=== PATIENT | male | born 1955 | race Caucasian/White ===

== ENCOUNTER 2019-09-17 15:40 | Emergency (ER) | payer BC ==
[~2019-09-17 15:40] MED LIST: CRESTOR20 MG PO; EXFORGE 10-1601 EACH PO; FENOFIBRATE134 MG PO; JANUVIA50 MG PO; METFORMIN HCL1000 MG PO; NORCO 7.5-3251 EACH PO
[2019-09-17] MEDS ORDERED: NITROGLYCERIN 0.4 MG SUBL ONE (17:42)
[2019-09-17] MEDS ORDERED: CLOPIDOGREL BISULFATE 75 MG TAB ONE (17:42)
== END 2019-09-17 15:58 | disposition short-term general hospital (02) ==
LOC: ER 15:40
DX: R07.9 Chest pain, unspecified (principal)

== ENCOUNTER 2019-09-17 15:54 | Inpatient (IN) | payer BC, OTHER ==
[2019-09-17] VITALS (13 sets, daily range): BP systolic 96–148; BP diastolic 70–97
[~2019-09-17] VITALS: Ht 185.4 cm; Wt 111.1 kg
--- NOTE | 2019-09-17 15:55 | NUR ---
12 LEAD NOTED INFERIOR TN, RECIPRICAL CHANGES NOTED. 1 MM ELVEATION CONSECTIVE LEADS. STAT CALL TO CRISTIAN Hensley TO ACTIVATE HAM BONER.
--- NOTE | 2019-09-17 15:55 | NUR ---
CALLED 911 FOR TRANSFER TO [facility] MAIN FOR STEMI PER MD
--- NOTE | 2019-09-17 16:14 | Emergency Department Note ---
History of Present Illnes History of Present Illness Chief Complaint: chest pain History of Present Illness This is a 63 year old male . Arrival Mode: Car Additional Treatment PSYCHOTHERAPIST SOCIAL WORKER: none Sugarcane Planter Required: No Onset (how long ago): hour(s) (1 hour) Onset quality: gradual Duration (how long): hour(s) (1 hour) Timing of current episode: constant Progression: unchanged Chronicity: new Relieving factors: none Associated symptoms: chest pain Treatments prior to arrival: none Risk factors: htn chol ex tobacco Past Medical/Family History Physician Review I have reviewed the patient's past medical and family history. Any updates have been documented here. Past Medical History Recent Fever: No Clinical Suspicion of Infectio: No New/Unexplained Change in Ment: No Past Medical History: Hypertension, Diabetes Other Medical History: hyperlipedemia Past Surgical History: None Social History Smoking Cessation: Former smoker Alcohol Use: None Any Illegal Drug Use: No TB Exposure/Symptoms: No Physically hurt or threatened: No Review of Systems Review of Systems Constitutional: no symptoms EENTM: no symptoms Cardiovascular: as per HPI Respiratory: no symptoms Gastrointestinal: no symptoms Genitourinary: no symptoms Musculoskeletal: no symptoms Neurological: no symptoms Psychological: no symptoms Endocrine: no symptoms Hematological/Lymphatic: no symptoms Review of other systems All other systems reviewed and negative. Physical Exam Related Data Allergies: Coded Allergies: No Known Allergies (Unverified , 11/10/10) Physical Exam CONSTITUTIONAL Constitutional: well-developed, well-nourished HENT HENT: normocephalic, atraumatic EYES Eyes: PERRL, conjunctivae normal NECK Neck: ROM normal, supple PULMONARY Pulmonary: effort normal, breath sounds normal CARDIOVASCULAR Cardiovascular: regular rhythm, heart sounds normal, intact distal pulses, capillary refill normal, normal rate, strong pulses GASTROINTESTINAL Abdominal: soft, nontender GENITOURINARY SKIN Skin: warm, dry MUSCULOSKELETAL Musculoskeletal: ROM normal NEUROLOGICAL Neurological: alert, oriented x 3, DTRs normal, no gross motor or sensory deficits PSYCHOLOGICAL Psychological: mood/affect normal, behavior normal, thought content normal, judgement normal Results Diagnostics Tests Diagnostic test(s) reviewed: Yes (ekg with st elevation inferior wall) Critical Care Time Subsequent provider I assumed direction of critical care for this patient from another provider of my specialty. Assessment & Plan Assessment & Plan Final Impression: (1) STEMI INVOLVING RIGHT CORONARY ARTERY Assessment & Plan acute inferior wall mi to skilled labor Depart Disposition: ADMITTED Home Meds Reported Medications Hydrocodone Bit/Acetaminophen (NORCO 7.5-325 TABLET) 1 Each Tablet, 1 EA PO PRN for PAIN, TAB every 6 hours if needed 04/08/14 Rosuvastatin Calcium (CRESTOR) 20 Mg Tablet, 20 MG PO DAILY 04/05/14 Amlodipine/Valsartan (EXFORGE 10-160 MG TABLET) 1 Each Tablet, PO DAILY 04/05/14 Fenofibrate,Micronized (FENOFIBRATE) 134 Mg Capsule, 134 MG PO DAILY 04/05/14 Sitagliptin Phosphate (JANUVIA) 50 Mg Tablet, 50 MG PO DAILY 04/05/14 Metformin Hcl (METFORMIN HCL) 1,000 Mg Tablet, 1000 MG PO BID 04/05/14 Medications in the ED aspirin and oxygen KAIA GUO MD September 17, 2019 16:14
[2019-09-17] MEDS ORDERED: ASPIRIN 81 MG CHEW TAB PO ONE (16:15)
[2019-09-17] MEDS ORDERED: ASPIRIN 81 MG CHEW TAB ONE (16:21)
--- NOTE | 2019-09-17 16:22 | NUR ---
pt left hopd and on phone with charge in er and pt arrived to [facility] main at 1631
--- NOTE | 2019-09-17 16:22 | NUR ---
EKG AND LABS SENT WITH EMS
[2019-09-17] MEDS ORDERED: NITROGLYCERIN 0.4 MG SUBL SL ONE ×2 (17:00→17:30)
[2019-09-17] MEDS ORDERED: CLOPIDOGREL BISULFATE 75 MG TAB PO ONE (17:00)
[2019-09-17] MEDS ORDERED: CLOPIDOGREL BISULFATE 300 MG TAB-DO NOT STOCK PO ONE (17:00)
[2019-09-17 17:16] LABS: BASOPHILS # (AUTO) 0.1 (0.0-0.1); BASOPHILS % 0.7 % (0.0-1.0); EOSINOPHILS # (AUTO) 0.1 (0.0-0.4); EOSINOPHILS % 0.8 % (0.0-6.0); HEMATOCRIT 51.9 % (38.2-49.6); HEMOGLOBIN 17.9 g/dL (14.0-18.0); LYMPHOCYTES # (AUTO) 1.8 (1.0-3.2); LYMPHOCYTES % 16.7 % (18.0-39.1); MEAN CORPUSCULAR HEMOGLOBIN 30.5 pg (28-32); MEAN CORPUSCULAR HGB CONC 34.5 g/dL (31-35); MEAN CORPUSCULAR VOLUME 88.6 fL (81-99); MONOCYTES # (AUTO) 0.7 (0.2-0.8); MONOCYTES % 6.6 % (4.4-11.3); NEUTROPHILS # (AUTO) 7.9 (2.1-6.9); NEUTROPHILS % 74.7 % (38.7-80.0); PLATELET COUNT 238 x10e3/uL (140-360); RED BLOOD COUNT 5.86 x10e6/uL (4.3-5.7); RED CELL DISTRIBUTION WIDTH 13.3 % (11.7-14.4)
[2019-09-17 17:26] LABS: INR 0.97; PARTIAL THROMBOPLASTIN TIME 26.9 seconds (23.8-35.5); PROTHROMBIN TIME 13.5 seconds (11.9-14.5)
[2019-09-17] MEDS ORDERED: ONDANSETRON HCL INJ 2MG/ML 2ML 2 MG/ML VIAL IV PRN (17:30)
[2019-09-17] MEDS ORDERED: CLOPIDOGREL BISULFATE 75 MG TAB PO SCH (17:30)
[2019-09-17 17:34] LABS: ALANINE AMINOTRANSFERASE 38 IU/L (0-55); ALBUMIN 4.5 g/dL (3.5-5.0); ALBUMIN/GLOBULIN RATIO 1.4 (0.8-2.0); ALKALINE PHOSPHATASE 111 IU/L (40-150); ANION GAP 19.4 mmol/L (8-16); BLOOD UREA NITROGEN 10 mg/dL (7-26); BUN/CREATININE RATIO 11 (6-25); CALCIUM 10.4 mg/dL (8.4-10.2); CARBON DIOXIDE 21 mmol/L (22-29); CHLORIDE 102 mmol/L (98-107); CREATINE KINASE 146 IU/L (30-200); CREATININE, SERUM 0.93 mg/dL (0.72-1.25); EST GLOMERULAR FILTRATION RATE > 60 ML/MIN (60-); GLUCOSE 213 mg/dL (74-118); MAGNESIUM 1.7 MG/DL (1.3-2.1); POTASSIUM 4.4 mmol/L (3.5-5.1); SODIUM 138 mmol/L (136-145)
--- NOTE | 2019-09-17 17:42 | NUR ---
laborer filter plant nurse in room with patient, reviewed consent and signed with laborer filter plant nurse.
[2019-09-17] MEDS ORDERED: NITROGLYCERIN 0.4 MG SUBL SL NR (17:45)
[2019-09-17] MEDS ORDERED: HEPARIN SOD (PORCINE) 1000 UNIT/ML 30ML ONE (17:51)
[2019-09-17] MEDS ORDERED: MIDAZOLAM HCL 2 MG/2 ML VIAL ONE ×2 (17:51→18:15)
[2019-09-17] MEDS ORDERED: FENTANYL CITRATE/PF 100MCG/2 ML INJ ONE (17:51)
[2019-09-17] MEDS ORDERED: LIDOCAINE HCL 2% LOCAL 20 ML VIAL ONE ×2 (17:52→19:05)
[2019-09-17] MEDS ORDERED: HEPARIN SOD/SOD CHLORIDE 2,000 ML ONE (17:52)
[2019-09-17] MEDS ORDERED: SODIUM CHLORIDE 0.9% 1000ML 1,000 ML ONE (17:52)
[2019-09-17] MEDS ORDERED: IOPAMIDOL 370 MG/ML 200 ML INFUS..BTL INJ ONE ×2 (17:52→18:39)
[2019-09-17] MEDS ORDERED: NITROGLYCERIN/D5W 200 MCG/ML 250 ML ONE (17:52)
[2019-09-17] MEDS ORDERED: VERAPAMIL HCL 2.5 MG/ML 2 ML VIAL ONE (18:15)
[2019-09-17] MEDS ORDERED: HEPARIN SOD/SOD CHLORIDE 1,000 ML ONE (18:59)
[2019-09-17] MEDS ORDERED: HEPARIN 25,000U/0.45% NS 250ML 250 ML IV ONE (18:59)
--- NOTE | 2019-09-17 19:37 | NUR ---
RECEIVED FROM MASTER BAKER AWAKE AND ALERT. BALLOON PUMP IN PLACE TO RIGHT GROIN, NO BLEEDING OR HEMATOMA AT SITE. BALLOON PUMP SET AT 1:1 WITH AUGMENTATION AT 100. DENIES ANY C/O CHEST PAIN AT THIS TIME. BEDSIDE MONITOR SHOWS NSR WITH ISOLATED BUT FREQUENT PVC. TRB TO RIGHT WRIST WITH 12 CC OF AIR IN BALLOON PER CL NURSE. TO BEGIN DECREASING PRESSURE AT 2100. HEPARIN GTT TO BE STARTED AFTER TRB REMOVED
--- OUTSIDE RECORDS SUMMARY | 2019-09-17 19:55 | XMS REPORT ---
Author Author [facility] t Organization [facility] Address [address] [place] [address] Phone Unavailable Care Team Providers Care Environmental Test Technician Name Role Phone DO PRACHI MCDONALD PCP Payers Payer Name Policy Type Policy Number Effective Date Expiration Date S ana [employer] [place] Ppo NA [facility] Problems This patient has no known problems. Allergies, Adverse Reactions, Alerts This patient has no known allergies or adverse reactions. Social History Social Habit Start Date Stop Date Quantity Comments Source Sex Assigned At 1955 00:00:00 1955 00:00:00 Male [facility] Medications Ordered Medication Name Filled Medication Name Start Date Stop Da te Current Medication? Ordering Clinician Indication Dosage Frequency Signature (SIG) Comments Components Source Amlodipine/Valsartan (Exforge 10-160 Mg Tablet) 1 Each TABLET Amlodipine/Valsartan (Exforge 10-160 Mg Tablet) 1 Each TABLET Ye s Daily [facility] Fenofibrate,Micronized (Fenofibrate) 134 Mg CAPSULE Fe nofibrate,Micronized (Fenofibrate) 134 Mg CAPSULE Yes 134 Daily [facility] Hydrocodone Bit/Acetaminophen ([place]atiot 7.5-325 Tablet) 1 Each TABLET Hydrocodone Bit/Acetaminophen ([place]at[place] 7.5-325 Tablet) 1 Each TABLET Yes 1 As Needed [facility] Metformin Hcl Metformin Hcl Yes 1000 Twice A Day [facility] Rosuvastatin Calcium (Crestor) 20 Mg TABLET Rosuvastat in Calcium (Crestor) 20 Mg TABLET Yes 20 Daily [facility] Sitagliptin Phosphate (Januvia) 50 Mg TABLET Sitaglipt in Phosphate (Januvia) 50 Mg TABLET Yes 50 Daily [facility] Vital Signs Vital Name Observation Time Observation Value Comments Source Weight 2019-09-17 15:54:00 245 [lb_av] [facility] BMI (Body Mass Index) 2019-09-17 15:54:00 32.3 kg/m2 [facility] Procedures This patient has no known procedures. Encounters Start Date/Time End Date/Time Encounter Type Admission Type [facility] Care Department Encounter ID Source 2019-09-17 15:40:00 2019-09-17 15:58:00 Departed Emergency Room [facility] [id number] [facility] 2019-09-17 15:54:00 2019-09-17 15:54:00 Registered Emergency Room [facility] [id number] [facility] Results This patient has no known results.
--- NOTE | 2019-09-17 21:12 | NUR ---
INITIATED REMOVAL OF TR BAND - NO BLEEDING OR HEMATOMA TO SITE
--- NOTE | 2019-09-17 21:32 | NUR ---
CONTINUE TO REMOVE TR BAND, NO BLEEDING OR HEMATOMA NOTED AT SITE
[2019-09-17] MEDS ORDERED: MORPHINE SULFATE INJ 4 MG/ML INJ 1ML IV PRN (21:45)
--- NOTE | 2019-09-17 21:47 | NUR ---
ATTEMPTED TO CALL REPORT TO [facility], REQUESTED CALL BACK IN 30 MINUTES
--- NOTE | 2019-09-17 21:52 | NUR ---
CONTINUE TO REMOVE TR BAND
[2019-09-17] MEDS ORDERED: ATORVASTATIN 40 MG TAB PO SCH (22:00)
[2019-09-17] MEDS ORDERED: SODIUM CHLORIDE 0.9% 1000ML 1,000 ML IV SCH (22:00)
[2019-09-17] MEDS ORDERED: HEPARIN SOD (PORCINE) 5,000 UNIT/ML VIAL IV NR (22:05)
--- NOTE | 2019-09-17 22:12 | NUR ---
CONTINUE TO DECREASE PRESSURE TO TR BAND, NO HEMATOMA OR BLEEDING NOTED AT SITE
[2019-09-17] MEDS ORDERED: HEPARIN 25,000 UNIT 1,000 UNIT in DEXTROSE 5% 250ML 250 ML IV SCH (22:15)
--- NOTE | 2019-09-17 22:30 | NUR ---
REPORT CALLED TO IVAN LOPEZ AT [facility]. HE IS AWARE THAT CURRENT ORDERS ARE TO START HEPARIN DRIP 2 HRS AFTER TR BAND IS REMOVED AND TR BAND WILL BE REMOVED BY 2300.
--- NOTE | 2019-09-17 22:35 | NUR ---
CALL PLACED TO MARY JESSICA, SPOUSE, NOTIFIED OF TRANSFER AND UNIT/BED PATIENT WILL BE GOING TO
--- NOTE | 2019-09-17 22:57 | NUR ---
RIGHT TRB REMOVED, NO BLEEDING OR HEMATOMA AT SITE
--- NOTE | 2019-09-18 00:05 | NUR ---
[facility] HERE TO TRANSPORT PATIENT TO [facility]. [facility]. ACCOMPANIED BY CARTRIDGE ASSEMBLING MACHINE ADJUSTER X 2
[2019-09-18] MEDS ORDERED: ASPIRIN 81 MG ENTERIC COATED PO SCH (09:00)
[2019-09-18] MEDS ORDERED: METOPROLOL SUCCINATE 25 MG TAB XL PO SCH (09:00)
--- NOTE | 2019-09-20 10:42 | Consultation ---
DATE OF CONSULTATION: 09/17/2019 Cardiology Consultation HISTORY OF PRESENT ILLNESS: This is a 63-year-old man with a history of hypertension, hyperlipidemia, prior tobacco use, and diabetes mellitus, [facility] with progressively worsening chest pain. The patient states that he was mowing his lawn, started to have [id number] central chest pressure with radiation to the left arm, associated with an unwell feeling, diaphoresis, and nausea. He was found to have acute changes inferiorly of his electrocardiogram and was taken to the catholic priest. He was noted to have severe multivessel coronary artery disease. An intra-aortic balloon pump was placed and he was transported to the intensive care unit. PAST MEDICAL HISTORY: As stated above. PAST SURGICAL HISTORY: Cardiac catheterization. PAST FAMILY HISTORY: Noncontributory to current illness. SOCIAL HISTORY: No current illicit drug, alcohol, or tobacco use. He is a former smoker. Social alcohol use. ALLERGIES: NO KNOWN DRUG ALLERGIES. MEDICATIONS: See medication reconciliation form. PHYSICAL EXAMINATION: VITAL SIGNS: Temperature 98.1, heart rate is 75, respirations are 18, blood pressure is 120/72, and oxygen saturation is 97% on 2 L nasal cannula. GENERAL: Well-appearing, well built, no apparent distress. Alert and oriented x3. HEAD: Normocephalic and atraumatic. EYES: The extraocular muscles are intact. Conjunctiva is clear. NECK: No JVD. No bruits. CARDIOVASCULAR: Regular rate and rhythm. LUNGS: Clear to auscultation. ABDOMEN: Soft, nontender, and nondistended. EXTREMITIES: No clubbing, cyanosis, or edema. VASCULAR: 2+ pulses. SKIN: Warm, dry, and intact. NEUROLOGIC: No focal deficits noted. Electrocardiogram showed normal sinus rhythm with premature ventricular complexes and ST elevations inferiorly. IMPRESSION: 1. Inferior ST-elevation myocardial infarction. 2. Coronary artery disease. 3. Hypertension. 4. Hyperlipidemia. 5. Diabetes mellitus. 6. Premature ventricular contractions. 7. Former tobacco use. RECOMMENDATIONS: The patient will need to be transferred for coronary artery bypass graft surgery. Unfortunately, he received clopidogrel at an outlying facility. We will need to wait for washout or check TN use. Continue intra-aortic balloon pump one-to-one counterpulsation. He was started on aspirin and atorvastatin along with metoprolol. We will continue to follow along until transfer. DO BONI Torres/WALLY /[id number]
== END 2019-09-18 00:06 | disposition short-term general hospital (02) | DRG 272 ==
LOC: FSED 15:54 → CATH LAB 17:55 → ICU 19:52
PROC: 02703ZZ Dilation of Coronary Artery, One Artery, Percutaneous Approach (ICD-10-PCS; principal; 2019-09-17)
PROC: 5A02210 Assistance with Cardiac Output using Balloon Pump, Continuous (ICD-10-PCS; 2019-09-17)
DX: I21.19 ST elevation (STEMI) myocardial infarction involving other coronary artery of inferior wall (principal); I25.10 Atherosclerotic heart disease of native coronary artery without angina pectoris; I10 Essential (primary) hypertension; I49.3 Ventricular premature depolarization; Z87.891 Personal history of nicotine dependence; E11.9 Type 2 diabetes mellitus without complications; E78.5 Hyperlipidemia, unspecified
CPT/HCPCS: 33970; 36415; 80053; 82550; 82553; 83735; 83880; 84484; 85025; 85610; 85730; 87635; 92920; 93005; 93454; 99152; 99153; 99284; C1725; C1769; C1887; J1644; J2001; J2250; J3010; J7030; Q9967

== ENCOUNTER 2020-01-17 19:00 | Emergency (ER) | payer BC, OTHER ==
[~2020-01-17] VITALS: Ht 185.4 cm; Wt 108.9 kg
--- NOTE | 2020-01-17 19:19 | Emergency Department Note ---
History of Present Illnes History of Present Illness Chief Complaint: Extremity Trauma/Pain History of Present Illness This is a 64 year old male accidentally fell on a curb twisted left knee, hurt on walking. Able to walk but slow Arrival Mode: Car Onset (how long ago): hour(s) Radiation: Reports non-radiation Severity: moderate Onset quality: sudden Duration (how long): hour(s) Progression: unchanged Relieving factors: immobilization Exacerbating factors: movement Associated symptoms: Reports denies other symptoms Treatments prior to arrival: none Past Medical/Family History Physician Review I have reviewed the patient's past medical and family history. Any updates have been documented here. Past Medical History Past Medical History: Hypertension, Diabetes, CAD Other Medical History: hyperlipedemia Past Surgical History: None Other Surgery: UNK Social History Smoking Cessation: Unknown if ever smoked Alcohol Use: None TB Exposure/Symptoms: No Physically hurt or threatened: No Family History Family history of heart diseas: No Other Last Tetanus: UNK Any Pre-Existing Lines (PICC,: No Review of Systems Review of Systems Constitutional: Reports no symptoms EENTM: Reports no symptoms Cardiovascular: Reports no symptoms Respiratory: Reports no symptoms Gastrointestinal: Reports no symptoms Genitourinary: Reports no symptoms Musculoskeletal: Reports as per HPI, Reports joint pain, Reports muscle pain Integumentary: Reports no symptoms Neurological: Reports no symptoms Psychological: Reports no symptoms Endocrine: Reports no symptoms Hematological/Lymphatic: Reports no symptoms Physical Exam Related Data Allergies: Coded Allergies: No Known Allergies (Unverified , 11/10/10) Vital signs reviewed: Yes Physical Exam CONSTITUTIONAL Constitutional: Present well-developed, Present well-nourished, Present obese HENT HENT: Present normocephalic, Present atraumatic, Present oropharynx clear/moist, Present nose normal HENT L/R: Present left ext ear normal, Present right ext ear normal EYES Eyes: Reports PERRL, Reports conjunctivae normal NECK Neck: Present ROM normal PULMONARY Pulmonary: Present effort normal, Present breath sounds normal CARDIOVASCULAR Cardiovascular: Present regular rhythm, Present heart sounds normal, Present capillary refill normal, Present normal rate GASTROINTESTINAL Abdominal: Present soft, Present nontender, Present bowel sounds normal GENITOURINARY Genitourinary: Present exam deferred SKIN Skin: Present warm, Present dry MUSCULOSKELETAL Musculoskeletal: Present ROM normal, Present tenderness (tender left lateral knee), Present swelling (slight swelling) NEUROLOGICAL Neurological: Present alert, Present oriented x 3, Present no gross motor or sensory deficits PSYCHOLOGICAL Psychological: Present mood/affect normal, Present judgement normal Results Imaging Imaging results reviewed: Yes Imaging Comments no acute , has DJD Assessment & Plan Medical Decision Making MDM sprain Assessment & Plan Final Impression: (1) Acute pain due to trauma (2) Sprain of left knee Depart Disposition: HOME, SELF-nursing home Meds Active Scripts Ondansetron Hcl* (ZOFRAN*) 4 Mg Tablet, 4 MG SL Q6H PRN for NAUSEA, #14 MG 0 Refills Prov:LUPE ESTEBAN MD 01/17/20 Acetaminophen/Codeine* (TYLENOL # 3*) 1 Ea Tab, 1 TAB PO Q4HR PRN for pain or cough for 60 Days, #30 Prov:LUPE ESTEBAN MD 01/17/20 Reported Medications Hydrocodone Bit/Acetaminophen (NORCO 7.5-325 TABLET) 1 Each Tablet, 1 EA PO PRN for PAIN, TAB every 6 hours if needed 04/08/14 Rosuvastatin Calcium (CRESTOR) 20 Mg Tablet, 20 MG PO DAILY 04/05/14 Amlodipine/Valsartan (EXFORGE 10-160 MG TABLET) 1 Each Tablet, PO DAILY 04/05/14 Fenofibrate,Micronized (FENOFIBRATE) 134 Mg Capsule, 134 MG PO DAILY 04/05/14 Sitagliptin Phosphate (JANUVIA) 50 Mg Tablet, 50 MG PO DAILY 04/05/14 Metformin Hcl (METFORMIN HCL) 1,000 Mg Tablet, 1000 MG PO BID 04/05/14 Physician Attestation Provider Attestation A OPERATOR risk score 280. f/u with his orthopedic doctor LUPE ESTEBAN MD Jan 17, 2020 19:19
--- NOTE | 2020-01-17 19:51 | Diagnostic Imaging Report ---
Knee limited left CPT code: 79202 Indication: Fall, lateral pain Technique: AP and lateral view obtained of the left knee. Comparison: None Findings: No fracture or dislocation. Mild prominence of the tibial spines. Calcifications of the menisci, lateral greater than medial. The lateral aspect of the lateral compartment demonstrates prominent soft tissue. No joint effusion. Diffuse ectasia of the popliteal artery. IMPRESSION: No acute fracture or dislocation. Mild degenerative changes of the knee with bilateral chondrocalcinosis. Acute meniscal injury cannot be excluded by x-ray. Consider further evaluation of the knee with MRI. This can be performed on an outpatient basis. Signed by: Dr. Wesley Salazar MD on 01/17/2020 7:48 PM
[2020-01-17] MEDS ORDERED: TYLENOL # 31 EA PO (19:53)
[2020-01-17] MEDS ORDERED: ZOFRAN4 MG SL (19:53)
--- OUTSIDE RECORDS SUMMARY | 2020-01-17 21:34 | XMS REPORT | Clinical Summary ---
Author Author [facility] Address Unknown Phone Unavailable Care Team Providers Care Human Services Assistant Name Role Phone Amos Ruiz DO PCP Allergies Not on File Medications Not on file Active Problems Not on file Encounters Care Team Description Date Type Specialty 12/06/2019 Travel 11/30/2019 Travel Amos Ruiz DO Pain in left hip (Primary Dx); Unilateral primary osteoarthritis, left hip 11/30/2019 Transcribe Access Orders after 01/16/2019 Social History Date Tobacco Use Types Packs/Day Years Used Never Assessed Sex Assigned at Date Recorded Not on file Last Filed Vital Signs Not on file Plan of Treatment Health Maintenance Due Date Last Done Comments DIABETIC RETINAL EYE EXAM 1955 DIABETIC FOOT EXAM 1966 URINE MICROALBUMIN 1966 COLONOSCOPY SCREENING 2006 SHINGLES VACCINES (#1) 2006 INFLUENZA VACCINE 11/20/2019 Procedures Comments Procedure Name Priority Date/Time Associated Diag nosis MRI HIP WO CONTRAST LT Routine 12/06/2019 Pain in left hip 12:05 PM CDT Unilateral primary osteoarthritis, left hip after 01/16/2019 Results * MRI HIP WO CONTRAST LT (12/06/2019 12:05 PM CDT) Specimen Narrative Performed At [facility] EXAMINATION: MRI HIP WO CONTRAST LT CLINICAL HISTORY: M25.552 Pain in lef t hip, M16.12 Unilateral primary osteoarthritis left hip, DJD LEFT HIP PAIN M16.12 M25.552 TECHNIQUE: Multiplanar, multisequence M R imaging examination of the left hip obtained without contrast. Radial sangita ging also archived and interpreted. COMPARISON: None. IMPRESSION: 1.Marrow signal show no acute fracture or AVN. Hypertrophy of the acetabular roof with mild subchondral sclerosis an d marrow cystic formation indicating mild to moderate OA. Mild chondral thinning peripherally in the superior aspect of the hip joint. No joint effusion or synovitis. 2.A nondisplaced tear of the superior a cetabular labrum with lobulated parameniscal cyst formation measuring 3 cm, series 8 image 30 and series 9 image 5. 3.Low-grade partial tearing of the comm on hamstring tendon origin. Remaining visualized muscle groups appear well-ma intained. Visualized portions of the sciatic nerve appear well-maintained. SUMMARY: Mild to moderate hip OA with a likely d egenerative nondisplaced superior acetabular labral tear and parameniscal cyst. Low-grade partial tearing common hamstr ing tendon origin [id number] Procedure Note Hm Interface, Radiology Results - 12/06/2019 12:39 PM CDT EXAMINATION: MRI HIP WO CONTRAST LT CLINICAL HISTORY: M25.552 Pain in left hip, M16.12 Unilateral primary osteoarthritis left hip, DJD LEFT HIP PAIN M16.12 M25.552 TECHNIQUE: Multiplanar, multisequence MR imaging examination of the left hip obtained without contrast. Radial imaging also archived and interpreted. COMPARISON: None. IMPRESSION: 1.Marrow signal show no acute fracture o r AVN. Hypertrophy of the acetabular roof with mild subchondral sclerosis and marrow cystic formation indicating mild to moderate OA. Mild chondral thinning peripherally in the superior aspect of the hip joint. No joint effusion or synovitis. 2.A nondisplaced tear of the superior ac etabular labrum with lobulated parameniscal cyst formation measuring 3 cm, series 8 image 30 and series 9 image 5. 3.Low-grade partial tearing of the commo n hamstring tendon origin. Remaining visualized muscle groups appear well-maintained. Visualized portions of the sciatic nerve appear well-maintained. SUMMARY: Mild to moderate hip OA with a likely degenerative nondisplaced superior acetabular labral tear and parameniscal cyst. 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
--- OUTSIDE RECORDS SUMMARY | 2020-01-17 21:35 | XMS REPORT | Clinical Summary ---
Author Author TARUN [facility] Address Unknown Phone Unavailable Care Team Providers Care Lmsw Name Role Phone PCP Unavailable Allergies No Known Allergies Medications End Date Status Medication Sig Dispensed Refills Start Date Active fenofibrate micronized Take 134 mg 0 (LOFIBRA) 134 MG capsule by mouth every morning before breakfast. Active insulin glargine (LANTUS To use 20 45 mL 3 0 SOLOSTAR U-100 INSULIN) units bid. 0 100 unit/mL (3 mL) InPn Active insulin pen needles (BD Use 5 a day. 500 each 3 0 ULTRA-FINE ZENY) 4 mm x 0 32 G 09/24/2020 Active blood-glucose meter kit Glucometer, 500 each 3 Test strips 0 to use 5 a day # 500 refills x 3; lancets to use 5 a day # 500 refills x3. Active rosuvastatin (CRESTOR) 20 Take 1 tablet 30 tablet 0 MG tablet (20 mg total) 0 by mouth daily. Active clopidogreL (PLAVIX) 75 Take 1 tablet 30 tablet 0 mg tablet (75 mg total) 0 by mouth daily. Active losartan (COZAAR) 50 MG Take 1 tablet 30 tablet 0 tablet (50 mg total) 0 by mouth daily. Active metoprolol tartrate Take 1 tablet 60 tablet 0 (LOPRESSOR) 50 MG tablet (50 mg total) 0 by mouth 2 (two) times daily. Active furosemide (LASIX) 40 MG Take 1 tablet 30 tablet 0 tablet (40 mg total) 0 by mouth daily. Active potassium chloride SA Take 1 tablet 30 tablet 0 (K-DUR,KLOR-CON) 20 MEQ (20 mEq 0 tablet total) by mouth daily. Active NOVOLOG FLEXPEN U-100 INJECT 4 20 0 09/29/19 2 INSULIN 100 unit/mL (3 UNITS 3 TIMES 0 mL) InPn DAILY AFTER MEALS Active apixaban (ELIQUIS) 5 mg Take 1 tablet 180 tablet 0 Tab tablet (5 mg total) 0 by mouth 2 (two) times daily. 09/26/2019 Discontinued rosuvastatin (CRESTOR) 20 Take 20 mg by 0 MG tablet mouth daily. 09/26/2019 Discontinued amlodipine-valsartan Take 1 tablet 0 (EXFORGE) 10-160 mg per by mouth tablet daily. 09/25/2019 Discontinued SITagliptin (JANUVIA) 50 Take 50 mg by 0 MG tablet mouth daily. 09/21/2019 Discontinued metFORMIN (GLUCOPHAGE) Take 1,000 mg 0 1000 MG tablet by mouth 2 (two) times daily with breakfast and dinner. 10/07/2019 Discontinued insulin lispro (HUMALOG To use via 45 mL 3 KWIKPEN INSULIN) 100 sliding scale 0 unit/mL InPn from 4 to 20 units three times a day pre meals. 10/08/2019 Discontinued aspirin 81 MG EC tablet Take 1 tablet 30 tablet 0 (81 mg total) 0 by mouth daily. 10/01/2019 HYDROcodone-acetaminophen Take 1 tablet 20 tablet 0 (NORCO 10-325) 10-325 mg by mouth 0 per tablet every 6 (six) hours as needed for Pain for up to 5 days. 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 Type 2 diabetes mellitus 09/18/2019 Hypertension 09/18/2019 HLD (hyperlipidemia) 09/18/2019 Acute respiratory insufficiency Hypotension due to hypovolemia Acute blood loss anemia Thrombocytopenia Hyperglycemia Encounters Care Team Description Date Type Specialty Kim Arias RN sts 30 day f/u 2019 Telephone Intensive Care Poli Campa MD 10/08/2019 Anesthesia Event Nemesio Grove MD EPS & ABLATION OF SVT W/ CARTO & MAC ANE STHESIA 10/08/2019 Surgery Poli Campa MD 10/07/2019 Anesthesia Cardiology Event Nemesio Grove MD Kazim, Lubna Syed, MD Acute blood loss anemia 10/07/2019 Hospital Cardiology - Encounter 10/08/2019 Janine Campbell MD Greet, Brian David, MD Post-operative state 10/07/2019 Office Visit Cardiology Viktoria Diana MD 10/07/2019 Orders Only Internal Medicine Janine Campbell MD BYPASS,AORTO CORONARY AYDEE/SVG 09/21/2019 Surgery Maurizio Fernandez, GOSIA 09/21/2019 Anesthesia Event Nick Walters MD Sheth, Samar S, MD Kazim, Viktoria Gimenez MD Coronary artery disease involving [place] coronary artery of [place] heart with unstable angina pectoris (HCC) (Primary Dx) 09/18/2019 Hospital Cardiology - Encounter 09/26/2019 09/18/2019 Travel 09/18/2019 Orders Only General Internal Me dicine after 01/16/2019 Family History Medical History Relation Name Comments Heart disease Father Relation Name Status Comments Father Social History Date Tobacco Use Types Packs/Day Years Used Quit: 04/21/2019 Former Smoker Cigarettes 0.5 20 Smokeless Tobacco: Never Used Alcohol Use Drinks/Week oz/Week Comments No Alcohol Habits Answer Date Recorded How often do you have a drink containing alcohol? Never 09/18/2019 How many drinks containing alcohol do you have on No t asked a typical day when you are drinking? How often do you have six or more drinks on one Not asked occasion? Sex Assigned at Date Recorded Not on file Industry Job Start Date Occupation Not on file Not on file Not on file Travel End Travel History Travel Start No recent travel history available. Last Filed Vital Signs Time Taken Vital Sign Reading 10/08/2019 10:00 PM CDT Blood Pressure 125/84 10/08/2019 10:00 PM CDT Pulse 92 10/08/2019 7:35 PM CDT Temperature 36.3 C (97.4 F) 10/08/2019 10:00 PM CDT Respiratory Rate 17 10/08/2019 10:00 PM CDT Oxygen Saturation 96% 09/23/2019 8:00 PM CDT Inhaled Oxygen 28% Concentration 10/07/2019 10:50 AM CDT Weight 104.8 kg (231 lb) 10/07/2019 10:50 AM CDT Height 182.9 cm (6') 10/07/2019 10:50 AM CDT Body Mass Index 31.33 Plan of Treatment Health Maintenance Due Date Last Done Comments COLON CANCER SCREENING 1956 COLONOSCOPY PNEUMOCOCCAL VACCINE 2-64 1962 YEARS AT RISK (1 of 1 - PPSV23) DIABETIC EYE EXAM 1966 DIABETIC FOOT EXAM 1966 URINE MICROALBUMIN 1966 INFLUENZA VACCINE (#1) 2019 HEMOGLOBIN A1C 03/21/2020 09/20/2019, 020 LIPID PANEL 09/19/2022 09/20/2019, 020 Procedures Comments Procedure Name Priority Date/Time Associated Diag nosis RHYTHM STRIP - SCAN 10/21/2019 2:10 PM CDT RHYTHM STRIP - SCAN 10/12/2019 10:32 AM CDT REPORT OF PROCEDURE - 10/12/2019 ENDOSCOPY SCAN 10:32 AM CDT CARDIAC CATH REPORT - 10/12/2019 SCAN 10:32 AM CDT POCT-GLUCOSE METER Routine 10/08/2019 8:58 PM CDT EPS & ABLATION OF SVT W/ 10/08/2019 SVT (suprave ntricular CARTO & MAC ANESTHESIA 1:59 PM CDT tachycardia) ( HCC) POCT-GLUCOSE METER Routine 10/08/2019 12:28 PM CDT POCT-GLUCOSE METER Routine 10/08/2019 8:29 AM CDT CBC W/PLT COUNT & AUTO Routine 10/08/2019 DIFFERENTIAL 1:37 AM CDT CBC W/PLT COUNT & AUTO Routine 10/08/2019 DIFFERENTIAL 1:37 AM CDT PT/APTT Routine 10/08/2019 1:37 AM CDT MAGNESIUM Routine 10/08/2019 1:37 AM CDT BASIC METABOLIC PANEL (7) Routine 10/08/2019 1:37 AM CDT TROPONIN I Routine 10/08/2019 1:37 AM CDT POCT-GLUCOSE METER Routine 10/07/2019 10:15 PM CDT POCT-GLUCOSE METER Routine 10/07/2019 9:11 PM CDT POCT-GLUCOSE METER Routine 10/07/2019 5:13 PM CDT SARS-COV2/RT-PCR ([facility] & STAT 10/07/2019 REF LABS) 3:48 PM CDT CBC W/PLT COUNT & AUTO Routine 10/07/2019 DIFFERENTIAL 3:42 PM CDT TROPONIN I Routine 10/07/2019 3:42 PM CDT B-TYPE NATRIURETIC FACTOR Routine 10/07/2019 (BNP) 3:42 PM CDT CBC W/PLT COUNT & AUTO Routine 10/07/2019 DIFFERENTIAL 3:42 PM CDT PT/APTT Routine 10/07/2019 3:42 PM CDT MAGNESIUM Routine 10/07/2019 3:42 PM CDT BASIC METABOLIC PANEL (7) Routine 10/07/2019 3:42 PM CDT ECG 12-LEAD Routine 10/07/2019 3:09 PM CDT XR CHEST 1 VIEW Routine 10/07/2019 PORTABLE/BEDSIDE 2:50 PM CDT ECG 12-LEAD Routine 10/07/2019 11:16 AM CDT Procedure Note - Interface, External Ris In - 10/07/2019 3:18 PM CDT Ventricula r Rate 141 BPM Atrial Rate 282 BPM QRS Duration 84 ms Q-T Interval 192 ms QTC Calculatio n(Bazett) 294 ms P [place] 252 degrees R [place] -38 degrees T [place] 104 degrees Poor data quality, interpreta tion may be adversely affected Atrial flutter with 2:1 A-V conduction Left axis deviation Pulmonary disease pattern Inferior infarct (cited on or before 0) Abnormal ECG When compared with ECG of 11:13, No significan t change was found ECG 12-LEAD Routine 10/07/2019 11:13 AM CDT Procedure Note - Interface, External Ris In - 10/07/2019 3:18 PM CDT Ventricula r Rate 141 BPM Atrial Rate 282 BPM QRS Duration 82 ms Q-T Interval 190 ms QTC Calculatio n(Bazett) 291 ms P [place] 257 degrees R [place] -36 degrees T [place] 124 degrees Atrial flutter with 2:1 A-V conduction Left axis deviation Inferior infarct (cited on or before 0) Anterior infarct (cited on or before 0) Abnormal ECG When compared with ECG of 11:11, No significan t change was found ECG 12-LEAD Routine 10/07/2019 11:13 AM CDT ECG 12-LEAD Routine 10/07/2019 11:11 AM CDT Procedure Note - Interface, External Ris In - 10/07/2019 3:18 PM CDT Ventricula r Rate 141 BPM Atrial Rate 282 BPM QRS Duration 84 ms Q-T Interval 192 ms QTC Calculatio n(Bazett) 294 ms P [place] 255 degrees R [place] -35 degrees T [place] 114 degrees Atrial flutter with 2:1 A-V conduction Left axis deviation Inferior infarct (cited on or before 0) Possible Anterior infarct (cited on or before 0) Abnormal ECG When compared with ECG of 10:59, Atrial flutter has replaced Sinus rhythm Vent. rate has increased BY 62 BPM Serial changes of evolving Anterior infarct Present Serial changes of evolving Inferior infarct Present ECG 12-LEAD STAT 10/07/2019 11:11 AM CDT REPORT OF PROCEDURE - 09/28/2019 ENDOSCOPY SCAN 10:12 AM CDT RHYTHM STRIP - SCAN 09/28/2019 10:12 AM CDT VASCULAR DIAGRAM -SCAN 09/28/2019 10:12 AM CDT POCT-GLUCOSE METER Routine 09/26/2019 12:05 PM CDT POCT-GLUCOSE METER Routine 09/26/2019 6:52 AM CDT MAGNESIUM Routine 09/26/2019 4:14 AM CDT BASIC METABOLIC PANEL (7) Routine 09/26/2019 4:14 AM CDT CBC (HEMOGRAM ONLY) Routine 09/26/2019 4:14 AM CDT POCT-GLUCOSE METER Routine 09/25/2019 9:16 PM CDT POCT-GLUCOSE METER Routine 09/25/2019 4:57 PM CDT XR ABDOMEN / KUB 1 VIEW Routine 09/25/2019 3:07 PM CDT POCT-GLUCOSE METER Routine 09/25/2019 12:13 PM CDT POCT-GLUCOSE METER Routine 09/25/2019 7:14 AM CDT XR CHEST 1 VIEW Routine 09/25/2019 PORTABLE/BEDSIDE 6:35 AM CDT CBC W/PLT COUNT & AUTO Routine 09/25/2019 DIFFERENTIAL 4:22 AM CDT PHOSPHORUS Routine 09/25/2019 4:22 AM CDT MAGNESIUM Routine 09/25/2019 4:22 AM CDT CBC W/PLT COUNT & AUTO Routine 09/25/2019 DIFFERENTIAL 4:22 AM CDT BASIC METABOLIC PANEL (7) Routine 09/25/2019 4:22 AM CDT POCT-GLUCOSE METER Routine 09/24/2019 9:16 PM CDT LIMITED 2D ECHOCARDIOGRAM Routine 09/24/2019 6:37 PM CDT POCT-GLUCOSE METER Routine 09/24/2019 4:40 PM CDT POCT-GLUCOSE METER Routine 09/24/2019 11:48 AM CDT XR CHEST 1 VIEW Routine 09/24/2019 PORTABLE/BEDSIDE 8:58 AM CDT POCT-GLUCOSE METER Routine 09/24/2019 7:13 AM CDT CBC W/PLT COUNT & AUTO Routine 09/24/2019 DIFFERENTIAL 4:44 AM CDT PHOSPHORUS Routine 09/24/2019 4:44 AM CDT MAGNESIUM Routine 09/24/2019 4:44 AM CDT CBC W/PLT COUNT & AUTO Routine 09/24/2019 DIFFERENTIAL 4:44 AM CDT BASIC METABOLIC PANEL (7) Routine 09/24/2019 4:44 AM CDT POCT-GLUCOSE METER Routine 09/23/2019 10:08 PM CDT POCT-GLUCOSE METER Routine 09/23/2019 4:25 PM CDT POCT-GLUCOSE METER Routine 09/23/2019 11:46 AM CDT MAGNESIUM Routine 09/23/2019 11:17 AM CDT BASIC METABOLIC PANEL (7) Routine 09/23/2019 11:17 AM CDT CALCIUM, IONIZED Routine 09/23/2019 11:16 AM CDT ECG 12-LEAD Routine 09/23/2019 10:59 AM CDT Procedure Note - Interface, External Ris In - 09/23/2019 11:03 AM CDT Ventricula r Rate 79 BPM Atrial Rate 79 BPM P-R Interval 152 ms QRS Duration 86 ms Q-T Interval 358 ms QTC Calculatio n(Bazett) 410 ms P [place] 30 degrees R [place] -21 degrees T [place] -15 degrees Sinus rhythm with occasional Premature ventricula r complexes Inferior infarct (cited on or before 0) Anterolate ral infarct , possibly acute ACUTE FL / STEMI Abnormal ECG When compared with ECG of 0 05:05, Anterior infarct is now Present Anterolate ral infarct is now Present Non-specif ic change in ST segment in Anterior leads ST less elevated in Lateral leads ECG 12-LEAD Routine 09/23/2019 10:59 AM CDT XR CHEST 1 VIEW Routine 09/23/2019 PORTABLE/BEDSIDE 10:45 AM CDT POCT-GLUCOSE METER Routine 09/23/2019 7:43 AM CDT CBC W/PLT COUNT & AUTO Routine 09/23/2019 DIFFERENTIAL 3:46 AM CDT PHOSPHORUS Routine 09/23/2019 3:46 AM CDT MAGNESIUM Routine 09/23/2019 3:46 AM CDT CBC W/PLT COUNT & AUTO Routine 09/23/2019 DIFFERENTIAL 3:46 AM CDT BASIC METABOLIC PANEL (7) Routine 09/23/2019 3:46 AM CDT CALCIUM, IONIZED Routine 09/23/2019 3:46 AM CDT POCT-GLUCOSE METER Routine 09/23/2019 12:41 AM CDT HEMOGLOBIN AND HEMATOCRIT Routine 09/22/2019 7:36 PM CDT MAGNESIUM Routine 09/22/2019 7:36 PM CDT CALCIUM, IONIZED Routine 09/22/2019 7:36 PM CDT BASIC METABOLIC PANEL (7) Routine 09/22/2019 7:36 PM CDT POCT-GLUCOSE METER Routine 09/22/2019 6:47 PM CDT TRANSFUSION SERVICE 09/22/2019 REPORT - SCAN 5:52 PM CDT POCT-GLUCOSE METER Routine 09/22/2019 1:51 PM CDT POCT-GLUCOSE METER Routine 09/22/2019 8:28 AM CDT HEMOGLOBIN AND HEMATOCRIT Routine 09/22/2019 8:26 AM CDT LACTIC ACID, ARTERIAL Routine 09/22/2019 6:27 AM CDT POCT-GLUCOSE METER Routine 09/22/2019 6:03 AM CDT ECG 12-LEAD Routine 09/22/2019 5:05 AM CDT Procedure Note - Interface, External Ris In - 09/22/2019 5:07 AM CDT Ventricula r Rate 67 BPM Atrial Rate 67 BPM P-R Interval 166 ms QRS Duration 82 ms Q-T Interval 394 ms QTC Calculatio n(Bazett) 416 ms P [place] 33 degrees R [place] -27 degrees T [place] -26 degrees Sinus rhythm with occasional Premature ventricula r complexes Inferior infarct , age undetermin ed Abnormal ECG ECG 12-LEAD Routine 09/22/2019 5:05 AM CDT CALCIUM, IONIZED Routine 09/22/2019 3:47 AM CDT OXYGEN SATURATION, Routine 09/22/2019 MEASURED 3:47 AM CDT BLOOD GAS, ARTERIAL Routine 09/22/2019 3:47 AM CDT CBC (HEMOGRAM ONLY) Routine 09/22/2019 3:47 AM CDT PHOSPHORUS Routine 09/22/2019 3:47 AM CDT MAGNESIUM Routine 09/22/2019 3:47 AM CDT BASIC METABOLIC PANEL (7) Routine 09/22/2019 3:47 AM CDT POCT-GLUCOSE METER Routine 09/22/2019 3:44 AM CDT XR CHEST 1 VIEW Routine 09/22/2019 PORTABLE/BEDSIDE 1:40 AM CDT POCT-GLUCOSE METER Routine 09/22/2019 1:19 AM CDT POCT-GLUCOSE METER Routine 09/21/2019 11:09 PM CDT MAGNESIUM Routine 09/21/2019 11:01 PM CDT POTASSIUM Routine 09/21/2019 11:01 PM CDT BLOOD GAS, ARTERIAL Routine 09/21/2019 11:01 PM CDT POCT-GLUCOSE METER Routine 09/21/2019 9:16 PM CDT BLOOD GAS, ARTERIAL Routine 09/21/2019 9:12 PM CDT PREPARE RBC STAT 09/21/2019 8:03 PM CDT CALCIUM, IONIZED Routine 09/21/2019 8:03 PM CDT HGB/HCT (H&H) - STAT LAB Routine 09/21/2019 7:51 PM CDT GLUCOSE-STAT LAB Routine 09/21/2019 7:51 PM CDT POTASSIUM-STAT LAB Routine 09/21/2019 7:51 PM CDT SODIUM NA-STAT LAB Routine 09/21/2019 7:51 PM CDT BLOOD GAS, ARTERIAL Routine 09/21/2019 7:51 PM CDT OXYGEN SATURATION, Routine 09/21/2019 MEASURED 7:51 PM CDT LACTIC ACID, ARTERIAL Routine 09/21/2019 7:51 PM CDT RRL CRITICAL LABS Routine 09/21/2019 (ABG,NA,K,H&H,GLUCOSE) 7:51 PM CDT ECG 12-LEAD Routine 09/21/2019 7:20 PM CDT ECG 12-LEAD Routine 09/21/2019 7:20 PM CDT Procedure Note - Interface, External Ris In - 09/21/2019 11:42 PM CDT Ventricula r Rate 65 BPM Atrial Rate 65 BPM P-R Interval 196 ms QRS Duration 86 ms Q-T Interval 406 ms QTC Calculatio n(Bazett) 422 ms P [place] 6 degrees R [place] -28 degrees T [place] -14 degrees Normal sinus rhythm Inferior infarct , age undetermin ed Abnormal ECG MAGNESIUM Routine 09/21/2019 6:58 PM CDT POTASSIUM Routine 09/21/2019 6:58 PM CDT PHOSPHORUS STAT 09/21/2019 6:58 PM CDT POCT-GLUCOSE METER Routine 09/21/2019 6:53 PM CDT XR CHEST 1 VIEW Routine 09/21/2019 PORTABLE/BEDSIDE 5:57 PM CDT TRANSFUSION SERVICE 09/21/2019 REPORT - SCAN 5:51 PM CDT PT/APTT STAT 09/21/2019 4:37 PM CDT PROTHROMBIN TIME/INR STAT 09/21/2019 4:37 PM CDT OXYGEN SATURATION, STAT 09/21/2019 MEASURED 4:21 PM CDT CBC W/PLT COUNT & AUTO STAT 09/21/2019 DIFFERENTIAL 4:18 PM CDT HGB/HCT (H&H) - STAT LAB STAT 09/21/2019 4:18 PM CDT GLUCOSE-STAT LAB STAT 09/21/2019 4:18 PM CDT POTASSIUM-STAT LAB STAT 09/21/2019 4:18 PM CDT SODIUM NA-STAT LAB STAT 09/21/2019 4:18 PM CDT COMPREHENSIVE METABOLIC STAT 09/21/2019 PANEL 4:18 PM CDT CBC W/PLT COUNT & AUTO STAT 09/21/2019 DIFFERENTIAL 4:18 PM CDT RRL CRITICAL LABS STAT 09/21/2019 (ABG,NA,K,H&H,GLUCOSE) 4:18 PM CDT MAGNESIUM STAT 09/21/2019 4:18 PM CDT BLOOD GAS, ARTERIAL STAT 09/21/2019 4:18 PM CDT BASIC METABOLIC PANEL (7) STAT 09/21/2019 4:18 PM CDT POCT-ACT Routine 09/21/2019 2:39 PM CDT HGB/HCT (H&H) - STAT LAB STAT 09/21/2019 2:37 PM CDT GLUCOSE-STAT LAB STAT 09/21/2019 2:37 PM CDT POTASSIUM-STAT LAB STAT 09/21/2019 2:37 PM CDT SODIUM NA-STAT LAB STAT 09/21/2019 2:37 PM CDT BLOOD GAS, ARTERIAL STAT 09/21/2019 2:37 PM CDT CALCIUM, IONIZED STAT 09/21/2019 2:37 PM CDT RRL CRITICAL LABS STAT 09/21/2019 (ABG,NA,K,H&H,GLUCOSE) 2:37 PM CDT POCT-ACT Routine 09/21/2019 1:48 PM CDT HGB/HCT (H&H) - STAT LAB STAT 09/21/2019 1:45 PM CDT GLUCOSE-STAT LAB STAT 09/21/2019 1:45 PM CDT POTASSIUM-STAT LAB STAT 09/21/2019 1:45 PM CDT SODIUM NA-STAT LAB STAT 09/21/2019 1:45 PM CDT BLOOD GAS, ARTERIAL STAT 09/21/2019 1:45 PM CDT RRL CRITICAL LABS STAT 09/21/2019 (ABG,NA,K,H&H,GLUCOSE) 1:45 PM CDT POCT-ACT Routine 09/21/2019 1:18 PM CDT HGB/HCT (H&H) - STAT LAB STAT 09/21/2019 1:15 PM CDT GLUCOSE-STAT LAB STAT 09/21/2019 1:15 PM CDT POTASSIUM-STAT LAB STAT 09/21/2019 1:15 PM CDT SODIUM NA-STAT LAB STAT 09/21/2019 1:15 PM CDT BLOOD GAS, ARTERIAL STAT 09/21/2019 1:15 PM CDT RRL CRITICAL LABS STAT 09/21/2019 (ABG,NA,K,H&H,GLUCOSE) 1:15 PM CDT POCT-ACT Routine 09/21/2019 12:48 PM CDT HGB/HCT (H&H) - STAT LAB STAT 09/21/2019 12:45 PM CDT GLUCOSE-STAT LAB STAT 09/21/2019 12:45 PM CDT POTASSIUM-STAT LAB STAT 09/21/2019 12:45 PM CDT SODIUM NA-STAT LAB STAT 09/21/2019 12:45 PM CDT BLOOD GAS, ARTERIAL STAT 09/21/2019 12:45 PM CDT RRL CRITICAL LABS STAT 09/21/2019 (ABG,NA,K,H&H,GLUCOSE) 12:45 PM CDT POCT-ACT Routine 09/21/2019 12:21 PM CDT POCT-ACT Routine 09/21/2019 10:46 AM CDT ANESTHESIA MARIAM Routine 09/21/2019 10:19 AM CDT HGB/HCT (H&H) - STAT LAB STAT 09/21/2019 10:17 AM CDT GLUCOSE-STAT LAB STAT 09/21/2019 10:17 AM CDT POTASSIUM-STAT LAB STAT 09/21/2019 10:17 AM CDT SODIUM NA-STAT LAB STAT 09/21/2019 10:17 AM CDT BLOOD GAS, ARTERIAL STAT 09/21/2019 10:17 AM CDT CALCIUM, IONIZED STAT 09/21/2019 10:17 AM CDT RRL CRITICAL LABS STAT 09/21/2019 (ABG,NA,K,H&H,GLUCOSE) 10:17 AM CDT MARIAM 09/21/2019 Coronary artery dis ease 10:00 AM CDT with angina pectoris, unspecified vessel or lesion type, unspecified whether [place] or transplanted heart (HCC) Special Needs (ICU BED NEEDED) ENDOSCOPIC HARVEST,VEIN 09/21/2019 Coronary nicky ry disease 10:00 AM CDT with angina pectoris, unspecified vessel or lesion type, unspecified whether [place] or transplanted heart (HCC) Special Needs (ICU BED NEEDED) BYPASS,AORTO CORONARY 09/21/2019 Coronary artery disease AYDEE/SVG 10:00 AM CDT with angina pectori s, unspecified vessel or lesion type, unspecified whether [place] or transplanted heart (HCC) Special Needs (ICU BED NEEDED) POCT-GLUCOSE METER Routine 09/21/2019 8:00 AM CDT APTT Routine 09/21/2019 6:44 AM CDT MAGNESIUM Routine 09/21/2019 6:44 AM CDT BASIC METABOLIC PANEL (7) Routine 09/21/2019 6:44 AM CDT CBC (HEMOGRAM ONLY) Routine 09/21/2019 6:44 AM CDT PLATELET AGGREGATION: Routine 09/21/2019 FUNCTION SCREEN 6:44 AM CDT POCT-GLUCOSE METER Routine 09/21/2019 6:38 AM CDT XR CHEST 1 VIEW STAT 09/20/2019 PORTABLE/BEDSIDE 11:46 PM CDT POCT-GLUCOSE METER Routine 09/20/2019 11:27 PM CDT POCT-GLUCOSE METER Routine 09/20/2019 8:23 PM CDT ECG 12-LEAD Routine 09/20/2019 6:05 PM CDT Procedure Note - Interface, External Ris In - 09/20/2019 6:08 PM CDT Ventricula r Rate 63 BPM Atrial Rate 63 BPM P-R Interval 196 ms QRS Duration 90 ms Q-T Interval 418 ms QTC Calculatio n(Bazett) 427 ms P [place] 0 degrees R [place] -31 degrees T [place] -8 degrees Normal sinus rhythm with sinus arrhythmia Left axis deviation Inferior infarct , age undetermin ed Possible Anterior infarct , age undetermin ed T wave abnormalit y, consider lateral ischemia Abnormal ECG ECG 12-LEAD Routine 09/20/2019 6:05 PM CDT ABORH, MANUAL STAT 09/20/2019 4:38 PM CDT POCT-GLUCOSE METER Routine 09/20/2019 4:22 PM CDT SARS-COV2/RT-PCR ([facility] & STAT 09/20/2019 REF LABS) 3:17 PM CDT TYPE AND SCREEN, Routine 09/20/2019 AUTOMATED 3:09 PM CDT POTASSIUM Routine 09/20/2019 3:09 PM CDT APTT Routine 09/20/2019 3:09 PM CDT PROTHROMBIN TIME/INR Routine 09/20/2019 3:09 PM CDT MAGNESIUM Routine 09/20/2019 3:09 PM CDT POCT-GLUCOSE METER Routine 09/20/2019 11:24 AM CDT APTT Routine 09/20/2019 9:13 AM CDT XR CHEST 1 VIEW Routine 09/20/2019 PORTABLE/BEDSIDE 8:17 AM CDT POCT-GLUCOSE METER Routine 09/20/2019 7:25 AM CDT CBC W/PLT COUNT & AUTO Routine 09/20/2019 DIFFERENTIAL 6:47 AM CDT LIPID PANEL Add-On 09/20/2019 6:47 AM CDT MAGNESIUM Routine 09/20/2019 6:47 AM CDT BASIC METABOLIC PANEL (7) Routine 09/20/2019 6:47 AM CDT PLATELET AGGREGATION: AP Routine 09/20/2019 FUNCTION SCREEN 6:47 AM CDT HEMOGLOBIN A1C Routine 09/20/2019 6:47 AM CDT CBC W/PLT COUNT & AUTO Routine 09/20/2019 DIFFERENTIAL 6:47 AM CDT APTT Routine 09/20/2019 2:11 AM CDT APTT Routine 09/19/2019 11:29 PM CDT MAGNESIUM Routine 09/19/2019 11:29 PM CDT POTASSIUM Routine 09/19/2019 11:29 PM CDT POCT-GLUCOSE METER Routine 09/19/2019 9:26 PM CDT APTT Routine 09/19/2019 4:38 PM CDT POCT-GLUCOSE METER Routine 09/19/2019 4:33 PM CDT POCT-GLUCOSE METER Routine 09/19/2019 1:19 PM CDT POCT-GLUCOSE METER Routine 09/19/2019 9:43 AM CDT APTT Routine 09/19/2019 9:24 AM CDT XR CHEST 1 VIEW STAT 09/19/2019 PORTABLE/BEDSIDE 7:53 AM CDT POCT-GLUCOSE METER Routine 09/19/2019 7:52 AM CDT VEIN MAPPING LEGS Routine 09/19/2019 BILATERAL 5:06 AM CDT CAROTID DOPPLER BILATERAL Routine 09/19/2019 4:48 AM CDT PLATELET AGGREGATION: Routine 09/19/2019 FUNCTION SCREEN 4:30 AM CDT CBC W/PLT COUNT & AUTO Routine 09/19/2019 DIFFERENTIAL 2:12 AM CDT BASIC METABOLIC PANEL (7) Routine 09/19/2019 2:12 AM CDT TROPONIN I Routine 09/19/2019 2:12 AM CDT CBC W/PLT COUNT & AUTO Routine 09/19/2019 DIFFERENTIAL 2:12 AM CDT APTT Routine 09/19/2019 2:12 AM CDT POCT-GLUCOSE METER Routine 09/18/2019 8:16 PM CDT TROPONIN I STAT 09/18/2019 8:08 PM CDT APTT Routine 09/18/2019 6:07 PM CDT POCT-GLUCOSE METER Routine 09/18/2019 4:11 PM CDT 2D ECHO W/ DOPPLER STAT 09/18/2019 (CW/PW/COLOR) 11:51 AM CDT XR CHEST 1 VIEW STAT 09/18/2019 PORTABLE/BEDSIDE 11:32 AM CDT POCT-GLUCOSE METER Routine 09/18/2019 11:27 AM CDT APTT Routine 09/18/2019 11:21 AM CDT TROPONIN I STAT 09/18/2019 11:21 AM CDT PLATELET AGGREGATION: STAT 09/18/2019 FUNCTION SCREEN 11:21 AM CDT POCT-GLUCOSE METER Routine 09/18/2019 7:48 AM CDT APTT Routine 09/18/2019 3:22 AM CDT ECG 12-LEAD Routine 09/18/2019 2:59 AM CDT Procedure Note - Interface, External Ris In - 09/18/2019 3:06 AM CDT Ventricula r Rate 70 BPM Atrial Rate 70 BPM P-R Interval 186 ms QRS Duration 88 ms Q-T Interval 372 ms QTC Calculatio n([place]) 401 ms P [place] 0 degrees R [place] -29 degrees T [place] 7 degrees Sinus rhythm with occasional Premature ventricula r complexes Inferior infarct , age undetermin ed Abnormal ECG No previous ECGs available ECG 12-LEAD Routine 09/18/2019 2:59 AM CDT XR CHEST 1 VIEW STAT 09/18/2019 PORTABLE/BEDSIDE 2:52 AM CDT CBC W/PLT COUNT & AUTO Routine 09/18/2019 DIFFERENTIAL 2:43 AM CDT TROPONIN I Routine 09/18/2019 2:43 AM CDT B-TYPE NATRIURETIC FACTOR Routine 09/18/2019 (BNP) 2:43 AM CDT MAGNESIUM Routine 09/18/2019 2:43 AM CDT BASIC METABOLIC PANEL (7) Routine 09/18/2019 2:43 AM CDT CBC W/PLT COUNT & AUTO Routine 09/18/2019 DIFFERENTIAL 2:43 AM CDT HEMOGLOBIN A1C Routine 09/18/2019 2:43 AM CDT LIPID PANEL Routine 09/18/2019 2:43 AM CDT TSH/FREE T4 IF INDICATED Routine 09/18/2019 2:43 AM CDT after 01/16/2019 Results * RHYTHM STRIP - SCAN (10/21/2019 2:10 PM CDT) Only the most recent of 3 results within the time period is included. Narrative Performed At This result has an attachment that is n ot available. * EKG-SCANNED (10/12/2019 10:32 AM CDT) Only the most recent of 2 results within the time period is included. Narrative Performed At This result has an attachment that is n ot available. * CARDIAC CATH REPORT - SCAN (10/12/2019 10:32 AM CDT) Narrative Performed At This result has an attachment that is n ot available. * POC-Glucose meter (10/08/2019 8:58 PM CDT) Only the most recent of 46 results within the time period is included. POC-Glucose Meter 224 (H)Comment: : TESTED AT 70 - 110 mg/dL [address], [facility] [id number]: Trumpet Player/Pbx Teacher ID = [id number] for OMEGA GUILLORY Specimen Blood Performing Organization Address [place] [place] [address] [address] [facility] * PT/aPTT (10/08/2019 1:37 AM CDT) Only the most recent of 3 results within the time period is included. Protime 15.1 (H) 11.9 - 14.2 seconds [facility] INR 1.2 <=5.9 [facility] PTT 31.4 22.5 - 36.0 seconds [facility] Specimen Blood Narrative Performed At Effective 09/16/2018: PT Reference Range Change [facility] New: 11.9-14.2Previous: 11.7-14.7 [facility] MEDICAL CE NTER RECOMMENDED COUMADIN/WARFARIN INR THERA PY RANGES STANDARD DOSE: 2.0-3.0Includes: PRO PHYLAXIS for venous thrombosis, systemic embolization; TREATMENT for venous thro mbosis and/or pulmonary embolus. HIGH RISK: Target INR is 2.5-3.5 for pa williams wiht mechanical heart valves. Performing Organization Address City/State/Zipcode Ph one Number [facility] [address] [place], [place] [address] [facility] * CBC with platelet count + automated diff (10/08/2019 1:37 AM CDT) Only the most recent of 9 results within the time period is included. WBC 8.1 3.5 - 10.5 K/L [facility] RBC 4.16 (L) 4.63 - 6.08 M/L [facility] Hemoglobin 12.6 (L) 13.7 - 17.5 GM/DL [facility] Hematocrit 37.7 (L) 40.1 - 51.0 % [facility] MCV 90.6 79.0 - 92.2 fL [facility] MCH 30.3 25.7 - 32.2 pg [facility] MCHC 33.4 32.3 - 36.5 GM/DL [facility] RDW 13.7 11.6 - 14.4 % [facility] Platelets 425 150 - 450 K/CU MM [facility] MPV 9.0 (L) 9.4 - 12.4 fL [facility] nRBC 0 0 - 0 /100 WBC [facility] % Neutros 62 % [facility] % Lymphs 26 % [facility] % Monos 7 % [facility] % Eos 3 % [facility] % Baso 1 % [facility] # Neutros 5.04 1.78 - 5.38 K/L [facility] # Lymphs 2.12 1.32 - 3.57 K/L [facility] # Monos 0.56 0.30 - 0.82 K/L [facility] # Eos 0.24 0.04 - 0.54 K/L [facility] # Baso 0.08 0.01 - 0.08 K/L [facility] Immature 1 0 - 1 % [facility] Granulocytes-Relative [facility] Specimen Blood Performing Organization Address [facility] one Number [place] [address] [facility] * Troponin I (10/08/2019 1:37 AM CDT) Only the most recent of 6 results within the time period is included. Troponin I 0.02 0.00 - 0.03 ng/mL [facility] Specimen Blood Narrative Performed At Troponin I (TnI) levels must be interpreted in the co ntext of the presenting [facility] symptoms and the clinical findings. Elevated TnI leve ls indicate myocardial [facility] damage, but are not specific for ischem ic heart disease. Elevated TnI levels are seen in patients with other cardiac con ditions (including myocarditis and congestive heart failure), and slight T nI elevations occur in patients with other conditions, including sepsis, koki al failure, acidosis, acute neurological disease, and persistent tachyarrhythmia . Trumpet Player ID - DB Performing Organization Address City/[facility] one Number [place] [address] [facility] * Magnesium (10/08/2019 1:37 AM CDT) Only the most recent of 17 results within the time period is included. Magnesium 1.9Comment: Specimen 1.6 - 2.6 mg/dL [facility] moderately hemolyzed [facility] Specimen Blood Narrative Performed At Trumpet Player ID - [id number] [facility] Performing Organization Address City/[facility] [place] one Number [place] [phone] [place], [place] [address] [facility] * Basic metabolic panel (10/08/2019 1:37 AM CDT) Only the most recent of 14 results within the time period is included. Sodium 132 (L) 136 - 145 meq/L [facility] Potassium 4.7Comment: Specimen 3.5 - 5.1 meq/L [facility] moderately hemolyzed [facility] Chloride 103 98 - 107 meq/L [facility] CO2 21 (L) 22 - 29 meq/L [facility] BUN 9 7 - 21 mg/dL [facility] Creatinine 0.68Comment: Specimen 0.57 - 1.25 mg/dL [facility] moderately hemolyzed [facility] Glucose 212 (H) 70 - 105 mg/dL [facility] Calcium 8.8 8.4 - 10.2 mg/dL [facility] EGFR 118Comment: ESTIMATED GFR IS mL/min/1.73 sq m [facility] NOT ACCURATE CREATININE [facility] CLEARANCE IN PREDICTING GLOMERULAR FILTRATION RATE. ESTIMATED GFR IS NOT APPLICABLE FOR DIALYSIS PATIENTS. Specimen Blood Narrative Performed At Trumpet Player ID - DB [facility] Performing Organization Address [facility] [place] one Number [address] [facility] * SARS-CoV2/RT-PCR (Asymptomatic ONLY) (10/07/2019 3:48 PM CDT) Only the most recent of 2 results within the time period is included. SARS-COV2/RT-PCR Not Detected Not Detected, Negative [facility] SARS-COV-2 PERFORMING LAB [facility] Specimen Other Narrative Performed At Negative results do not preclude SARS-C oV-2 infection and should not be used as [facility] the sole basis for patient management decisions. Nega tive results must be [facility] combined with clinical observations, pa tient history, and epidemiological information. A false negative result ma y occur if a specimen is improperly collected, transported or handled. The limit of detection for this assay i s 250 copies/mL. This SARS CoV-2 test is a rapid, real-t karina RT-PCR test intended for the qualitative detection of nucleic acid f rom SARS-CoV-2 in a nasopharyngeal swab specimen collected from individuals neri pected of COVID-19 by their healthcare provider. This test has not been Food and Drug Ad ministration (FDA) cleared or approved and has been authorized by FDA under an Emergency Use Authorization (EUA). This EUA will be effective until the declara tion that circumstances exist justifying the authorization of the emergency use of in vitro diagnostic tests for detection and/or diagnosis of COVID-19 is terminated under Section 564(b)(2) of the Act or the EUA is revoked under Sec tion 564(g) of the Act. Fact Sheet for Healthcare Providers: https://www.[facility]/Documents/Xpert%20Xpress%20SARS%20CoV-2/Fact%20Sheets/30 2-3802%29MPNU-ZGG-8%20HEALTHCARE%20PROV IDERS%20FACT%20SHEET.pdf Fact Sheet for Healthcare Patients: https://www.[employer]/Documents/Xpert%20Xpress%20SARS%20CoV-2/Fact%20Sheets/30 2-3801%55LTAD-HOD-6%20PATIENT%20FACT%20 SHEET.pdf Performing Laboratory: [address] [address] Performing Organization Address City/State/Zipcode Ph one Number [place] [address] [facility] * B-type Natriuretic Factor (BNP) (10/07/2019 3:42 PM CDT) Only the most recent of 2 results within the time period is included. BNP 166 (H) 0 - 100 pg/mL [facility] Specimen Blood Narrative Performed At Trumpet Player ID - BS [facility] Performing Organization Address City/[facility] Ph one Number [facility] [address] [place], [place] [address] [facility]ENTER * ECG 12 lead (10/07/2019 3:09 PM CDT) Only the most recent of 8 results within the time period is included. Specimen Narrative Performed At Ventricular Rate 137 BPM GE MUSE Atrial Rate 137 BPM P-R Interval 142 ms QRS Duration 84 ms Q-T Interval 266 ms QTC Calculation(Bazett) 401 ms R Rosston -38 degrees T Rosston 124 degrees Atrial flutter with 2 to 1 block Left axis deviation Inferior infarct (cited on or before ) Poor R wave progression Cannot rule out Possible Anterior infarct (cited on or before 20-SEP-2019) Abnormal ECG When compared with ECG of 07-OCT-2019 1 1:13, No significant changes Confirmed by Jorge A WHITE, GARRISON ([id number]) on 11/03/2019 3:28:47 PM Procedure Note Interface, External Ris In - 11/03/2019 3:28 PM CDT Ventricular Rate 137 BPM Atrial Rate 137 BPM P-R Interval 142 ms QRS Duration 84 ms Q-T Interval 266 ms QTC Calculation(Bazett) 401 ms R Rosston -38 degrees T Rosston 124 degrees Atrial flutter with 2 to 1 block Left axis deviation Inferior infarct (cited on or before 20-SEP-2019) Poor R wave progression Cannot rule out Possible Anterior infarct (cited on or before 20-SEP-2019) Abnormal ECG When compared with ECG of 07-OCT-2019 11:13, No significant changes Confirmed by Jorge A WHITE BASANT ([id number]) on 11/03/2019 3:28:47 PM Performing Organization Address City/State/[facility] Ph one Number GE MUSE * XR chest 1 view portable / bedside (10/07/2019 2:50 PM CDT) Only the most recent of 11 results within the time period is included. Specimen Narrative Performed At FINAL REPORT GE [employer] CLINICAL HISTORY: sob TECHNIQUE: 1 view of the chest. COMPARISON: 09/25/2019 IMPRESSION: There are no focal infiltrates or effus ions. The cardiomediastinal silhouette is magnified by technique wi th sternotomy wires. Signed: Olayinka Goetz MD Report Verified Date/Time: 0 15:28:20 Reading Location: [facility] Radiolo gy Reading Room Procedure Note Interface, External Ris In - 10/07/2019 3:30 PM CDT FINAL REPORT CLINICAL HISTORY: sob TECHNIQUE: 1 view of the chest. COMPARISON: 09/25/2019 IMPRESSION: There are no focal infiltrates or effusions. The cardiomediastinal silhouette is magnified by technique with sternotomy wires. Signed: Olayinka Goetz MD Report Verified Date/Time: 10/07/2019 15:28:20 Reading Location: [facility] Radiology Reading Room Performing Organization Address City/State/Zipcode Ph one Number GE RIS * VASCULAR DIAGRAM -SCAN (09/28/2019 10:12 AM CDT) Narrative Performed At This result has an attachment that is n ot available. * CBC (Hemogram only) (09/26/2019 4:14 AM CDT) Only the most recent of 3 results within the time period is included. WBC 8.9 3.5 - 10.5 K/L [facility] RBC 3.64 (L) 4.63 - 6.08 M/L [facility] Hemoglobin 11.3 (L) 13.7 - 17.5 GM/DL [facility] Hematocrit 33.3 (L) 40.1 - 51.0 % [facility] MCV 91.5 79.0 - 92.2 fL [facility] MCH 31.0 25.7 - 32.2 pg [facility] MCHC 33.9 32.3 - 36.5 GM/DL [facility] RDW 13.3 11.6 - 14.4 % [facility] Platelets 259 150 - 450 K/CU MM [facility] MPV 9.8 9.4 - 12.4 fL [facility] nRBC 0 0 - 0 /100 WBC [facility] Specimen Blood Performing Organization Address City/[facility] [place] [facility] [place] one Number [facility] [address] [place], [place] [address] [facility] * XR abdomen / KUB 1 view (09/25/2019 3:07 PM CDT) Specimen Narrative Performed At FINAL REPORT GE RIS TECHNIQUE: Frontal views of the abdomen . INDICATION: 63-year-old man with nausea and abdominal pain. COMPARISON: None. IMPRESSION: Nonobstructive bowel gas pattern. Bones and soft tissues are unremarkable . Signed: Tia Abdalla MD Report Verified Date/Time: 0 16:44:46 Reading Location: [facility] C013Y CT Body Reading Room Procedure Note Interface, External Ris In - 09/25/2019 4:46 PM CDT FINAL REPORT TECHNIQUE: Frontal views of the abdomen. INDICATION: 63-year-old man with nausea and abdominal pain. COMPARISON: None. IMPRESSION: Nonobstructive bowel gas pattern. Bones and soft tissues are unremarkable. Signed: Tia Abdalla MD Report Verified Date/Time: 09/25/2019 16:44:46 Reading Location: [facility] C013Y CT Body Reading Room Performing Organization Address City/[facility] [place] one Number [facility] * Phosphorus (09/25/2019 4:22 AM CDT) Only the most recent of 5 results within the time period is included. Phosphorus 2.2 (L) 2.3 - 4.7 mg/dL [facility] Specimen Blood Narrative Performed At Trumpet Player ID - LINDSAY Arellano [facility] Performing Organization Address City/State/Zipcode Ph one Number [facility] [address] [place] [address] MEDICAL CENTER * Limited 2D Echocardiogram (09/24/2019 6:37 PM CDT) Ejection Fraction [facility] ECHO [facility]ART[facility] Specimen Narrative Performed At Transthoracic Echocardiography Report (TTE) [facility] Demographics [facility] Patient NameSARACELI PHILIPPE Date of Study09/24/2019 Gender Male Visit [id number] Race Unknown Room [id number] Number Date of 1955 Zoya lopez Nevarez Age 63 year(s) SonographerNatan joy Interpreting Physician ALEXANDRA Garcia Procedure Type of Study TTE procedure:LIMITED 2D ECHOCARDIOGRAM (Routine) Indications:Shortness of breath and S/P CABG. Clinical History HGB 12.0 HCT 35.7 % ACB X3 09/21/2019, DM, HTN, HLD, CAD Contrast Medium: Definity. Amount - 3 m l Height: 72 inches Weight: 108.86 kg (24 0 lbs) BSA: 2.3 m^2 BMI: 32.55 kg/m^2 HR: 85 bpm BP: 158/81 mmHg Summary Technically difficult due to body habit us. The LV is partially visualized with IV contrast agent on apical views. The distal septum and apex appear akint ic. the other segments have borderline normal systolic function. at least mild to moderately decreased LVEF by qualitative assessment, likely in the range of 40%. Mild concentric LV hypertrophy. Technically limited exam. Signature Findings Left Technically diffic ult due to body habitus. VentricleThe LV is partially vi sualized with IV contrast agent on apical view s. The distal septum and apex appear akintic. the other segments have border line normal systolic function. at least mild to moderately decreased LVEF by qualitative assessment, likely in the rang e of 40%. Mild concen tric LV hypertrophy. Left Atriumindeterminate RightRV is not well vis ualized. Ventricle Right Atrium RA size is indeterminate ( not well seen). Aortic Valve Mild AoV cusp thickening. normal function Mitral Valve Mild MV leaflet thickening . No evidence of mitral regurgitation. TricuspidNot well visualized Valve Pulmonic PV is not well visuali zed. Valve AortaAortic root size ( SInus of Valsalva diameter) is normal . PericardiumNo significant pericardi al effusion is visualized. Chambers/Structures Left Atrium LA Volume: 82.4 ml LA Area: 25.23 cm^2 LA Vol. Index: 36 ml/m^2 Left Ventricle LVIDd: 4.72 cm LVIDs: 2.79 cm LV Septum Diastolic: 1.42 cm LV PW Diastolic: 1.36 cm LV FS: 40.9 % Aorta Ao Root S of Dawn.: 3.14 cm Procedure Note Interface, External Ris In - 09/26/2019 10:34 AM CDT Transthoracic Echocardiography Report (TTE) Demographics Patient Name ARACELI JESSICA Date of Study 09/24/2019 Gender Male Visit Number [id number] Race Unknown Room Number 1042 Number Date of 1955 Referring Physician Kortney Nevarez Age 63 year(s) Desktop Publishing Specialist Natan Peguero Interpreting Jose F Naranjo Physician Procedure Type of Study TTE procedure:LIMITED 2D ECHOCARDIOGRAM (Routine) Indications:Shortness of breath and S/P CABG. Clinical History HGB 12.0 HCT 35.7 % ACB X3 09/21/2019, DM, HTN, HLD, CAD Contrast Medium: Definity. Amount - 3 ml Height: 72 inches Weight: 108.86 kg (240 lbs) BSA: 2.3 m^2 BMI: 32.55 kg/m^2 HR: 85 bpm BP: 158/81 mmHg Summary Technically difficult due to body habitus. The LV is partially visualized with IV contrast agent on apical views. The distal septum and apex appear akintic. the other segments have borderline normal systolic function. at least mild to moderately decreased LVEF by qualitative assessment, likely in the range of 40%. Mild concentric LV hypertrophy. Technically limited exam. Signature Findings Left Technically difficult due to body habitus. Ventricle The LV is partially visualized with IV contrast agent on apical views. The distal septum and apex appear akintic. the other segments have borderline normal systolic function. at least mild to moderately decreased LVEF by qualitative assessment, likely in the range of 40%. Mild concentric LV hypertrophy. Left Atrium indeterminate Right RV is not well visualized. Ventricle Right Atrium RA size is indeterminate (not well seen). Aortic Valve Mild AoV cusp thickening. normal function Mitral Valve Mild MV leaflet thickening. No evidence of mitral regurgitation. Tricuspid Not well visualized Valve Pulmonic PV is not well visualized. Valve Aorta Aortic root size (SInus of Valsalva diameter) is normal . Pericardium No significant pericardial effusion is visualized. Chambers/Structures Left Atrium LA Volume: 82.4 ml LA Area: 25.23 cm^2 LA Vol. Index: 36 ml/m^2 Left Ventricle LVIDd: 4.72 cm LVIDs: 2.79 cm LV Septum Diastolic: 1.42 cm LV PW Diastolic: 1.36 cm LV FS: 40.9 % Aorta Ao Root S of Dawn.: 3.14 cm Performing Organization Address City/State/Zipcode Ph one Number [facility]CHO [facility] * Calcium, Ionized (09/23/2019 11:16 AM CDT) Only the most recent of 7 results within the time period is included. Calcium, Ion 1.09 (L) 1.12 - 1.27 mmol/L [facility] pH, Blood 7.46 [facility] Specimen Blood Narrative Performed At Check serum Ionized Calcium level after 4 hours after IV Calcium replacement. [facility] Performing Organization Address City/[facility] Cent[facility] Ph one Number [place] [address] 0 [phone] [place] [address] * Hemoglobin and hematocrit (09/22/2019 7:36 PM CDT) Only the most recent of 2 results within the time period is included. Hemoglobin 10.9 (L) 13.7 - 17.5 GM/DL [facility] Hematocrit 32.6 (L) 40.1 - 51.0 % [facility] Specimen Blood Narrative Performed At Trumpet Player ID - [id number] [facility] Performing Organization Address City/[facility] one Number [place] [phone] [place] [address] * TRANSFUSION SERVICE REPORT - SCAN (09/22/2019 5:52 PM CDT) Only the most recent of 2 results within the time period is included. Narrative Performed At This result has an attachment that is n ot available. * Lactic Acid, Arterial (09/22/2019 6:27 AM CDT) Only the most recent of 2 results within the time period is included. Lactate, Art 0.8Comment: Specimen 0.5 - 2.2 mmol/L [facility] moderately hemolyzed [facility] Specimen Blood, Arterial Narrative Performed At Trumpet Player ID - DURGA M [facility] Performing Organization Address City/State/Zipcode Ph one Number [place] [address] 0 [phone] [place] [address] * Oxygen saturation, measured (09/22/2019 3:47 AM CDT) Only the most recent of 3 results within the time period is included. O2 Saturation (Measured) 70.6 % [facility] Specimen Blood Performing Organization Address [facility] [place] [facility] [place] Ph one Number [address] [facility] * Blood gas, arterial (09/22/2019 3:47 AM CDT) Only the most recent of 10 results within the time period is included. pH, Arterial 7.38 7.35 - 7.45 [facility] pCO2, Arterial 40 35 - 45 mmHg [facility] pO2, Arterial 129 (H) 80 - 90 mmHg [facility] O2 Sat, Arterial 98.5 (H) 96.0 - 97.0 % [facility] HCO3, Arterial 23 21 - 29 mmol/L [facility] Base Excess, Arterial -2.3 (L) -2.0 - 3.0 mmol/L [facility] Patient Temperature 37.2 C [facility] FIO2 40.0 % [facility] Specimen Blood, Arterial Performing Organization Address [facility] [place] [facility] [place] Ph one Number [address] [facility] * Potassium (09/21/2019 11:01 PM CDT) Only the most recent of 4 results within the time period is included. Potassium 4.6Comment: Specimen slightly 3.5 - 5.1 meq/L [facility] hemolyzed [facility] Specimen Blood Narrative Performed At Trumpet Player ID - PIAYA L [facility] Performing Organization Address [facility] [place] [facility] [place] Ph one Number [address] [facility] * Prepare RBC (09/21/2019 8:03 PM CDT) CROSSMATCH COMPATIBLE SAFETRACE TX Unit ABO O Pos SAFETRACE TX UNIT NUMBER [id number] SAFETRACE TX Status RETURNED FROM ISSUE SAFETRACE TX Blood Bank Product RED BLOOD CELLS SAFETRACE TX PRODUCT CODE [id number] SAFETRACE TX CROSSMATCH COMPATIBLE SAFETRACE TX Unit ABO O Pos SAFETRACE TX UNIT NUMBER [id number] SAFETRACE TX Status RETURNED FROM ISSUE SAFETRACE TX Blood Bank Product RED BLOOD CELLS SAFETRACE TX PRODUCT CODE [id number] SAFETRACE TX CROSSMATCH COMPATIBLE SAFETRACE TX Unit ABO O Pos SAFETRACE TX UNIT NUMBER [id number] SAFETRACE TX Status RETURNED FROM ISSUE SAFETRACE TX Blood Bank Product RED BLOOD CELLS SAFETRACE TX PRODUCT CODE [id number] SAFETRACE TX CROSSMATCH COMPATIBLE SAFETRACE TX Unit ABO O Pos SAFETRACE TX UNIT NUMBER [id number] SAFETRACE TX Status RETURNED FROM ISSUE SAFETRACE TX Blood Bank Product RED BLOOD CELLS SAFETRACE TX PRODUCT CODE [id number] SAFETRACE [place] Performing Organization Address [facility] one Number [place] * Potassium-Stat Lab (09/21/2019 7:51 PM CDT) Only the most recent of 7 results within the time period is included. Potassium 4.2 3.6 - 5.5 meq/L [facility] Specimen Blood, Arterial Performing Organization Address [facility] one Number [address] 0 [phone] [place] [address] * Sodium Na-Stat Lab (09/21/2019 7:51 PM CDT) Only the most recent of 7 results within the time period is included. Sodium 135 (L) 136 - 145 meq/L [facility] Specimen Blood, Arterial Performing Organization Address [facility] one Number [address] [facility] * Glucose-Stat Lab (09/21/2019 7:51 PM CDT) Only the most recent of 7 results within the time period is included. Glucose 139 (H) 70 - 110 mg/dL [facility] Specimen Blood, Arterial Performing Organization Address City/[facility] one Number [address] [facility] * HGB/HCT (H&H)-Stat Lab (09/21/2019 7:51 PM CDT) Only the most recent of 7 results within the time period is included. Hemoglobin 12.6 (L) 13.0 - 16.8 g/dL [facility] Hematocrit 37.0 (L) 40.0 - 50.0 % [facility] Specimen Blood, Arterial Performing Organization Address [facility] one Number [place] [address] [facility] * Prothrombin time/INR (09/21/2019 4:37 PM CDT) Only the most recent of 2 results within the time period is included. Protime 17.1 (H) 11.9 - 14.2 seconds [facility] INR 1.4 <=5.9 [facility] Specimen Blood Narrative Performed At Effective 09/16/2018: PT Reference Range Change [facility] New: 11.9-14.2Previous: 11.7-14.7 [facility] MED[facility] CE NTER RECOMMENDED COUMADIN/WARFARIN INR THERA PY RANGES STANDARD DOSE: 2.0-3.0Includes: PRO PHYLAXIS for venous thrombosis, systemic embolization; TREATMENT for venous thro mbosis and/or pulmonary embolus. HIGH RISK: Target INR is 2.5-3.5 for pa tients wiht mechanical heart valves. Performing Organization Address [facility] one Number [address] [facility] * Comprehensive metabolic panel (09/21/2019 4:18 PM CDT) Protein, Total 5.3 (L)Comment: Specimen 6.0 - 8.3 gm/dL [facility] Albumin 3.5Comment: Specimen slightly 3.5 - 5.0 g/dL [facility] Alkaline Phosphatase 63 40 - 150 U/L [facility] Total Bilirubin 1.5 (H)Comment: Specimen 0.2 - 1.2 mg/dL [facility] hemolyzed [facility] Sodium 140 136 - 145 meq/L [facility] Potassium 4.4Comment: Specimen slightly 3.5 - 5.1 meq/L [facility] Chloride 110 (H) 98 - 107 meq/L [facility] CO2 20 (L) 22 - 29 meq/L [facility] BUN 10 7 - 21 mg/dL [facility] Creatinine 0.61Comment: Specimen slightly 0.57 - 1.25 mg/ dL [facility] Glucose 151 (H) 70 - 105 mg/dL [facility] Calcium 8.1 (L) 8.4 - 10.2 mg/dL [facility] AST 40 (H)Comment: Specimen 5 - 34 U/L [facility] hemolyzed [facility] ALT 18Comment: Specimen slightly 6 - 55 U/L C [facility] EGFR 134Comment: ESTIMATED GFR IS mL/min/1.73 sq m [facility] NOT ACCURATE CREATININE [facility] CLEARANCE IN PREDICTING GLOMERULAR FILTRATION RATE. ESTIMATED GFR IS NOT APPLICABLE FOR DIALYSIS PATIENTS. Specimen Blood Narrative Performed At Trumpet Player ID - [id number] [facility] Performing Organization Address City/State/Zipcode Ph one Number [facility] [address] 7[address] [facility] * POC ACTIVATED CLOTTING TIME (09/21/2019 2:39 PM CDT) Only the most recent of 6 results within the time period is included. Activated Clotting Time 109Comment: : 74-137 seconds, sec [facility] Baseline: TESTED AT [address], [id number]: Trumpet Player/Pbx Teacher ID = [id number] for ZACK ANDRADE Specimen Blood Performing Organization Address City/State/[facility] Ph one Number [address] 7[address] [facility] * MARIAM (09/21/2019 10:19 AM CDT) Narrative Performed At Parker Stafford MD 0203:12 PM MARIAM Date: 09/21/2019 10:19 AM Sex: Male Locat ion: OR Requesting Physician: Janine Campbell MD Examiner: Silvio Badillo MD Indication: ACBIntubatedSedated Patient screened for esoph disease: Yes Insertion: easy Probe Type: multiplane Modalities: 2D, CFM, CWD and PWD Pre Intervention Summary: 63 yo M prese nting for ACB with Dr. Campbell. Aorta: no aneurysm, no dissection, no m obile plaques AV: trileaflet morphology, no aortic st enosis, however restricted RCC movement, no aortic regurgitation LV: Mildly enlarged chamber size (LVIDd 5.8cm), No LVH, low normal systolic function (EF 48% by Jacobs's) , inferoseptal wall hypokinesis, no thrombus MV: normal morphology, no mitral regurg itation, no mitral stenosis LA: no CHAMP thrombus, normal size and fu nction PV: limited visualization RV: normal sized chamber, normal functi on (TAPSE 2.4cm), no thrombus TV: normal morphology, trace tricuspid regurgitation RA: no thrombus Small PFO by color dopper flow All findings communicated to surgical t eam. Post Intervention Summary:S/p ACBx3 Aorta: No aneurysm, no dissection, no m obile plaques. AV: Stable LV: Normal chamber size , no LVH, hayder l systolic function mildly improved (EF 55% by qualitative assessment), inf eroseptal wall hypokinesis, no thrombus MV: normal morphology, mild mitral regu rgitation, no mitral stenosis LA: no CHAMP thrombus, normal size and fu nction PV: limited visualization RV: normal sized chamber, normal functi on, no thrombus TV: normal morphology, trace tricuspid regurgitation RA: no thrombus No PFO by color dopper flow No evidence of GARY. No aortic injury after decannulation. All findings communicated to surgical t eam. Procedure Note Parker Stafford MD - 09/21/2019 10:19 AM CDT MARIAM Date: 09/21/2019 10:19 AM Sex: Male Location: OR Requesting Physician: Janine Campbell MD Examiner: Silvio Badillo MD Indication: ACB Intubated Sedated Patient screened for esoph disease: Yes Insertion: easy Probe Type: multiplane Modalities: 2D, CFM, CWD and PWD Pre Intervention Summary: 63 yo M presenting for ACB with Dr. Campbell. Aorta: no aneurysm, no dissection, no mobile plaques AV: trileaflet morphology, no aortic stenosis, however restricted RCC movement, no aortic regurgitation LV: Mildly enlarged chamber size (LVIDd 5.8cm), No LVH, low normal systolic function (EF 48% by Jacobs's), inferoseptal wall hypokinesis, no thrombus MV: normal morphology, no mitral regurgitation, no mitral stenosis LA: no CHAMP thrombus, normal size and function PV: limited visualization RV: normal sized chamber, normal function (TAPSE 2.4cm), no thrombus TV: normal morphology, trace tricuspid regurgitation RA: no thrombus Small PFO by color dopper flow All findings communicated to surgical team. Post Intervention Summary: S/p ACBx3 Aorta: No aneurysm, no dissection, no mobile plaques. AV: Stable LV: Normal chamber size , no LVH, normal systolic function mildly improved (EF 55% by qualitative assessment), inferoseptal wall hypokinesis, no thrombus MV: normal morphology, mild mitral regurgitation, no mitral stenosis LA: no CHAMP thrombus, normal size and function PV: limited visualization RV: normal sized chamber, normal function, no thrombus TV: normal morphology, trace tricuspid regurgitation RA: no thrombus No PFO by color dopper flow No evidence of AGRY. No aortic injury after decannulation. All findings communicated to surgical team. * Platelet Aggregation: Function Screen (09/21/2019 6:44 AM CDT) Only the most recent of 4 results within the time period is included. Pathologist: Valeriy Heredia M.D. (electonic [facility] signature) [facility] Platelets 166 150 - 450 K/CU [facility] ADP 83 62 - 100 % [facility] Platelet Rich Plasma 285 200 - 300 k/cu mm [facility] Plt. Function Screen Normal aggregation results [facility] Interpretation with ADP. No evidence of [facility] platelet dysfunction or P2Y12 inhibitor effect. Specimen Blood Narrative Performed At Platelet Function Screen results may be falsely low w ith platelet counts [facility] <75,000/cu mm. [facility] Trumpet Player ID - [id number] Performing Organization Address [facility] [place] [address] [facility] * aPTT (09/21/2019 6:44 AM CDT) Only the most recent of 11 results within the time period is included. PTT 88.8 (H) 22.5 - 36.0 seconds [facility] Specimen Blood Performing Organization Address City/[facility] [place] one [address] 7[address] [facility] * ABORH, manual (09/20/2019 4:38 PM CDT) ABO Grouping O [facility] Rh Factor POS [facility] Specimen Blood Performing Organization Address [facility] Ph one [address] [address] [facility] * Type and screen, automated (09/20/2019 3:09 PM CDT) ABO/RH AUTOMATED (BEAKER) O POSITIVE [facility] Ab Scrn NEGATIVE [facility] Specimen Blood Performing Organization Address [facility] one Number [address] [address] [facility] * Hemoglobin A1c (09/20/2019 6:47 AM CDT) Only the most recent of 2 results within the time period is included. Hemoglobin A1C 8.4 (H) 4.3 - 6.1 % [facility] Specimen Blood Performing Organization Address [facility] one Number [place] [phone] * Lipid panel (09/20/2019 6:47 AM CDT) Only the most recent of 2 results within the time period is included. Triglycerides 195 mg/dL [facility] Cholesterol 143 mg/dL [facility] HDL 36 mg/dL [facility] LDL Calculated 68 mg/dL [facility] Specimen Blood Narrative Performed At Triglyceride Reference Range: [facility] Low Risk <150 [facility] [id number] High Risk 200-499 Very High Risk>=500 Cholesterol Reference Range: Low Risk <200 [id number] High Risk>240 HDL Cholesterol Reference Range: Low Risk >=60 High Risk <40 LDL Cholesterol Reference Range: Optimal<100 Near [id number] [id number] Cmgv118-641 Very High >=190 Trumpet Player ID - [id number] Performing Organization Address [facility] one Number [place] [phone] * Vein Mapping Legs Bilateral (09/19/2019 5:06 AM CDT) Ejection Fraction [facility]ART[facility] MKCKESSON CPACS Specimen Impressions Performed At Right Impression [facility] 1. There is no deep venous venous obstruction in the profunda femoral, MKCKESSON CPACS femoral, posterior tibial or peroneal v eins. 2. The common femoral and popliteal vei ns are not visualized due to IABP placement. 3. There is no superficial venous obstr uction in the great saphenous vein where visualized. Left Impression 1. There is no deep venous obstruction in the common femoral, profunda femoral, femoral, popliteal, posterior tibial or peroneal veins. 2. There is no superficial venous obstr uction in the great saphenous vein. Conclusions Summary Venous duplex imaging and compression o f the bilateral lower extremities was performed. The veins were adequatel y visualized except as stated above. The bilateral venous systems wer e patent and compressible with no evidence of thrombus. Superficial venous measurements are doc umented below. Signature Velocities are measured in cm/s ; Diame ters are measured in cm LE Vein Mapping Superficial - Great Saphenous Vein Right Left + + + +----- + + +----- + !Location ! !Diameter!Depth ! !Diameter!Depth ! + + + +----- + + +----- + !Sapheno Femoral Junction ! !0.24! ! !0.48! ! + + + +----- + + +----- + !GSV High Thigh ! !0.4 ! ! !0.32! ! + + + +----- + + +----- + !GSV Mid Thigh ! !0.44! ! !0.27! ! + + + +----- + + +----- + !GSV Low Thigh ! !0.36! ! !0.3 ! ! + + + +----- + + +----- + !GSV Knee ! !0.31! ! !0.28! ! + + + +----- + + +----- + !GSV High Calf ! !0.33! ! !0.32! ! + + + +----- + + +----- + !GSV Mid Calf ! !0.39! ! !0.29! ! + + + +----- + + +----- + !GSV Low Calf ! !0.46! ! !0.34! ! + + + +----- + + +----- + !GSV Ankle ! !0.46 ! ! + + + +--------- + Narrative Performed At PV LAB - Lower Extremities Vein Mapping [facility] Patient ARACELI Espino Date of Study 09/19/2019 63 Visit [id number] maría elena Date of 1955 Referring Donny Saravia telRoom Number 4560 Physician Desktop Publishing Specialist Zaida Blackwell [facility] DIONI lucas Physician Procedure Type of Study: Veins: Lower Extremity Vein Mapping, VE IN MAPPING, LOWER EXTREMITY, BILATERAL. Indications for Study:Pre ACB. Patient Status:Routine. Study Location:Portable. Technical Quality:Adequate visualizatio n. Risk Factors History of Disease + +---- ------+ + !Diagnosis!Date!Comm ents ! + +---- ------+ + !History/Risk Factors:!09/19/2019!CAD ! ! !!IABP via RT groin ! + +---- ------+ + Procedure Note Interface, External Ris In - 09/19/2019 11:08 AM CDT [facility] - Lower Extremities Vein Mapping Demographics Patient Name ARACELI JESSICA Date of Study 09/19/2019 Age 63 Visit Number [id number] Gender Male Accession Number [id number] Date of 1955 Referring Donny Bautista Room Number 6219 Physician Desktop Publishing Specialist Zaida Blackwell Interpreting Janine Campbell, RVT Physician Procedure Type of Study: Veins: Lower Extremity Vein Mapping, VEIN MAPPING, LOWER EXTREMITY, BILATERAL. Indications for Study:Pre ACB. Patient Status:Routine. Study Location:Portable. Technical Quality:Adequate visualization. Risk Factors History of Disease + +----- -----+ + !Diagnosis !Date !Comments ! + +----- -----+ + !History/Risk Factors: !09/19/2019!CAD ! ! ! !IABP via RT groin ! + +----- -----+ + Impressions Right Impression 1. There is no deep venous venous obstru ction in the profunda femoral, femoral, posterior tibial or peroneal veins. 2. The common femoral and popliteal vein s are not visualized due to IABP placement. 3. There is no superficial venous obstru ction in the great saphenous vein where visualized. Left Impression 1. There is no deep venous obstruction i n the common femoral, profunda femoral, femoral, popliteal, posterior tibial or peroneal veins. 2. There is no superficial venous obstru ction in the great saphenous vein. Conclusions Summary Venous duplex imaging and compression of the bilateral lower extremities was performed. The veins were adequately visualized except as stated above. The bilateral venous systems were patent and compressible with no evidence of thrombus. Superficial venous measurements are documented below. Signature Velocities are measured in cm/s ; Diameters are measured in cm LE Vein Mapping Superficial - Great Saphenous Vein Right Left + + + + + + + + !Location ! !Diameter !Depth ! !Diameter !Depth ! + + + + + + + + !Sapheno Femoral Junction ! !0.24 ! ! !0.48 ! ! + + + + + + + + !GSV High Thigh ! !0.4 ! ! !0.32 ! ! + + + + + + + + !GSV Mid Thigh ! !0.44 ! ! !0.27 ! ! + + + + + + + + !GSV Low Thigh ! !0.36 ! ! !0.3 ! ! + + + + + + + + !GSV Knee ! !0.31 ! ! !0.28 ! ! + + + + + + + + !GSV High Calf ! !0.33 ! ! !0.32 ! ! + + + + + + + + !GSV Mid Calf ! !0.39 ! ! !0.29 ! ! + + + + + + + + !GSV Low Calf ! !0.46 ! ! !0.34 ! ! + + + + + + + + !GSV Ankle ! !0.46 ! ! + + + + + Performing Organization Address City/State/Zipcode Ph one Number [facility] * Carotid Doppler Bilateral (09/19/2019 4:48 AM CDT) Ejection Fraction [facility]ACS Specimen Impressions Performed At Right Impression [facility] 1. There is <50% diameter reduction (approximately 19 .8% by 2-D measurement) MKCKALEKSANDRON CPACS in the internal carotid artery with a p eak velocity of 58/11 cm/sec and heterogeneous plaque. 2. There is non-occluding plaque in the external carotid artery. 3. There is non-occluding plaque in the common carotid artery. 4. The vertebral artery is not visualiz ed. 5. The subclavian artery is within norm al limits where visualized. Left Impression 1. There is <50% diameter reduction (ap proximately 19.4% by 2-D measurement) in the internal carotid artery with a p eak velocity of 47/25 cm/sec and heterogeneous plaque. 2. There is non-occluding plaque in the external carotid artery. 3. There is non-occluding plaque in the common carotid artery. 4. The vertebral artery flow is antegra de . 5. The subclavian artery is within norm al limits where visualized. Conclusions Summary Carotid duplex scanning and color flow imaging were performed bilaterally. The arteries were adequately visualized . The bilateral internal carotid arteries had <50% hemodynamically insig nificant stenosis (approximately 19.8% by 2-D measurement on the right, approximately 19.4% by 2-D measurement on the left) with heterogen eous plaque. The vertebral artery flow was not visualized on the right an d antegrade on the left. The subclavian arteries were patent with no rmal flow bilaterally where visualized. The waveforms were consiste nt with IABP support. Signature Velocities are measured in cm/s ; Diame ters are measured in cm Carotid Right Measurements + +----+----+-----+------ ------+ + + !Location !PSV !EDV !Angle! %Stenosis 2D!%Stenosis Doppler!Tortuosity ! + +----+----+-----+------ ------+ + + !Prox CCA !45.2!!60 !! ! ! + +----+----+-----+------ ------+ + + !Dist CCA !40.8!15.2!60 !! ! ! + +----+----+-----+------ ------+ + + !Prox ICA !58.5!11.3!60 !19.8% !<50% ! ! + +----+----+-----+------ ------+ + + !Dist ICA !54.1!24.6!60 !! ! ! + +----+----+-----+------ ------+ + + !Prox ECA !71.3!21.6!60 !! ! ! + +----+----+-----+------ ------+ + + !Prox Subclavian!50.1!!60 !! ! ! + +----+----+-----+------ ------+ + + - There is antegrade vertebral flow noted on the right side. - Additional Measurements:ICAPSV/CC APSV 1.43. Carotid Left Measurements + +----+----+-----+------ ------+ + + !Location !PSV !EDV !Angle! %Stenosis 2D!%Stenosis Doppler!Tortuosity ! + +----+----+-----+------ ------+ + + !Prox CCA !69.8!22.6!60 !! ! ! + +----+----+-----+------ ------+ + + !Dist CCA !58!26.5!60 !! ! ! + +----+----+-----+------ ------+ + + !Prox ICA !47.2!25.6!60 !19.4% !<50% ! ! + +----+----+-----+------ ------+ + + !Dist ICA !65.9!40.3!60 !! ! ! + +----+----+-----+------ ------+ + + !Prox ECA !60!23.1!60 !! ! ! + +----+----+-----+------ ------+ + + !Vertebral!34.9!15.2!60 !! ! ! + +----+----+-----+------ ------+ + + !Prox Subclavian!68.3!!60 !! ! ! + +----+----+-----+------ ------+ + + - There is antegrade vertebral flow noted on the left side. - Additional Measurements:ICAPSV/CC APSV 1.14.ICAEDV/CCAEDV 1.78. Narrative Performed At LAB - Carotid Duplex Study [facility] Demographics [facility] Patient ARACELI Espino Date of Study 09/19/2019 63 Visit [id number] Date of 1955 Referring Donny Saravia telRoom Number 6219 Physician Desktop Publishing Specialist Zaida Blackwell [facility] shayy Nidia Physician MD Procedure Type of Study: Cerebral: Carotid, CAROTID DOPPLER, XAVIER ATERAL. Indications for Study:Preop ACB. Patient Status:TODAY. Study Location:Portable. Technical Quality:Adequate visualizatio n. Risk Factors History of Disease + +---- ------+ + !Diagnosis!Date!Comm ents ! + +---- ------+ + !History/Risk Factors:!09/19/2019!CAD ! ! !!IABP via RT groin ! + +---- ------+ + Procedure Note Interface, External Ris In - 09/19/2019 11:08 AM CDT [facility] LAB - Carotid Duplex Study Demographics Patient Name ARACELI JESSICA Date of Study 09/19/2019 Age 63 Visit Number [id number] Gender Male Accession Number [id number] Date of 1955 Referring Donny Bautista Room Number 6219 Physician Desktop Publishing Specialist Zaida Blackwell Interpreting Janine Campbell, T Physician Procedure Type of Study: Cerebral: Carotid, CAROTID DOPPLER, BILATERAL. Indications for Study:Preop ACB. Patient Status:TODAY. Study Location:Portable. Technical Quality:Adequate visualization. Risk Factors History of Disease + +----- -----+ + !Diagnosis !Date !Comments ! + +----- -----+ + !History/Risk Factors: !09/19/2019!CAD ! ! ! !IABP via RT groin ! + +----- -----+ + Impressions Right Impression 1. There is <50% diameter reduction (evans roximately 19.8% by 2-D measurement) in the internal carotid artery with a peak velocity of 58/11 cm/sec and heterogeneous plaque. 2. There is non-occluding plaque in the external carotid artery. 3. There is non-occluding plaque in the common carotid artery. 4. The vertebral artery is not visualize d. 5. The subclavian artery is within hayder l limits where visualized. Left Impression 1. There is <50% diameter reduction (evans roximately 19.4% by 2-D measurement) in the internal carotid artery with a peak velocity of 47/25 cm/sec and heterogeneous plaque. 2. There is non-occluding plaque in the external carotid artery. 3. There is non-occluding plaque in the common carotid artery. 4. The vertebral artery flow is antegrad e . 5. The subclavian artery is within hayder l limits where visualized. Conclusions Summary Carotid duplex scanning and color flow imaging were performed bilaterally. The arteries were adequately visualized. The bilateral internal carotid arteries had <50% hemodynamically insignificant stenosis (approximately 19.8% by 2-D measurement on the right, approximately 19.4% by 2-D measurement on the left) with heterogeneous plaque. The vertebral artery flow was not visualized on the right and antegrade on the left. The subclavian arteries were patent with normal flow bilaterally where visualized. The waveforms were consistent with IABP support. Signature Velocities are measured in cm/s ; Diameters are measured in cm Carotid Right Measurements + +----+----+-----+------- -----+ + + !Location !PSV !EDV !Angle!%Stenosis 2D!%Stenosis Doppler!Tortuosity ! + +----+----+-----+------- -----+ + + !Prox CCA !45.2! !60 ! ! ! ! + +----+----+-----+------- -----+ + + !Dist CCA !40.8!15.2!60 ! ! ! ! + +----+----+-----+------- -----+ + + !Prox ICA !58.5!11.3!60 !19.8% !<50% ! ! + +----+----+-----+------- -----+ + + !Dist ICA !54.1!24.6!60 ! ! ! ! + +----+----+-----+------- -----+ + + !Prox ECA !71.3!21.6!60 ! ! ! ! + +----+----+-----+------- -----+ + + !Prox Subclavian!50.1! !60 ! ! ! ! + +----+----+-----+------- -----+ + + - There is antegrade vertebral flow noted on the right side. - Additional Measurements:ICAPSV/CCAPSV 1.43. Carotid Left Measurements + +----+----+-----+------- -----+ + + !Location !PSV !EDV !Angle!%Stenosis 2D!%Stenosis Doppler!Tortuosity ! + +----+----+-----+------- -----+ + + !Prox CCA !69.8!22.6!60 ! ! ! ! + +----+----+-----+------- -----+ + + !Dist CCA !58 !26.5!60 ! ! ! ! + +----+----+-----+------- -----+ + + !Prox ICA !47.2!25.6!60 !19.4% !<50% ! ! + +----+----+-----+------- -----+ + + !Dist ICA !65.9!40.3!60 ! ! ! ! + +----+----+-----+------- -----+ + + !Prox ECA !60 !23.1!60 ! ! ! ! + +----+----+-----+------- -----+ + + !Vertebral !34.9!15.2!60 ! ! ! ! + +----+----+-----+------- -----+ + + !Prox Subclavian!68.3! !60 ! ! ! ! + +----+----+-----+------- -----+ + + - There is antegrade vertebral flow noted on the left side. - Additional Measurements:ICAPSV/CCAPSV 1.14.ICAEDV/CCAEDV 1.78. Performing Organization Address City/State/Zipcode Ph one Number [facility] * 2D Echo W/Doppler(CW/PW/Color) (09/18/2019 11:51 AM CDT) Ejection Fraction [facility] Specimen Narrative Performed At Transthoracic Echocardiography Report (TTE) [facility] ECH O HEARTLAB Demographics LinkStorm [facility] Patient NameSARACELI PHILIPPE CD ate of Study09/18/2019 Male Visit [id number] Race Unknown Room [id number] Number Date of 1955 Referring PhysicianRomeo Pollock Age 63 year(s)Desktop Publishing Specialist Deshaun Muñoz Aerospace Project Engineer Siva Hanna Interpreting Royce Segovia MD Procedure Type of Study TTE procedure:2DECHO W DO PPLER(CW/PW/COLOR) (STAT) Indications:CAD and Pre-op. Clinical History HGB 16.6 HCT 47.9 % DM HTN HLD CAD Contrast Medium: Definity. Height: 72 inches Weight: 105.69 kg (23 3 lbs) BSA: 2.27 m^2 BMI: 31.6 kg/m^2 HR: 66 bpm BP: 106/84 mmHg Summary The left ventricle is chamber size (by PSLAX dimension) is normal (male - LVIDd 4.2-5.8cm) . The following segmen t(s) appear akinetic: distal inferior . The following segment(s) evans ear mildly hypokinetic: basal-mid inferior . LVEF by Jacobs's method of disk assessment is mildly reduced (45-49%) . AoV area at rest by continuity equation is in the range of 2.01 cm2. Unable to estimate peak systolic PA pre ssure; inadequate TR velocity signal. Previous Study No prior exam available for comparison. Signature Findings Technical Quality: Technically adequate exam. Left Ventricle The left ventricle is chamber size (by PSLAX dimension) is normal (male - LVIDd 4.2-5.8cm) . Normal LV wall thickness. The following segment(s) appear akinetic: distal inferior . The following segment(s) appear mildly hypokinetic: basal-mid inferior . Global LV systolic function mildly reduced . LVEF by Jacobs's method of disk assessment is mildly reduced (45-49%) . The LVEF was measured using Jacobs's bi-plane method of disk . LV endocardium is adequately visualized with IV ultrasound enhancing agent. Left AtriumLA s ize is mildly enlarged (35-41 ml/m2) . Right VentricleRV chamb er size is mildly enlarged . Global RV systolic function is normal . Right Atrium RA cav ity size is normal . Aortic Valve Mild A oV cusp calcification. AoV area at rest by continuity equation is in the range of 2.01 cm2. Mitral Valve Mild m itral annular calcification. Mild MV leaflet thickening. Tricuspid ValveUnable t o estimate peak systolic PA pressure; inadequate TR velocity signal. Pulmonic Valve Normal P V structure and function. Aorta Aortic root size (SInus of Valsalva diameter) is normal . Proximal ascending aorta size mildly dilated . 4 cm PericardiumNo s ignificant pericardial effusion is visualized. IVC/SVC/PA/PV/PleuralThe estimated RA pressure by IVC dynamics 5-10mmHg . Chambers/Structures Left Atrium LA Volume: 79.36 ml LA Area: 23.79 cm^2 LA Vol. Index: 35 ml/m^2 Left Ventricle LVIDd: 5.3 cm LV Septum Diastolic: 0.92 cm LV PW Diastolic: 0.86 cm LVEDV Jacobs's:120.54 ml LVESV Jacobs's:63.49 ml LVEF Jacobs's: 47.3 % LVEDVI: 53 ml/m^2 LVESVI: 28 ml/m^2 LVOT Diameter: 2.24 cm Right Atrium RA Vol. (Sngl Plane): 53.38 ml Right Ventricle TAPSE: 2.01 cm Aorta Ao Root S of Dawn.: 3.08 cm Ascending Aorta: 4.02 cm Doppler/Quantitative Measurements Mitral Valve MV Peak E-Wave: 0.6 m/s MV Peak A-Wave: 0.71 m/s E/A Ratio: 0.84 Peak Gradient: 1.42 mmHg Deceleration Time: 260.9 msec MV Abelardo. Peak: Tissue Doppler E' Septal Velocity: 0.05 m/s E/E': 12.59 E' Lateral Velocity: 0.09 m/s Aortic Valve Peak Velocity: 1.96 m/s Mean Velocity: 1.28 m/s Peak Gradient: 15.42 mmHg Mean Gradient: 7.74 mmHg AV Area (continuity): 2.01 cm^2 Area (2D): 2.05 cm^2 AV VTI: 37.65 cm AV DVI: 0.51 LVOT Peak Velocity: 1.08 m/s Peak Gradient: 4.68 mmHg Mean Velocity: 0.66 m/s Mean Gradient: 2.15 mmHg LVOT Diameter: 2.24 cm LVOT VTI: 19.2 cm LVOT Area: 3.94 cm^2 LVOT SV:75.63 ml LVOT CO: 4.99 l/min LVOT CI: 2.2 l/min/m^2 Procedure Note Interface, External Ris In - 09/18/2019 3:15 PM CDT Transthoracic Echocardiography Report (TTE) Demographics Patient Name ARACELI JESSICA Date of Study 09/18/2019 Gender Male Visit Number [id number] Race Unknown Room Number 6219 Number Date of 1955 Referring Physician Romeo Araceli Nessly Age 63 year(s) Desktop Publishing Specialist Deshaun Wanda [employer] Project Engineer Siva Hanna Interpreting Franklyn Segovia Physician Procedure Type of Study TTE procedure:2DECHO W DOPPLER(CW/PW/COLOR) (STAT) Indications:CAD and Pre-op. Clinical History HGB 16.6 HCT 47.9 % DM HTN HLD CAD Contrast Medium: Definity. Height: 72 inches Weight: 105.69 kg (233 lbs) BSA: 2.27 m^2 BMI: 31.6 kg/m^2 HR: 66 bpm BP: 106/84 mmHg Summary The left ventricle is chamber size (by PSLAX dimension) is normal (male - LVIDd 4.2-5.8cm) . The following segment(s) appear akinetic: distal inferior . The following segment(s) appear mildly hypokinetic: basal-mid inferior . LVEF by Jacobs's method of disk assessment is mildly reduced (45-49%) . AoV area at rest by continuity equation is in the range of 2.01 cm2. Unable to estimate peak systolic PA pressure; inadequate TR velocity signal. Previous Study No prior exam available for comparison. Signature Findings Technical Quality: Technically adequate exam. Left Ventricle The left ventricle is chamber size (by PSLAX dimension) is normal (male - LVIDd 4.2-5.8cm) . Normal LV wall thickness. The following segment(s) appear akinetic: distal inferior . The following segment(s) appear mildly hypokinetic: basal-mid inferior . Global LV systolic function mildly reduced . LVEF by Jacobs's method of disk assessment is mildly reduced (45-49%) . The LVEF was measured using Jacobs's bi-plane method of disk . LV endocardium is adequately visualized with IV ultrasound enhancing agent. Left Atrium LA size is mildly enlarged (35-41 ml/m2) . Right Ventricle RV chamber size is mildly enlarged . Global RV systolic function is normal . Right Atrium RA cavity size is normal . Aortic Valve Mild AoV cusp calcification. AoV area at rest by continuity equation is in the range of 2.01 cm2. Mitral Valve Mild mitral annular calcification. Mild MV leaflet thickening. Tricuspid Valve Unable to estimate peak systolic PA pressure; inadequate TR velocity signal. Pulmonic Valve Normal PV structure and function. Aorta Aortic root size (SInus of Valsalva diameter) is normal . Proximal ascending aorta size mildly dilated . 4 cm Pericardium No significant pericardial effusion is visualized. IVC/SVC/PA/PV/Pleural The estimated RA pressure by IVC dynamics 5-10mmHg . Chambers/Structures Left Atrium LA Volume: 79.36 ml LA Area: 23.79 cm^2 LA Vol. Index: 35 ml/m^2 Left Ventricle LVIDd: 5.3 cm LV Septum Diastolic: 0.92 cm LV PW Diastolic: 0.86 cm LVEDV Jacobs's:120.54 ml LVESV Jacobs's:63.49 ml LVEF Jacobs's: 47.3 % LVEDVI: 53 ml/m^2 LVESVI: 28 ml/m^2 LVOT Diameter: 2.24 cm Right Atrium RA Vol. (Sngl Plane): 53.38 ml Right Ventricle TAPSE: 2.01 cm Aorta Ao Root S of Dawn.: 3.08 cm Ascending Aorta: 4.02 cm Doppler/Quantitative Measurements Mitral Valve MV Peak E-Wave: 0.6 m/s MV Peak A-Wave: 0.71 m/s E/A Ratio: 0.84 Peak Gradient: 1.42 mmHg Deceleration Time: 260.9 msec MV Abelardo. Peak: Tissue Doppler E' Septal Velocity: 0.05 m/s E/E': 12.59 E' Lateral Velocity: 0.09 m/s Aortic Valve Peak Velocity: 1.96 m/s Mean Velocity: 1.28 m/s Peak Gradient: 15.42 mmHg Mean Gradient: 7.74 mmHg AV Area (continuity): 2.01 cm^2 Area (2D): 2.05 cm^2 AV VTI: 37.65 cm AV DVI: 0.51 LVOT Peak Velocity: 1.08 m/s Peak Gradient: 4.68 mmHg Mean Velocity: 0.66 m/s Mean Gradient: 2.15 mmHg LVOT Diameter: 2.24 cm LVOT VTI: 19.2 cm LVOT Area: 3.94 cm^2 LVOT SV:75.63 ml LVOT CO: 4.99 l/min LVOT CI: 2.2 l/min/m^2 Performing Organization Address [facility] one Number [facility] MKCKESSON CPACS * TSH/Free T4 If Indicated (09/18/2019 2:43 AM CDT) TSH 0.736 0.350 - 4.940 uIU/mL [facility] Specimen Blood Narrative Performed At [employer] - [facility] Performing Organization Address [facility] Ph one Number [facility] [address] [place] [address] [phone] [facility] after 01/16/2019 Insurance Payer Benefit Subscriber ID Type Phone Address Plan / Group BLUE CROSS/[employer]UE [employer] BCBS OS xxxxxxxxxxxxxxx PPO [address] POS/PPO/[place] [address] O CDC REVIEW CDC REVIEW xxxxxxxx [place] [phone] Advance Directives For more information, please contact: [address] [address] Date Inactivated Comments Code Status Date Activated 10/09/2019 1:29 AM Full Code 10/07/2019 2:29 PM This code status was determined by: Patient 09/26/2019 3:50 PM Full Code 09/20/2019 2:55 PM This code status was determined by: Patient
--- OUTSIDE RECORDS SUMMARY | 2020-01-17 21:37 | XMS REPORT | Continuity of Care Document ---
Author Author [facility] t Organization [facility] t Address 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 Name Role Phone DO PRACHI RUIZ PCP Nidia ESTEBAN Attphys Unavailable PRACHI RUIZ Attphys Unavailable uHgo LOPEZ, Kim Attphys Ramy Perez MD Attphys Lebron MORRIS, Nikolay Blum Attphys Lokesh MORRIS, Aroldo Ashton Attphys RAMY PEREZ Attphys Unavailable Adrian MORRIS, Nancie Mehta Attphys [phone] Ann Walters MD Attphys [phone] Geri West MD Attphys Olayinka Sanchez Attphys ANN WALTERS Attphys Unavailable NIKOLAY DIANA Admphys Unavailable Geri WEST Admphys Unavailable Payers Payer Name Policy Type Policy Number Effective Date Expiration Date S ana BCBSBCBS OUT OF [id number] 2019 00:00:00 [employer] [employer] BLUE CROSS/BLUE SHIELDBCBS OS POS/PPO/EP [id number] [id number], [place] [address] xxxxxxxxxxxxxxx [facility] CDC REVIEWCDC [place]VIEWxxxxxxxx[place] [address] x xxxxxxx [facility] Blue Cross Of Pr Ppo NA [facility] Cdc Review Covid19 NA [facility] Problems Condition Name Condition Details Condition Category Status Onset Date Resolution Date Last Treatment Date Treating Clinician Comments Source Atrial flutter Atrial flutter Disease Active 2019-10-07 00:00:00 [facility] s/p ACB x3 09/21/19 s/p ACB x3 09/21/19 Disease Active 2019-09-22 00:00:00 [facility] 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 edical [place] Acute blood loss anemia Acute blood loss anemia Disease Active [facility] Thrombocytopenia Thrombocytopenia Disease Active [facility] Hyperglycemia Hyperglycemia Disease Active [facility] Allergies, Adverse Reactions, Alerts Allergy Name Allergy Type Status Severity Reaction(s) Onset Date Inacti ve Date Treating Clinician Comments Source No Known Allergies DA Active U 2019-12-02 00:00:00 [facility] Family History Family Member Diagnosis Comments Start Date Stop Date Source Natural father Heart disease [facility] Social History Social Habit Start Date Stop Date Quantity Comments Source History SDOH Alcohol Std Drinks [facility] History SDOH Alcohol Binge [facility] Sex Assigned At [facility] Cigarettes smoked current (pack per day) - Reported 00:00:00 2019-10-12 00:00:00 [facility] Cigarette pack-years 2019-10-12 00:00:00 2019-10-12 00:00:00 [facility] History SDOH Alcohol Frequency 2019-09-18 00:00:00 2019-09-18 00:00:0 0 1 [facility] History of tobacco use 2019-04-21 00:00:00 Current smoker [facility] Smoking Status Start Date Stop Date Source Former smoker 2019-10-12 00:00:00 2019-10-12 00:00:00 [facility] Medications Ordered Medication Name Filled Medication Name Start Date Stop Da te Current Medication? Ordering Clinician Indication Dosage Frequency Signature (SIG) Comments Components Source apixaban (ELIQUIS) 5 mg Tab tablet 2019-10-08 00:00:00 Yes 5mg Q.5D Take 1 tablet (5 mg total) by mouth 2 (two) times daily. [facility] NOVOLOG FLEXPEN U-100 INSULIN 100 unit/mL (3 mL) InPn 2019-09-29 00:00:00 Yes INJECT 4 20 UNITS 3 TIMES DAILY AFTER ME ALS [facility] rosuvastatin (CRESTOR) 20 MG tablet 2019-09-27 00:00:00 Yes 20mg QD Take 1 tablet (20 mg total) by mouth daily. [facility] clopidogreL (PLAVIX) 75 mg tablet 2019-09-27 00:00:00 Yes 75mg QD Take 1 tablet (75 mg total) by mouth daily. [facility] losartan (COZAAR) 50 MG tablet 2019-09-27 00:00:00 Yes 50mg QD Take 1 tablet (50 mg total) by mouth daily. [facility] furosemide (LASIX) 40 MG tablet 2019-09-27 00:00:00 Yes 40mg QD Take 1 tablet (40 mg total) by mouth daily. [facility] potassium chloride SA (K-DUR,KLOR-CON) 20 MEQ tablet 2 00:00:00 Yes 20meq QD Take 1 tablet (20 mEq total) by mouth da pelon. [facility] aspirin 81 MG EC tablet 2019-09-27 00:00:00 2019-10-08 00:00:00 No 81mg QD Take 1 tablet (81 mg total) by mouth daily. [facility] rosuvastatin (CRESTOR) 20 MG tablet 2019-09-26 11:59:3 2 2019-09-26 00:00:00 No 20mg QD Take 20 mg by mouth daily. [facility] amlodipine-valsartan (EXFORGE) 10-160 mg per tablet 2019-09-26 11:59:32 2019-09-26 00:00:00 No 1{tbl} QD Take 1 tablet by linda th daily. [facility] metoprolol tartrate (LOPRESSOR) 50 MG tablet 2019-09-26 00:00:00 Yes 50mg Q.5D Take 1 tablet (50 mg total) by mouth 2 (two) times tristen ly. [facility] HYDROcodone-acetaminophen (NORCO 10-325) 10-325 mg per table t 2019-09-26 00:00:00 2019-10-01 23:59:00 No 1{tbl} Take 1 tablet by mouth every 6 (six) hours as needed for Pain for up to 5 days. Max Daily Amount: 4 tablets [facility] SITagliptin (JANUVIA) 50 MG tablet 2019-09-25 14:19:37 00:00:00 No 50mg QD Take 50 mg by mouth daily. [facility] insulin glargine (LANTUS SOLOSTAR U-100 INSULIN) 100 unit/mL (3 mL) InPn 2019-09-25 00:00:00 Yes To use 20 units bi d. [facility] insulin pen needles (BD ULTRA-FINE ZENY) 4 mm x 32 G 2 00:00:00 Yes Use 5 a day. [facility] blood-glucose meter kit 2019-09-25 00:00:00 2020-09-24 23:59:00 No Glucometer, Test strips to use 5 a day # 500 refills x 3; lancets to use 5 a day # 500 refills x3. [facility] insulin lispro (HUMALOG KWIKPEN INSULIN) 100 unit/mL InPn 2019-09-25 00:00:00 2019-10-07 00:00:00 No To us e via sliding scale from 4 to 20 units three times a day pre meals. [facility] metFORMIN (GLUCOPHAGE) 1000 MG tablet 2019-09-21 16:52 :05 2019-09-21 00:00:00 No 1000mg Take 1,000 mg b y mouth 2 (two) times daily with breakfast and dinner. [facility] fenofibrate micronized (LOFIBRA) 134 MG capsule 2019-09-18 02:02 :36 Yes 134mg Take 134 mg by mouth every morning before breakfast. [facility] Amlodipine/Valsartan (Exforge 10-160 Mg Tablet) 1 Each TABLET Amlodipine/Valsartan (Exforge 10-160 Mg Tablet) 1 Each TABLET Ye s Daily [facility] Fenofibrate,Micronized (Fenofibrate) 134 Mg CAPSULE Fe nofibrate,Micronized (Fenofibrate) 134 Mg CAPSULE Yes 134 Daily [facility] Hydrocodone Bit/Acetaminophen ([place] 7.5-325 Tablet) 1 Each TABLET Hydrocodone Bit/Acetaminophen ([place] 7.5-325 Tablet) 1 Each TABLET Yes 1 As Needed [facility] Metformin Hcl Metformin Hcl Yes 1000 Twice A Day [facility] Rosuvastatin Calcium (Crestor) 20 Mg TABLET Rosuvastat in Calcium (Crestor) 20 Mg TABLET Yes 20 Daily [facility] Sitagliptin Phosphate (Januvia) 50 Mg TABLET Sitaglipt in Phosphate (Januvia) 50 Mg TABLET Yes 50 Daily [facility] Vital Signs Vital Name Observation Time Observation Value Comments Source Systolic blood pressure 2019-10-08 22:00:00 125 mm[Hg] [facility] Diastolic blood pressure 2019-10-08 22:00:00 84 mm[Hg] [facility] Heart rate 2019-10-08 22:00:00 92 /min [facility] Respiratory rate 2019-10-08 22:00:00 17 /min [facility] Oxygen saturation in Arterial blood by Pulse oximetry 10-07 22:00:00 96 /min [facility] 2019-10-08 19:35:00 36.33 Key [facility] Body height 2019-10-07 10:50:00 182.9 cm [facility] Body weight Measured 2019-10-07 10:50:00 104.781 kg [facility] BMI 2019-10-07 10:50:00 31.33 kg/m2 [facility] Body Temperature 2019-09-17 23:00:00 98.2 [degF] [facility] BMI (Body Mass Index) 2019-09-17 21:24:00 32.3 kg/m2 [facility] Weight 2019-09-17 15:54:00 245 [lb_av] [facility] BMI (Body Mass Index) 2019-09-17 15:54:00 32.3 kg/m2 [facility] Procedures Procedure Date / Time Performed Performing Clinician [facility] e MRI HIP WO CONTRAST LT 2019-12-06 12:05:59 Prachi Ruiz [facility] RHYTHM STRIP - SCAN 2019-10-21 14:10:11 Provider, Default Scanni cyndi [facility] RHYTHM STRIP - SCAN 2019-10-12 10:32:18 Provider, Default Scanni [facility] REPORT OF PROCEDURE - ENDOSCOPY SCAN 2019-10-12 10:32:16 Pro vider, Default Scanning [facility] CARDIAC CATH REPORT - SCAN 2019-10-12 10:32:15 Provider, Default Scanning [facility] POCT-GLUCOSE METER 2019-10-08 20:58:00 Lebron, [facility] EPS & ABLATION OF SVT W/ CARTO & MAC ANESTHESIA 2019-10-08 1 3:59:00 Nemesio Perez [facility] POCT-GLUCOSE METER 2019-10-08 12:28:00 Lebron [facility] POCT-GLUCOSE METER 2019-10-08 08:29[facility]OL[facility] PANEL (7) 2019-10-08 01:37:00 Lebron [facility] MAGNESIUM 2019-10-08 01:37:00 Lebron [facility] PT/APTT 2019-10-08 [facility]:37[facility] & AUTO DIFFERENTIAL 2019-10-08 01:37:00 Purvi Diana [facility] POCT-GLUCOSE METER 2019-10-07 [facility]:15[facility] 2019-10-07 21:11[facility] PO[facility]SE [facility]ER 2019-10-07 17:13:00 [facility]) 2019-10-07 15:48:00 Geovanni Perez [facility] BASIC METABOLIC PANEL (7) 2019-10-07 15:42:00 Lebron [facility] MAGNESIUM 2019-10-07 15:42:00 Lebron [facility] PT/APTT 2019-10-07 15:42[facility] B-TYPE NATRIURETIC FACTOR (BNP) 2019-10-07 15:42:00 Viktoria Diana [facility] TROPONIN I 2019-10-07 15:42:00 LebronViktoria [facility] CBC W/PLT COUNT & AUTO DIFFERENTIAL 2019-10-07 15:42:00 Purvi Diana [facility] ECG 12-LEAD 2019-10-07 15:09:03 Unknown, Hl7 [facility] XR CHEST 1 VIEW PORTABLE/BEDSIDE 2019-10-07 14:50:00 LebronYinka gtz [facility] ECG 12-LEAD 2019-10-07 11:16:05 Unknown, Hl7 [facility] ECG 12-LEAD 2019-10-07 11:13:31 Unknown, 7 [facility] ECG 12-LEAD 2019-10-07 11:11:58 Unknown, 7 [facility] REPORT OF PROCEDURE - ENDOSCOPY SCAN 2019-09-28 10:12:40 Pro vider, Default Scanning [facility] RHYTHM STRIP - SCAN 2019-09-28 10:12:33 Provider, Default Scanni ng [facility] VASCULAR DIAGRAM -SCAN 2019-09-28 10:12:30 Provider, Default Sca [facility] POCT-GLUCOSE METER 2019-09-26 12:05:00 Lebron Viktoria [facility] POCT-GLUCOSE METER 2019-09-26 06:52:00 Viktoria Diana [facility] CBC (HEMOGRAM ONLY) 2019-09-26 04:14:00 Nikolay Cespedes Henri [facility] BASIC METABOLIC PANEL (7) 2019-09-26 04:14:00 Nikolay Cespedes [facility] MAGNESIUM 2019-09-26 04:14:00 Nikolay Cespedes Henri [facility] POCT-GLUCOSE METER 2019-09-25 21:16:00 Viktoria Diana [facility] POCT-GLUCOSE METER 2019-09-25 16:57:00 Viktoria Diana [facility] XR ABDOMEN / KUB 1 VIEW 2019-09-25 15:07:00 Kathleen Covarrubias [facility] POCT-GLUCOSE METER 2019-09-25 12:13:00 Lebron, [facility] POCT-GLUCOSE METER 2019-09-25 07:14:00 Lebron, [facility] XR CHEST 1 VIEW PORTABLE/BEDSIDE 2019-09-25 06:35:00 Liliane Delacruz y [facility] BASIC METABOLIC PANEL (7) 2019-09-25 04:22:00 Kathie, Tanwie Polyc ofelia [facility] MAGNESIUM 2019-09-25 04:22:00 Kathie, Tanwie Polycarp [facility] PHOSPHORUS 2019-09-25 04:22:00 Kathie, Tanwie Polycarp [facility] CBC W/PLT COUNT & AUTO DIFFERENTIAL 2019-09-25 04:22:00 [facility] 2019-09-24 21:16:00 [facility] LIMITED 2D ECHOCARDIOGRAM 2019-09-24 18:37:37 Georgette West I [facility] POCT-GLUCOSE METER 2019-09-24 16:40:00 [facility] POCT-GLUCOSE METER 2019-09-24 11:48:00 [facility] XR CHEST 1 VIEW PORTABLE/BEDSIDE 2019-09-24 08:58:00 Liliane Delacruz [facility] POCT-GLUCOSE METER 2019-09-24 07:13:00 Lebron, [facility] BASIC METABOLIC PANEL (7) 2019-09-24 04:44:00 Kathie, Tanwie Polyc ofelia [facility] MAGNESIUM 2019-09-24 04:44:00 Kathie, Tanwie Polycarp [facility] PHOSPHORUS 2019-09-24 04:44:00 Kathie, Tanwie Polycarp [facility] CBC W/PLT COUNT & AUTO DIFFERENTIAL 2019-09-24 04:44:00 [facility] POCT-GLUCOSE METER 2019-09-23 22:08:00 eLbron [facility] 2019-09-23 16:25:00 [facility]bron [facility] PO[facility]SE METER 2019-09-23 11:46:00 Lebron [facility] BASIC METABOLIC PANEL (7) 2019-09-23 11:17:00 Alla Desai ma [facility] MAGNESIUM 2019-09-23 11:17:00 Mikie Lentz [facility] CALCIUM, IONIZED 2019-09-23 11:16:00 Vern Andrew [facility] ECG 12-LEAD 2019-09-23 10:59:57 Unknown, Hl7 Doctor [facility] XR CHEST 1 VIEW PORTABLE/BEDSIDE 2019-09-23 10:45:00 Chase Desai Grecia [facility] POCT-GLUCOSE METER 2019-09-23 07:43:00 Lebron Viktoria [facility] CALCIUM, IONIZED 2019-09-23 03:46:00 Cecilia Delacruz [facility] BASIC METABOLIC PANEL (7) 2019-09-23 03:46:00 Mickie Vázquez ofelia [facility] MAGNESIUM 2019-09-23 03:46:00 Kathie Tangómeze Polycarp [facility] PHOSPHORUS 2019-09-23 03:46:00 Kathie Tangómeze Polycarp [facility] CBC W/PLT COUNT & AUTO DIFFERENTIAL 2019-09-23 03:46:00 [facility] POCT-GLUCOSE METER 2019-09-23 00:41:00 Lebron Viktoria [facility] BASIC METABOLIC PANEL (7) 2019-09-22 19:36:00 Cecilia Delacruz [facility] CALCIUM, IONIZED 2019-09-22 19:36:00 Cecilia Delacruz [facility] MAGNESIUM 2019-09-22 19:36:00 Cecilia Delacruz [facility] HEMOGLOBIN AND HEMATOCRIT 2019-09-22 19:36:00 Cecilia Delacruz ick [facility] POCT-GLUCOSE METER 2019-09-22 18:47:00 Viktoria Diana [facility] TRANSFUSION SERVICE REPORT - SCAN 2019-09-22 17:52:54 Provid er, Default Scanning [facility] POCT-GLUCOSE METER 2019-09-22 13:51:00 [facility] POCT-GLUCOSE METER 2019-09-22 08:28:00 [facility] HEMOGLOBIN AND HEMATOCRIT 2019-09-22 08:26:00 Artem Aguilar [facility] LACTIC ACID, ARTERIAL 2019-09-22 06:27:00 Cecilia Delacruzmsalfonso [facility] POCT-GLUCOSE METER 2019-09-22 06:03:00 [facility] ECG 12-LEAD 2019-09-22 05:05:12 Unknown, Hl7 Doctor [facility] BASIC METABOLIC PANEL (7) 2019-09-22 03:47:00 Virgil Harrington [facility] MAGNESIUM 2019-09-22 03:47:00 Virgil Harrington [facility] PHOSPHORUS 2019-09-22 03:47:00 Virgil Harrington [facility] CBC (HEMOGRAM ONLY) 2019-09-22 03:47:00 Virgil Harrington [facility] BLOOD GAS, ARTERIAL 2019-09-22 03:47:00 Cecilia Delacruz CH I [facility] OXYGEN SATURATION, MEASURED 2019-09-22 03:47:00 Anna Maki [facility] CALCIUM, IONIZED 2019-09-22 03:47:00 Anna Maki [facility] POCT-GLUCOSE METER 2019-09-22 03:44:00 [facility] XR CHEST 1 VIEW PORTABLE/BEDSIDE 2019-09-22 01:40:00 Geovany Harrington [facility] POCT-GLUCOSE METER 2019-09-22 01:19:00 [facility] POCT-GLUCOSE METER 2019-09-21 23:09:00 [facility] BLOOD GAS, ARTERIAL 2019-09-21 23:01:00 Cecilia Delacruz [facility] POTASSIUM 2019-09-21 23:01:00 [facility] MAGNESIUM 2019-09-21 23:01:00 [facility] POCT-GLUCOSE METER 2019-09-21 21:16:00 [facility] BLOOD GAS, ARTERIAL 2019-09-21 21:12:00 Cecilia Delacruz [facility] CALCIUM, IONIZED 2019-09-21 20:03:00 Vern Andrew [facility] PREPARE RBC 2019-09-21 20:03:00 [facility] LACTIC ACID, ARTERIAL 2019-09-21 19:51:00 Cecilia Delacruz [facility] OXYGEN SATURATION, MEASURED 2019-09-21 19:51:00 Cecilia Delacruz [facility] BLOOD GAS, ARTERIAL 2019-09-21 19:51:00 Cecilia Delacruz [facility] SODIUM NA-STAT LAB 2019-09-21 19:51:00 Cecilia Delacruz [facility] POTASSIUM-STAT LAB 2019-09-21 19:51:00 Cecilia Delacruz [facility] GLUCOSE-STAT LAB 2019-09-21 19:51:00 Cecilia Delacruz [facility] HGB/HCT (H&H) - STAT LAB 2019-09-21 19:51:00 Cecilia Delacruz [facility] ECG 12-LEAD 2019-09-21 19:20:48 Artem Aguilar [facility] PHOSPHORUS 2019-09-21 18:58:00 Virgil Harrington [facility] POTASSIUM 2019-09-21 18:58:00 Virgil Harrington [facility] MAGNESIUM 2019-09-21 18:58:00 Virgil Harrington [facility] POCT-GLUCOSE METER 2019-09-21 18:53:00 KortneyGeorgette [facility] XR CHEST 1 VIEW PORTABLE/BEDSIDE 2019-09-21 17:57:00 Geovany Harrington [facility] TRANSFUSION SERVICE REPORT - SCAN 2019-09-21 17:51:48 Provid er, Default Scanning [facility] PROTHROMBIN TIME/INR 2019-09-21 16:37:00 Jeff [facility] PT/APTT 2019-09-21 16:37:00 Jeff [facility] OXYGEN SATURATION, MEASURED 2019-09-21 16:21:00 Artem Aguilar [facility] BASIC METABOLIC PANEL (7) 2019-09-21 16:18:00 Virgil Harrington [facility] MAGNESIUM 2019-09-21 16:18:00 Virgil Harrington [facility] RRL CRITICAL LABS (ABG,NA,K,H&H,GLUCOSE) 2019-09-21 16:18:00 Artem Nava [facility] COMPREHENSIVE METABOLIC PANEL 2019-09-21 16:18:00 Darrion Aguilar dd [facility] SODIUM NA-STAT LAB 2019-09-21 16:18:00 Artem Aguilar [facility] POTASSIUM-STAT LAB 2019-09-21 16:18:00 Artem Aguilar [facility] GLUCOSE-STAT LAB 2019-09-21 16:18:00 Artem Aguilar [facility] HGB/HCT (H&H) - STAT LAB 2019-09-21 16:18:00 Artem Aguilar [facility] CBC W/PLT COUNT & AUTO DIFFERENTIAL 2019-09-21 16:18:00 Artem Bray [facility] POCT-ACT 2019-09-21 14:39:00 KortneyGeorgette murray [facility] CALCIUM, IONIZED 2019-09-21 14:37:06 Parker Stafford [facility] BLOOD GAS, ARTERIAL 2019-09-21 14:37:06 Parker Stafford [facility] SODIUM NA-STAT LAB 2019-09-21 14:37:06 Parker Stafford [facility] POTASSIUM-STAT LAB 2019-09-21 14:37:06 Parker Stafford [facility] GLUCOSE-STAT LAB 2019-09-21 14:37:06 Parker Stafford [facility] HGB/HCT (H&H) - STAT LAB 2019-09-21 14:37:[address] [facility] POCT-ACT 2019-09-21 13:48:00 Kortney [facility] BLOOD GAS, ARTERIAL 2019-09-21 13:45:58 Janine Campbell [facility] SODIUM NA-STAT LAB 2019-09-21 13:45:58 Janine Campbell [facility] POTASSIUM-STAT LAB 2019-09-21 13:45:58 Janine Campbell [facility] GLUCOSE-STAT LAB 2019-09-21 13:45:58 Janine Campbell [facility] HGB/HCT (H&H) - STAT LAB 2019-09-21 13:45:58 Janine Campbell [facility] POCT-ACT 2019-09-21 13:18:00 Kortney [facility] BLOOD GAS, ARTERIAL 2019-09-21 13:15:27 Janine Campbell [facility] SODIUM NA-STAT LAB 2019-09-21 13:15:27 Janine Campbell [facility] POTASSIUM-STAT LAB 2019-09-21 13:15:27 Janine Campbell [facility] GLUCOSE-STAT LAB 2019-09-21 13:15:27 Janine Campbell [facility] HGB/HCT (H&H) - STAT LAB 2019-09-21 13:15:27 Janine Campbell [facility] POCT-ACT 2019-09-21 12:48:00 Kortney [facility] BLOOD GAS, ARTERIAL 2019-09-21 12:45:17 Janine Campbell [facility] SODIUM NA-STAT LAB 2019-09-21 12:45:17 Janine Campbell [facility] POTASSIUM-STAT LAB 2019-09-21 12:45:17 Janine Campbell [facility] GLUCOSE-STAT LAB 2019-09-21 12:45:17 Janine Campbell [facility] HGB/HCT (H&H) - STAT LAB 2019-09-21 12:45:17 [facility] 2019-09-21 12:21:00 Kortney [facility] POCT-ACT 2019-09-21 10:46:00 [facility] ANESTHESIA MARIAM 2019-09-21 10:19:19 [facility], [facility]ON[facility]ED 2019-09-21 10:17:52 [facility]LO[facility], ARTERIAL 2019-09-21 10:17:52 [facility] 2019-09-21 10:17:[facility] 2019-09-21 10:17:52 [facility] GLU[facility] 2019-09-21 10:17:52 [facility] HGB/HCT (H&H) - STAT LAB 2019-09-21 10:17:52 [facility] BYPASS,AORTO CORONARY AYDEE/SVG 2019-09-21 10:00:00 Bonnie Campbell [facility] ENDOSCOPIC HARVEST,VEIN 2019-09-21 10:00:00 Janine Campbell [facility] MARIAM 2019-09-21 10:00:00 Janine Campbell [facility] POCT-GLUCOSE METER 2019-09-21 08:00:00 Kortney [facility] PLATELET AGGREGATION: FUNCTION SCREEN 2019-09-21 06:44:00 Co Janine lucas [facility] CBC (HEMOGRAM ONLY) 2019-09-21 06:44:00 Donny Bautista Roni [facility] BASIC METABOLIC PANEL (7) 2019-09-21 06:44:00 Donny Bautista [facility] MAGNESIUM 2019-09-21 06:44:00 [facility] AP[facility] 2019-09-21 06:44:00 Mike García [facility] POCT-GLUCOSE METER 2019-09-21 06:38:00 Kortney [facility] XR CHEST 1 VIEW PORTABLE/BEDSIDE 2019-09-20 23:46:00 Chivo Knutson [facility] POCT-GLUCOSE METER 2019-09-20 23:27:00 Kortney, [facility] POCT-GLUCOSE METER 2019-09-20 20:23:00 Kortney [facility] ECG 12-LEAD 2019-09-20 18:05:53 Unknown, Hl7 [facility] ABORH, MANUAL 2019-09-20 16:38:00 Mera Pimentel [facility] POCT-GLUCOSE METER 2019-09-20 16:22:00 [facility] SARS-COV2/RT-PCR ([facility]) 2019-09-20 15:17:00 Donna Cartagena [facility] MAGNESIUM 2019-09-20 15:09:00 Al Hadad[facility]OT[facility]/INR 2019-09-20 15:09:00 [facility] 2019-09-20 15:09:00 [facility] POTASSIUM 2019-09-20 15:09:00 Tor [facility] TYPE AND SCREEN, AUTOMATED 2019-09-20 15:09:00 Leroy Bolton Donna bejarano [facility] POCT-GLUCOSE METER 2019-09-20 11:24:00 [facility] APTT 2019-09-20 09:13:00 Mike García [facility] XR CHEST 1 VIEW PORTABLE/BEDSIDE 2019-09-20 08:17:00 Daina Robertson [facility] POCT-GLUCOSE METER 2019-09-20 07:25:00 Kortney [facility] HEMOGLOBIN A1C 2019-09-20 06:47:00 Donny Bautista [facility] PLATELET AGGREGATION: FUNCTION SCREEN 2019-09-20 06:47:00 Donny Zheng [facility] BASIC METABOLIC PANEL (7) 2019-09-20 06:47:00 Daina Robertson [facility] MAGNESIUM 2019-09-20 06:47:00 [facility] 2019-09-20 06:47:00 Al Donna Bolton [facility] CBC W/PLT COUNT & AUTO DIFFERENTIAL 2019-09-20 06:47:[address] [facility] APTT 2019-09-20 02:11:[address] [facility] POTASSIUM 2019-09-19 23:29:00 AmoldebbieMikie gama [facility] MAGNESIUM 2019-09-19 23:29:00 Kuchibhcoreydavid, [facility] APTT 2019-09-19 23:29:00 Raquel [facility] POCT-GLUCOSE METER 2019-09-19 21:26:00 Kortney [facility] APTT 2019-09-19 16:38:00 Raquel [facility] POCT-GLUCOSE METER 2019-09-19 16:33:00 Kortney [facility] POCT-GLUCOSE METER 2019-09-19 13:19:00 Nick Walters I [facility] POCT-GLUCOSE METER 2019-09-19 09:43:00 Nick Walters CH I [facility] APTT 2019-09-19 09:24:00 Raquel [facility] XR CHEST 1 VIEW PORTABLE/BEDSIDE 2019-09-19 07:53:00 Donny Bautista julieta [facility] POCT-GLUCOSE METER 2019-09-19 07:52:00 Nick Walters CH I [facility] VEIN MAPPING LEGS BILATERAL 2019-09-19 05:06:00 [facility] CAROTID DOPPLER BILATERAL 2019-09-19 04:48:00 [facility] PLATELET AGGREGATION: FUNCTION SCREEN 2019-09-19 04:30:00 Janine Champion [facility] APTT 2019-09-19 02:12:00 Raquel [facility] TROPONIN I 2019-09-19 02:12:00 Bautista, Vivekkumar [facility] BASIC METABOLIC PANEL (7) 2019-09-19 02:12:00 Audra Lentz [facility] CBC W/PLT COUNT & AUTO DIFFERENTIAL 2019-09-19 02:12:[address] [facility] POCT-GLUCOSE METER 2019-09-18 20:16:00 Nick Walters [facility] TROPONIN I 2019-09-18 20:08:00 BautistaDonny gayle [facility] APTT 2019-09-18 18:07:[address] [facility] POCT-GLUCOSE METER 2019-09-18 16:11:00 Nick Walters [facility] 2D ECHO W/ DOPPLER (CW/PW/COLOR) 2019-09-18 11:51:24 Lora Bautistajoandevorah [facility] XR CHEST 1 VIEW PORTABLE/BEDSIDE 2019-09-18 11:32:00 Madan Chavarria [facility] POCT-GLUCOSE METER 2019-09-18 11:27:00 Nick Walters [facility] PLATELET AGGREGATION: FUNCTION SCREEN 2019-09-18 11:21:00 Manjit maguire Donny [facility] TROPONIN I 2019-09-18 11:21:00 Madan Chavarria [facility] APTT 2019-09-18 11:21:[address] [facility] POCT-GLUCOSE METER 2019-09-18 07:48:00 Nick Walters [facility] APTT 2019-09-18 03:22:[address] [facility] ECG 12-LEAD 2019-09-18 02:59:16 Unknown, Hl7 [facility] XR CHEST 1 VIEW PORTABLE/BEDSIDE 2019-09-18 02:52:[address] [facility] TSH/FREE T4 IF INDICATED 2019-09-18 02:43:00 Mike García [facility] LIPID PANEL 2019-09-18 02:43:[address] [facility] HEMOGLOBIN A1C 2019-09-18 02:43:[address] [facility] BASIC METABOLIC PANEL (7) 2019-09-18 02:43:[address] [facility] MAGNESIUM 2019-09-18 02:43:[address] [facility] B-TYPE NATRIURETIC FACTOR (BNP) 2019-09-18 02:43:[address] [facility] TROPONIN I 2019-09-18 02:43:[address] [facility] CBC W/PLT COUNT & AUTO DIFFERENTIAL 2019-09-18 02:43:[address] [facility] Plan of Care Planned Activity Planned Date Details Comments Source Future Scheduled Test 2022-09-19 00:00:00 Lipid [facility] (proce dure[facility]730[facility] 2020-03-21 00:00:00 Hemoglobin A1c olya surement (procedure) [code = 70696219] [facility] 2019-12-21 00:00:00 INFLUENZA VACCINE (#1) [code = INFLUENZA VACCINE (#1)] [facility] 2019-11-20 00:00:00 INFLUENZA VACCINE [code = INFLUENZA VACCINE] [facility] Scheduled Test 2006 00:00:00 COLONOSCOPY SCREEN ING [code = COLONOSCOPY SCREENING] [facility] Scheduled Test 2006 00:00:00 SHINGLES VACCINES (#1) [code = SHINGLES VACCINES (#1)] [facility] Scheduled Test 1966 00:00:00 DIABETIC FOOT EXAM [code = DIABETIC FOOT EXAM] [facility] Scheduled Test 1966 00:00:00 URINE MICROALBUMIN [code = URINE MICROALBUMIN] [facility] Scheduled Test 1966 00:00:00 DIABETIC EYE EXAM [code = DIABETIC EYE EXAM] [facility] 00:00:00 Diabetic foot exam ination (regime/therapy) [code = 958380411] [facility] 1966 00:00:00 Urine screening fo r protein (procedure) [code = 191125954] [facility] Future Scheduled Test 1962 00:00:00 PNEUMOCOCCAL VACCI NE 2-64 YEARS AT RISK (1 of 1 - PPSV23) [code = PNEUMOCOCCAL VACCINE 2-64 YEARS AT RISK (1 of 1 - PPSV23)] [facility] 1956 00:00:00 DIABETIC RETINAL E YE EXAM [code = DIABETIC RETINAL EYE EXAM] [facility] Future Scheduled Test 1955 00:00:00 Screening for yuki gnant neoplasm of colon (procedure) [code = 772046000] [facility] Encounters Start Date/Time End Date/Time Encounter Type Admission Type Attendi [facility] Care Department Encounter ID Source 2019-12-06 00:00:00 2019-12-06 00:00:00 Outpatient PRACHI RUIZ [facility] [id number] [facility] 2019-09-17 19:52:00 2019-09-18 00:06:[address] [facility] [id number] [facility] 2019-09-17 15:40:00 2019-09-17 15:58:[address] [facility] [id number] [facility] Results Test Description Test Time Test Comments Results Result Comments Source KNEE 2 VIEW LT - HOPD 2020-01-17 19:45:00 [facility] [address] [address] Patient Name: ARACELI MOTTA MR #: [id number] : 1955 Age/Sex: 64/M Req #: [id number] Adm Physician: Ordered by: LUPE ESTEBAN MD Report #: [id number] Location: [facility] Room/Bed: Procedure: [id number] HOPD/KNEE 2 VIEW LT - HOPD Exam Date: 01/17/20 Exam Time: 1929 REPORT STATUS: Signed Knee limited left CPT code: 14843 Indication: Fall, lateral pain Technique: AP and lateral view obtained of the left knee. Comparison: None Findings: No fracture or dislocation. Mild prominence of the tibial spines. Calcifications of the menisci, lateral greater than medial. The lateral aspect of the lateral compartment demonstrates prominent soft tissue. No joint effusion. Diffuse ectasia of the popliteal artery. IMPRESSION: No acute fracture or dislocation. Mild degenerative changes of the knee with bilateral chondrocalcinosis. Acute meniscal injury cannot be excluded by x-ray. Consider further evaluation of the knee with MRI. This can be performed on an outpatient basis. Signed by: Dr. Wesley Odonnell MD on 01/17/2020 7:48 PM Dictated By: WESLEY ODONNELL MD 47 Transcribed By: FRANCISCO on 01/17/201947 COPY TO: LUPE ESTEBAN MD GLUBED 2019-12-08 17:23:00 Test Item GLUBED (test code = GLUBED) 295 MG/DL 70-105 H COAGULATION TIME [id number] 13:59:00* Test Item Value Reference Range Interpretation Comments COAGULATION TIME ACTIVATED (test code = ACT) 263 SECONDS 74-137 H COMPREHENSIVE METABOLIC [id number] 11:31:00* Test Item Value Reference Range Interpretation Comments SODIUM (test code = NA) 130 MMOL/L 136-143 L POTASSIUM (test code = K) 4.5 MMOL/L 3.5-5.1 N CHLORIDE (test code = CL) 96 MMOL/L 98-107 L CARBON DIOXIDE (test code = CO2) 22 mmol/L 24-31 L GLUCOSE (test code = GLU) 272 mg/dL 70-104 H BLOOD UREA NITROGEN (test code = BUN) 7.8 MG/DL 7.0-21.0 N GLOMERULAR FILTRATION RATE (test code = GFR) >=60 max estimate >60 The estimated glomerular filtration rate is computed usingpatient race, age (>18), sex, and serum creatinine. If anyof the needed data elements are missing the Laboratory cannot compute an estimation of the glomerular filtration rate. CREATININE (test code = CREAT) 0.4 mg/dL 0.8-1.5 L TOTAL PROTEIN (test code = PROT) 6.9 g/dL 6.3-8.3 N ALBUMIN (test code = ALB) 4.5 G/DL 3.5-5.0 N CALCIUM (test code = CA) 9.3 mg/dL 8.8-10.2 N BILIRUBIN TOTAL (test code = BILT) 0.4 mg/dL 0.2-1.0 N SGOT/AST (test code = AST) 19 IU/L 10-34 N SGPT/ALT (test code = ALT) 25 U/L 10-44 N ALKALINE PHOSPHATASE (test code = ALKP) 102 U/L 45-120 N Novel Coronavirus [id number] 02:13:00* Test Item Value Reference Range Interpretation Comments Novel Coronavirus 2019 nCoV (test code = COVID19) Not Detected Not Detected Testing was performed using the Aptima SARS-CoV-2 assay.This test was developed and its performance characteristicsdetermined by [employer]. This test has not beenFDA cleared or approved. This test has been authorized byFDA under an Emergency Use Authorization (EUA). This testis only authorized for the duration of time the declarationthat circumstances exist justifying the authorization ofthe emergency use of in vitro diagnostic tests fordetection of SARS-CoV-2 virus and/or diagnosis of COVID-19infection under section 564(b)(1) of the Act, 21 U.S.C.360bbb-3(b)(1), unless the authorization is terminated orrevoked sooner. When diagnostic testing is negative, thepossibility of a false negative result should be consideredin the context of a patient's recent exposures and thepresence of clinical signs and symptoms consistent withCOVID- 19. An individual without symptoms of COVID-19 andwho is not shedding SARS-CoV-2 virus would expect to have anegative (not detected) result in this assay.Perf ormed At: [facility] [place], [place] [id number] Loja MD Ph:[phone] Novel Coronavirus [id number] 08:13:00* Test Item Value Reference Range Interpretation Comments Novel Coronavirus 2019 nCoV (test code = COVID19) Not Detected Not Detected Testing was performed using the Aptima SARS-CoV-2 assay.This test was developed and its performance characteristicsdetermined by [employer]. This test has not beenFDA cleared or approved. [facility] under an Emergency Use Authorization (EUA). This testis only authorized for the duration of time the declarationthat circumstances exist justifying the authorization ofthe emergency use of in vitro diagnostic tests fordetection of SARS-CoV-2 virus and/or diagnosis of COVID-19infection under section 564(b)(1) of the Act, 21 U.S.C.360bbb-3(b)(1), unless the authorization is terminated orrevoked sooner. When diagnostic testing is negative, thepossibility of a false negative result should be consideredin the context of a patient's recent exposures and thepresence of clinical signs and symptoms consistent withCOVID- 19. An individual without symptoms of COVID-19 andwho is not shedding SARS-CoV-2 virus would expect to have anegative (not detected) result in this assay.Perf ormed At: [facility] [address] [place], [place] [id number] Loja MD Ph:[phone] BASIC METABOLIC [id number] 13:25:00* Test Item Value Reference Range Interpretation Comments SODIUM (test code = NA) 135 MMOL/L 136-143 L POTASSIUM (test code = K) 5.2 MMOL/L 3.5-5.1 H CHLORIDE (test code = CL) 100 MMOL/L 98-107 N CARBON DIOXIDE (test code = CO2) 23 mmol/L 24-31 L GLUCOSE (test code = GLU) 164 mg/dL 70-104 H BLOOD UREA NITROGEN (test code = BUN) 9.1 MG/DL 7.0-21.0 N GLOMERULAR FILTRATION RATE (test code = GFR) >=60 max estimate >60 The estimated glomerular filtration rate is computed usingpatient race, age (>18), sex, and serum creatinine. If anyof the needed data elements are missing the Laboratory cannot compute an estimation of the glomerular filtration rate. CREATININE (test code = CREAT) 0.5 mg/dL 0.8-1.5 L CALCIUM (test code = CA) 9.7 mg/dL 8.8-10.2 N CBC W/AUTO [id number] 13:19:00* Test Item Value Reference Range Interpretation Comments WHITE BLOOD CELL (test code = WBC) 7.1 x10 3/uL 4.8-10.8 N RED BLOOD CELL (test code = RBC) 5.36 x10 6/uL 4.70-6.10 N HEMOGLOBIN (test code = HGB) 15.6 g/dL 14.5-20 N HEMATOCRIT (test code = HCT) 47.2 % 42.0-52.0 N MEAN CELL VOLUME (test code = MCV) 88.1 fL 80.0-94.0 N MEAN CELL HGB (test code = MCH) 29.1 pg 27-31 N MEAN CELL HGB CONCENTRATION (test code = MCHC) 33.1 G/DL 33-36.5 N RED CELL DISTRIBUTION WIDTH (test code = RDW) 13.5 % 12.9-16. 9 N PLATELET COUNT (test code = PLT) 267 150-440 N MEAN PLATELET VOLUME (test code = MPV) 10.3 fL 8.9-12.4 N NEUTROPHIL % (test code = NT%) 62.7 % 42.2-75.2 N LYMPHOCYTE % (test code = LY%) 27.3 % 20.5-51.1 N MONOCYTE % (test code = MO%) 6.6 % 1.7-9.3 N EOSINOPHIL % (test code = EO%) 2.3 % 0.0-7.0 N BASOPHIL % (test code = BA%) 0.8 % 0-2.5 N NEUTROPHIL # (test code = NT#) 4.44 x10 3/uL 1.80-7.70 N LYMPHOCYTE # (test code = LY#) 1.93 x10 3/uL 1.00-4.80 N MONOCYTE # (test code = MO#) 0.47 x10 3/uL 0.00-0.80 N EOSINOPHIL # (test code = EO#) 0.16 x10 3/uL 0.00-0.45 N BASOPHIL # (test code = BA#) 0.06 x10 3/uL 0.0-0.20 N ECG 12 [id number] 15:28:50Interface, External Ris In - 11/03/2019 3:28 PM CDTVentricular Rate 137 BPMAtrial Rate 137 BPMP-R Interval 142 msQRS Duration 84 msQ-T Interval 266 msQTC Calculation(Bazett) 401 msR [place] -38 degreesT [place] 124 degreesAtrial flutter with 2 to 1 blockLeft axis deviationInferior infarct (cited on or before 20-SEP-2019)Poor R wave progression Cannot rule out Possible Anterior infarct (cited on or before 20-SEP-2019)Abnormal ECGWhen compared with ECG of 07-OCT-2019 11:13,No significant changesConfirmed by Jorge A WHITE, GARRISON ([id number]) on 11/03/2019 3:28:47 [facility]-Glucose meter 2019-10-08 21:17:00* Test Item Value Reference Range Interpretation Comments POC-Glucose Meter (test code = 1538) 224 mg/dL 70-110 H : TESTED AT [address], [address]: Window Glazier Helper/Financial Accounting Manager ID = [id number] for OMEGA GUILLORY Lab Interpretation (test code = 19209-6) Abnormal [facility]-GLUCOSE [id number] 21:17:00* Test Item Value Reference Range Interpretation Comments POC-GLUCOSE METER (BEAKER) (test code = 1538) 224 mg/dL 70-110 H : TESTED AT [address], [address]: Window Glazier Helper/Financial Accounting Manager ID = [id number] for OMEGA GUILLORY POCT-GLUCOSE [id number] 12:39:00* Test Item Value Reference Range Interpretation Comments POC-GLUCOSE METER (BEAKER) (test code = 1538) 157 mg/dL 70-110 H : Notified RN/MD: TESTED AT [address], [address]: Window Glazier Helper/Financial Accounting Manager ID = [id number] for ASTON ODONNELL POCT-GLUCOSE [id number] 08:40:00* Test Item Value Reference Range Interpretation Comments POC-GLUCOSE METER (JOSE) (test code = 1538) 176 mg/dL 70-110 H : Notified RN/MD: TESTED AT [facility] [address] [facility], [address]: Window Glazier Helper/Financial Accounting Manager ID = [id number] for ASTON ODONNELL Troponin [id number] 03:06:00* Test Item Value Reference Range Interpretation Comments Troponin I (test code = 27833-1) 0.02 ng/mL 0-0.03 LOLA (test code = LOLA) Troponin I (TnI) levels must be interpreted in the context of the presenting symptoms and the clinical findings. Elevated TnI levels indicate myocardial damage, but are not specific for ischemic heart disease. Elevated TnI levels are seen in patients with other cardiac conditions (including myocarditis and congestive heart failure), and slight TnI elevations occur in patients with other conditions, including sepsis, renal failure, acidosis, acute neurological disease, and persistent tachyarrhythmia.Window Glazier Helper ID - DB Lab Interpretation (test code = 98232-5) [facility] [id number] 03:06:00* Test Item Value Reference Range Interpretation Comments TROPONIN I (LUISAKER) (test code = 397) 0.02 ng/mL 0.00-0.03 Troponin I (TnI) levels must be interpreted in the context of the presenting sym ptoms and the clinical findings. Elevated TnI levels indicate myocardial damage, but are not specific for ischemic heart disease. Elevated TnI levels are seen in patients with other cardiac conditions (including myocarditis and congestive h eart failure), and slight TnI elevations occur in patients with other conditions , including sepsis, renal failure, acidosis, acute neurological disease, and per sistent tachyarrhythmia.Window Glazier Helper ID - DBBasi metabolic [id number] 02:59:00 * Test Item Value Reference Range Interpretation Comments Sodium (test code = 2951-2) 132 meq/L 136-145 L Potassium (test code = 2823-3) 4.7 meq/L 3.5-5.1 Specimen moderately hemolyzed Chloride (test code = 2075-0) 103 meq/L 98-107 CO2 (test code = 2028-9) 21 meq/L 22-29 L BUN (test code = 3094-0) 9 mg/dL 7-21 Creatinine (test code = 2160-0) 0.68 mg/dL 0.57-1.25 Specimen moderately hemolyzed Glucose (test code = 2345-7) 212 mg/dL 70-105 H Calcium (test code = 14817-8) 8.8 mg/dL 8.4-10.2 EGFR (test code = 92159-3) 118 mL/min/1.73 sq m ESTIMATED GFR IS NOT ACCURATE CREATININE CLEARANCE IN PREDICTING GLOMERULAR FILTRATION RATE. ESTIMATED GFR IS NOT APPLICABLE FOR DIALYSIS PATIENTS. LOLA (test code = LOLA) Window Glazier Helper ID - DB Lab Interpretation (test code = 01283-4) Abnormal [facility]2020-06-19 02:59:00* Test Item Value Reference Range Interpretation Comments Magnesium (test code = 62560-0) 1.9 mg/dL 1.6-2.6 Specimen moderately hemolyzed LOLA (test code = LOLA) Window Glazier Helper ID - DB Lab Interpretation (test code = 13091-7) Normal [facility]2020-06-19 02:59:00* Test Item Value Reference Range Interpretation Comments MAGNESIUM (BEAKER) (test code = 627) 1.9 mg/dL 1.6-2.6 Specimen moderately hemolyzed Window Glazier Helper ID - DBBASIC METABOLIC [id number] 02:59:00* Test Item Value Reference Range Interpretation Comments SODIUM (BEAKER) (test code = 381) 132 meq/L 136-145 L POTASSIUM (BEAKER) (test code = 379) 4.7 meq/L 3.5-5.1 Specimen moderately hemolyzed CHLORIDE (BEAKER) (test code = 382) 103 meq/L 98-107 CO2 (BEAKER) (test code = 355) 21 meq/L 22-29 L BLOOD UREA NITROGEN (BEAKER) (test code = 354) 9 mg/dL 7-21 CREATININE (BEAKER) (test code = 358) 0.68 mg/dL 0.57-1.25 Specimen moderately hemolyzed GLUCOSE RANDOM (BEAKER) (test code = 652) 212 mg/dL 70-105 H CALCIUM (BEAKER) (test code = 697) 8.8 mg/dL 8.4-10.2 EGFR (BEAKER) (test code = 1092) 118 mL/min/1.73 sq m ESTIMATED GFR IS NOT ACCURATE CREATININE CLEARANCE IN PREDICTING GLOMERULAR FILTRATION RATE. ESTIMATED GFR IS NOT APPLICABLE FOR DIALYSIS PATIENTS. Window Glazier Helper ID - DBPT/[id number] 01:58:00* Test Item Value Reference Range Interpretation Comments Protime (test code = 5902-2) 15.1 11.9- 14.2 seconds H INR (test code = 6301-6) 1.2 <=5.9 PTT (test code = 95005-9) 31.4 22.5- 36.0 seconds LOLA (test code = LOLA) Effective 09/16/2018: PT Refe rence Range ChangeNew: 11.9- 14.2 Previous: 11.7-14.7 RECOMMENDED COUMADIN/WARFARIN INR THERAPY RANGESSTANDARD DOSE: 2.0-3.0 Includes: PROPHYLAXIS for venous thrombosis, sys temic embolization; TREATMENT for venous thrombosis and/or pulmonary embolus.HIGH RISK: Target INR is 2.5-3.5 for patients wiht mechanical heart valves. Lab Interpretation (test code = 41687-4) [facility][id number] 01:58:00* Test Item Value Reference Range Interpretation Comments PROTIME (BEAKER) (test code = 759) 15.1 seconds 11.9-14.2 H INR (BEAKER) (test code = 370) 1.2 <=5.9 PARTIAL THROMBOPLASTIN TIME (BEAKER) (test code = 760) 31.4 seconds 22.5-36.0 Effective 09/16/2018: PT Reference Range ChangeNew: 11.9-14.2 Previous: 11.7-14. 7RECOMMENDED COUMADIN/WARFARIN INR THERAPY RANGESSTANDARD DOSE: 2.0-3.0 Include s: PROPHYLAXIS for venous thrombosis, systemic embolization; TREATMENT for venou s thrombosis and/or pulmonary embolus.HIGH RISK: Target INR is 2.5-3.5 for patie nts wiht mechanical heart valves.CBC with platelet count + automated diff 2019-10-08 01:46:00* Test Item Value Reference Range Interpretation Comments WBC (test code = 6690-2) 8.1 3.5- 10.5 K/L RBC (test code = 789-8) 4.16 4.63- 6.08 M/L L MCHC (test code = 786-4) 33.4 32.3- 36.5 GM/DL L Hematocrit (test code = 4544-3) 37.7 % 40.1-51 L MCV (test code = 787-2) 90.6 fL 79-92.2 MCH (test code = 785-6) 30.3 pg 25.7-32.2 RDW (test code = 788-0) 13.7 % 11.6-14.4 Platelets (test code = 777-3) 425 150- 450 K/CU MM MPV (test code = 08995-8) 9.0 fL 9.4-12.4 L nRBC (test code = 413) 0 0- 0 /100 WBC % Neutros (test code = 429) 62 % % Lymphs (test code = 430) 26 % % Monos (test code = 431) 7 % % Eos (test code = 432) 3 % % Baso (test code = 437) 1 % # Neutros (test code = 670) 5.04 1.78- 5.38 K/L # Lymphs (test code = 414) 2.12 1.32- 3.57 K/L # Monos (test code = 415) 0.56 0.30- 0.82 K/L # Eos (test code = 416) 0.24 0.04- 0.54 K/L # Baso (test code = 417) 0.08 0.01- 0.08 K/L Immature Granulocytes-Relative (test code = 2801) 1 % 0-1 Lab Interpretation (test code = 06704-0) [facility]normal [facility] & AUTO [id number] 01:46:00* Test Item Value Reference Range Interpretation Comments WHITE BLOOD CELL COUNT (BEAKER) (test code = 775) 8.1 K/ L 3.5- 10.5 RED BLOOD CELL COUNT (BEAKER) (test code = 761) 4.16 M/ L 4.63-6 .08 L HEMOGLOBIN (BEAKER) (test code = 410) 12.6 GM/DL 13.7-17.5 L HEMATOCRIT (BEAKER) (test code = 411) 37.7 % 40.1-51.0 L MEAN CORPUSCULAR VOLUME (BEAKER) (test code = 753) 90.6 fL 79. 0-92.2 MEAN CORPUSCULAR HEMOGLOBIN (BEAKER) (test code = 751) 30.3 pg 25.7-32.2 MEAN CORPUSCULAR HEMOGLOBIN CONC (BEAKER) (test code = 752) 33.4 GM/DL 32.3-36.5 RED CELL DISTRIBUTION WIDTH (BEAKER) (test code = 412) 13.7 % 11.6-14.4 PLATELET COUNT (BEAKER) (test code = 756) 425 K/CU MM 150-450 MEAN PLATELET VOLUME (BEAKER) (test code = 754) 9.0 fL 9.4-12 .4 L NUCLEATED RED BLOOD CELLS (BEAKER) (test code = 413) 0 /100 WBC 0 -0 NEUTROPHILS RELATIVE PERCENT (BEAKER) (test code = 429) 62 % LYMPHOCYTES RELATIVE PERCENT (BEAKER) (test code = 430) 26 % MONOCYTES RELATIVE PERCENT (BEAKER) (test code = 431) 7 % EOSINOPHILS RELATIVE PERCENT (BEAKER) (test code = 432) 3 % BASOPHILS RELATIVE PERCENT (BEAKER) (test code = 437) 1 % NEUTROPHILS ABSOLUTE COUNT (BEAKER) (test code = 670) 5.04 K/ L 1.78-5.38 LYMPHOCYTES ABSOLUTE COUNT (BEAKER) (test code = 414) 2.12 K/ L 1.32-3.57 MONOCYTES ABSOLUTE COUNT (BEAKER) (test code = 415) 0.56 K/ L 0. 30-0.82 EOSINOPHILS ABSOLUTE COUNT (BEAKER) (test code = 416) 0.24 K/ L 0.04-0.54 BASOPHILS ABSOLUTE COUNT (BEAKER) (test code = 417) 0.08 K/ L 0. 01-0.08 IMMATURE GRANULOCYTES-RELATIVE PERCENT (BEAKER) (test code = 2801) 1 % 0-1 POCT-GLUCOSE [id number] 22:34:00* Test Item Value Reference Range Interpretation Comments POC-GLUCOSE METER (BEAKER) (test code = 1538) 232 mg/dL 70-110 H : TESTED AT [address], [address]: Window Glazier Helper/Financial Accounting Manager ID = [id number] for OMEGA GUILLORY POCT-GLUCOSE [id number] 21:23:00* Test Item Value Reference Range Interpretation Comments POC-GLUCOSE METER (BEAKER) (test code = 1538) 198 mg/dL 70-110 H : TESTED AT [facility] [address] [facility], [address]: Window Glazier Helper/Financial Accounting Manager ID = [id number] for Nel Paul POCT-GLUCOSE [id number] 17:27:00* Test Item Value Reference Range Interpretation Comments POC-GLUCOSE METER (BEAKER) (test code = 1538) 271 mg/dL 70-110 H : TESTED AT [facility] [address] [facility], [address]: Window Glazier Helper/Financial Accounting Manager ID = [id number] for JOSE SANZ SARS-CoV2/RT-PCR (Asymptomatic ONLY)2019-10-07 17:24:00* Test Item Value Reference Range Interpretation Comments SARS-COV2/RT-PCR (test code = 87049-2) Not Detected Not Detected, N egative SARS-COV-2 PERFORMING LAB (test code = 97357-5) [facility] LOLA (test code = LOLA) Negative results do not prec lude SARS-CoV-2 infection and should not be used as the sole basis for patient management decisions. Negative results must be combined with clinical observations, patient history, and epidemiological information. A false negative result may occur if a specimen is improperly collected, transported or handled. The limit of detection for this assay is 250 copies/mL. This SARS CoV-2 test is a rapid, real-time RT-PCR test intended for the qualitative detection of nucleic acid from SARS-CoV-2 in a nasopharyngeal swab specimen collected from individuals suspected of COVID-19 by their healthcare provider. This test has not been Food and Drug Administration (FDA) cleared or approved and has been authorized by FDA under an Emergency Use Authorization (EUA). This EUA will be effective until the declaration that circumstances exist justifying the authorization of the emergency use of in vitro diagnostic tests for detection and/or diagnosis of COVID-19 is terminated under Section 564(b)(2) of the Act or the EUA is revoked under Section 564(g) of the Act. Fact Sheet for Healthcare Providers:https://www.[employer]/Documents/Xpert%20Xpress%20SARS%20CoV-2/Fact%2 0Sheets/302-3802%28YNRG-CHU-6%20HEALTHCARE%20PROVIDERS%20FACT%20SHEET.pdf Fact Sheet for Healthcare Patients:https://www.[facility]/Documents/Xpert%20Xpress%20SARS%20CoV-2/Fact%20 Sheets/302-3801%57KGXD-ERK-4%20PATIENT%20FACT%20SHEET.pdf Performing Laboratory:[facility] [place] [address] [facility])2019-10-07 17:24:00* Test Item Value Reference Range Interpretation Comments SARS-COV2/RT-PCR (test code = 5600491) Not Detected Not Detected, N egative SARS-COV-2 PERFORMING LAB (test code = 7351470) [facility] Negative results do not preclude SARS-CoV-2 infection and should not be used as the sole basis for patient management decisions. Negative results must be combin ed with clinical observations, patient history, and epidemiological information. A false negative result may occur if a specimen is improperly collected, transp orted or handled.The limit of detection for this assay is 250 copies/mL.This [facility] CoV-2 test is a rapid, real-time RT-PCR test intended for the qualitative dete ction of nucleic acid from SARS-CoV-2 in a nasopharyngeal swab specimen collecte d from individuals suspected of COVID-19 by their healthcare provider.This test has not been Food and Drug Administration (FDA) cleared or approved and has been authorized by FDA under an Emergency Use Authorization (EUA). This EUA will be effective until the declaration that circumstances exist justifying the authoriz ation of the emergency use of in vitro diagnostic tests for detection and/or syed gnosis of COVID-19 is terminated under Section 564(b)(2) of the Act or the EUA i s revoked under Section 564(g) of the Act.Fact Sheet for Healthcare Providers:ht tps://www.[facility]/Documents/Xpert%20Xpress%20SARS%20CoV-2/Fact%20Sheets/302- 3802%85YAYT-SMB-1%20HEALTHCARE%20PROVIDERS%20FACT%20SHEET.pdfFact Sheet for Heal thcare Patients:https://www.[facility]/Documents/Xpert%20Xpress%20SARS%20CoV-2/ Fact%20Sheets/3023801%15RVBY-XOD-0%20PATIENT%20FACT%20SHEET.pdfPerforming Labor atory:[facility], [place] [address]Z-ocij Natriuretic Factor (BNP)2019-10-07 16:21:00* Test Item Value Reference Range Interpretation Comments BNP (test code = 83173-5) 166 pg/mL 0-100 H LOLA (test code = LOLA) Window Glazier Helper ID - BS Lab Interpretation (test code = 13191-2) [facility]normal [facility] (BNP)2019-10-07 16:21:00 * Test Item Value Reference Range Interpretation Comments B-TYPE NATRIURETIC PEPTIDE (BEAKER) (test code = 700) 166 pg/mL 0-100 H Window Glazier Helper ID - BSTROPONIN [id number] 16:20:00* Test Item Value Reference Range Interpretation Comments TROPONIN I (BEAKER) (test code = 397) 0.02 ng/mL 0.00-0.03 Troponin I (TnI) levels must be interpreted in the context of the presenting sym ptoms and the clinical findings. Elevated TnI levels indicate myocardial damage, but are not specific for ischemic heart disease. Elevated TnI levels are seen in patients with other cardiac conditions (including myocarditis and congestive h eart failure), and slight TnI elevations occur in patients with other conditions , including sepsis, renal failure, acidosis, acute neurological disease, and per sistent tachyarrhythmia.Window Glazier Helper ID - [id number] 16:14:00* Test Item Value Reference Range Interpretation Comments MAGNESIUM (BEAKER) (test code = 627) 1.8 mg/dL 1.6-2.6 Window Glazier Helper ID - BSBASIC METABOLIC [id number] 16:14:00* Test Item Value Reference Range Interpretation Comments SODIUM (BEAKER) (test code = 381) 136 meq/L 136-145 POTASSIUM (BEAKER) (test code = 379) 4.0 meq/L 3.5-5.1 CHLORIDE (BEAKER) (test code = 382) 101 meq/L 98-107 CO2 (BEAKER) (test code = 355) 27 meq/L 22-29 BLOOD UREA NITROGEN (BEAKER) (test code = 354) 11 mg/dL 7-21 CREATININE (BEAKER) (test code = 358) 0.79 mg/dL 0.57-1.25 GLUCOSE RANDOM (BEAKER) (test code = 652) 334 mg/dL 70-105 H CALCIUM (BEAKER) (test code = 697) 9.3 mg/dL 8.4-10.2 EGFR (BEAKER) (test code = 1092) 99 mL/min/1.73 sq m ESTIMATED GFR IS NOT ACCURATE CREATININE CLEARANCE IN PREDICTING GLOMERULAR FILTRATION RATE. ESTIMATED GFR IS NOT APPLICABLE FOR DIALYSIS PATIENTS. Window Glazier Helper ID - BSPT/[id number] 16:10:00* Test Item Value Reference Range Interpretation Comments PROTIME (BEAKER) (test code = 759) 14.9 seconds 11.9-14.2 H INR (BEAKER) (test code = 370) 1.2 <=5.9 PARTIAL THROMBOPLASTIN TIME (BEAKER) (test code = 760) 29.0 seconds 22.5-36.0 Effective 09/16/2018: PT Reference Range ChangeNew: 11.9-14.2 Previous: 11.7-14. 7RECOMMENDED COUMADIN/WARFARIN INR THERAPY RANGESSTANDARD DOSE: 2.0-3.0 Include s: PROPHYLAXIS for venous thrombosis, systemic embolization; TREATMENT for venou s thrombosis and/or pulmonary embolus.HIGH RISK: Target INR is 2.5-3.5 for patie nts wiht mechanical heart valves.CBC W/PLT COUNT & AUTO [id number] 15:53:00* Test Item Value Reference Range Interpretation Comments WHITE BLOOD CELL COUNT (BEAKER) (test code = 775) 7.4 K/ L 3.5- 10.5 RED BLOOD CELL COUNT (BEAKER) (test code = 761) 4.21 M/ L 4.63-6 .08 L HEMOGLOBIN (BEAKER) (test code = 410) 12.7 GM/DL 13.7-17.5 L HEMATOCRIT (BEAKER) (test code = 411) 38.7 % 40.1-51.0 L MEAN CORPUSCULAR VOLUME (BEAKER) (test code = 753) 91.9 fL 79. 0-92.2 MEAN CORPUSCULAR HEMOGLOBIN (BEAKER) (test code = 751) 30.2 pg 25.7-32.2 MEAN CORPUSCULAR HEMOGLOBIN CONC (BEAKER) (test code = 752) 32.8 GM/DL 32.3-36.5 RED CELL DISTRIBUTION WIDTH (BEAKER) (test code = 412) 13.8 % 11.6-14.4 PLATELET COUNT (BEAKER) (test code = 756) 422 K/CU MM 150-450 MEAN PLATELET VOLUME (BEAKER) (test code = 754) 9.1 fL 9.4-12 .4 L NUCLEATED RED BLOOD CELLS (BEAKER) (test code = 413) 0 /100 WBC 0 -0 NEUTROPHILS RELATIVE PERCENT (BEAKER) (test code = 429) 67 % LYMPHOCYTES RELATIVE PERCENT (BEAKER) (test code = 430) 22 % MONOCYTES RELATIVE PERCENT (BEAKER) (test code = 431) 7 % EOSINOPHILS RELATIVE PERCENT (BEAKER) (test code = 432) 2 % BASOPHILS RELATIVE PERCENT (BEAKER) (test code = 437) 1 % NEUTROPHILS ABSOLUTE COUNT (BEAKER) (test code = 670) 4.93 K/ L 1.78-5.38 LYMPHOCYTES ABSOLUTE COUNT (BEAKER) (test code = 414) 1.63 K/ L 1.32-3.57 MONOCYTES ABSOLUTE COUNT (BEAKER) (test code = 415) 0.53 K/ L 0. 30-0.82 EOSINOPHILS ABSOLUTE COUNT (BEAKER) (test code = 416) 0.14 K/ L 0.04-0.54 BASOPHILS ABSOLUTE COUNT (BEAKER) (test code = 417) 0.09 K/ L 0. 01-0.08 H IMMATURE GRANULOCYTES-RELATIVE PERCENT (BEAKER) (test code = 2801) 0 % 0-1 RAD, CHEST, 1 VIEW, NON [id number] 15:28:00Reason for exam:->sobShould this be performed at the bedside?->YesFINAL REPORT CLINICAL HISTORY: sob TECHNIQUE: 1 view of the chest. COMPARISON: 09/25/2019 IMPRESSION: There are no focal infiltrates or effusions. The cardiomediastinal silhouette is magnified by technique with sternotomy wires. Signed: Olayinka Acosta MDReport Verified Date/Time: 10/07/2019 15:28:20 Reading Location: [facility] Reading Room chest 1 view portable / [id number] 15:28:00 Interface, External Ris In - 10/07/2019 3:30 PM CDTFINAL REPORT PATIENT ID: [id number] CLINICAL HISTORY: sob TECHNIQUE: 1 view of the chest. COMPARISON: 020 IMPRESSION: There are no focal infiltrates or effusions. The cardiomediastin al silhouette is magnified by technique with sternotomy wires. Signed: Olayinka Acosta MDRpastor Verified Date/Time: 10/07/2019 15:28:20 Reading Location: [facility] Reading [facility] 2019-09-26 12:17:00* Test Item Value Reference Range Interpretation Comments POC-GLUCOSE METER (BEAKER) (test code = 1538) 118 mg/dL 70-110 H : TESTED AT [address], [address]: Window Glazier Helper/Financial Accounting Manager ID = [id number] for ZULEMA GUNTER [employer] 2D [id number] 10:34:14Ejection FractionSLEH ECHO HEARTLAB MKCKESSON CPACSInterface, External Ris In - 09/26/2019 10:34 AM CDTTransthoracic Echocardiography Report (TTE) Demographics Patient Name ARACELI MOTTA Date of Study 09/24/2019 Gender Male Visit Number [id number] Race Unknown Room Number 1042 Number Date of 1955 Referring Physician Kortney Nevarez Age 63 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 Amount - 3 mlHeight: 72 inches Weight: 108.86 kg (240 lbs) BSA: 2.3 m^2 BMI: 32.55 kg/m^2HR: 85 bpm BP: 158/81 mmHg Summary Technically difficult due to body habitus. The LV is partially visualized with IV contrast agent on apical views. The distal septum and apex appear akintic. the other segments have borderline normal systolic function. at least mild to moderately decreased LVEF by q ualitative assessment, likely in the range of 40%. Mild concentric LV hypertroph y. Technically limited exam. Signature Findings Left Technically difficult due to body habitus. Ventricle The LV is partially visualized with IV contrast agent on apical views. The distal septum and apex appear a kintic. the other segments have borderline normal systolic function . at least mild to moderately decreased LVEF by qualitative assessm ent, likely in the range of 40%. Mild concentric LV h ypertrophy. Left Atrium indeterminate Right RV is not well visualized. Ventricle Right Atrium RA size is indeterminate (not well seen). Aortic Valve Mild AoV cusp thickening. normal function Mitral Valve Mild MV leaflet thicken ing. No evidence of mitral regurgitation. Tricuspid Not well vi sualized Valve Pulmonic PV is not well visualized. Valve Aorta Aort ic root size (SInus of Valsalva diameter) is normal . Pericardium No significa nt pericardial effusion is visualized. Chambers/Structures Left Atrium LA Volum e: 82.4 ml LA Area: 25.23 cm^2 LA Vol. Index: 36 ml/m^2 Le ft Ventricle LVIDd: 4.72 cm LVIDs: 2.79 cm LV Septum Diastolic: 1.42 cm LV PW D iastolic: 1.36 cm LV FS: 40.9 % Aorta Ao Root S of Va l.: 3.14 cm [facility] [id number] 07:03:00* Test Item Value Reference Range Interpretation Comments POC-GLUCOSE METER (BEAKER) (test code = 1538) 134 mg/dL 70-110 H : TESTED AT [place] [id number] [facility], [address]: Window Glazier Helper/Financial Accounting Manager ID = [id number] for VENTURA LOCK [id number] 05:48:00* Test Item Value Reference Range Interpretation Comments MAGNESIUM (BEAKER) (test code = 627) 1.8 mg/dL 1.6-2.6 Window Glazier Helper ID - DURGA MBASIC METABOLIC [id number] 05:48:00* Test Item Value Reference Range Interpretation Comments SODIUM (BEAKER) (test code = 381) 137 meq/L 136-145 POTASSIUM (BEAKER) (test code = 379) 3.6 meq/L 3.5-5.1 CHLORIDE (BEAKER) (test code = 382) 103 meq/L 98-107 CO2 (BEAKER) (test code = 355) 27 meq/L 22-29 BLOOD UREA NITROGEN (BEAKER) (test code = 354) 10 mg/dL 7-21 CREATININE (BEAKER) (test code = 358) 0.62 mg/dL 0.57-1.25 GLUCOSE RANDOM (BEAKER) (test code = 652) 122 mg/dL 70-105 H CALCIUM (BEAKER) (test code = 697) 8.4 mg/dL 8.4-10.2 EGFR (BEAKER) (test code = 1092) 131 mL/min/1.73 sq m ESTIMATED GFR IS NOT ACCURATE CREATININE CLEARANCE IN PREDICTING GLOMERULAR FILTRATION RATE. ESTIMATED GFR IS NOT APPLICABLE FOR DIALYSIS PATIENTS. Window Glazier Helper ID - DURGA MCBC (Hemogram only)2019-09-26 05:02:00* Test Item Value Reference Range Interpretation Comments WBC (test code = 6690-2) 8.9 3.5- 10.5 K/L RBC (test code = 789-8) 3.64 4.63- 6.08 M/L L MCHC (test code = 786-4) 33.9 32.3- 36.5 GM/DL L Hematocrit (test code = 4544-3) 33.3 % 40.1-51 L MCV (test code = 787-2) 91.5 fL 79-92.2 MCH (test code = 785-6) 31.0 pg 25.7-32.2 RDW (test code = 788-0) 13.3 % 11.6-14.4 Platelets (test code = 777-3) 259 150- 450 K/CU MM MPV (test code = 08381-8) 9.8 fL 9.4-12.4 nRBC (test code = 413) 0 0- 0 /100 WBC Lab Interpretation (test code = 45157-8) Abnormal [facility] (HEMOGRAM ONLY)2019-09-26 05:02:00* Test Item Value Reference Range Interpretation Comments WHITE BLOOD CELL COUNT (BEAKER) (test code = 775) 8.9 K/ L 3.5- 10.5 RED BLOOD CELL COUNT (BEAKER) (test code = 761) 3.64 M/ L 4.63-6 .08 L HEMOGLOBIN (BEAKER) (test code = 410) 11.3 GM/DL 13.7-17.5 L HEMATOCRIT (BEAKER) (test code = 411) 33.3 % 40.1-51.0 L MEAN CORPUSCULAR VOLUME (BEAKER) (test code = 753) 91.5 fL 79. 0-92.2 MEAN CORPUSCULAR HEMOGLOBIN (BEAKER) (test code = 751) 31.0 pg 25.7-32.2 MEAN CORPUSCULAR HEMOGLOBIN CONC (BEAKER) (test code = 752) 33.9 GM/DL 32.3-36.5 RED CELL DISTRIBUTION WIDTH (BEAKER) (test code = 412) 13.3 % 11.6-14.4 PLATELET COUNT (BEAKER) (test code = 756) 259 K/CU MM 150-450 MEAN PLATELET VOLUME (BEAKER) (test code = 754) 9.8 fL 9.4-12 .4 NUCLEATED RED BLOOD CELLS (BEAKER) (test code = 413) 0 /100 WBC 0 -0 POCT-GLUCOSE [id number] 21:27:00* Test Item Value Reference Range Interpretation Comments POC-GLUCOSE METER (BEAKER) (test code = 1538) 129 mg/dL 70-110 H : TESTED AT [facility] [address] [facility], [address]: Window Glazier Helper/Financial Accounting Manager ID = [id number] for BARBIE HOOVER POCT-GLUCOSE [id number] 17:09:00* Test Item Value Reference Range Interpretation Comments POC-GLUCOSE METER (BEAKER) (test code = 1538) 163 mg/dL 70-110 H : TESTED AT [facility] [address] [facility], [address]: Window Glazier Helper/Financial Accounting Manager ID = [id number] for VENTURA LOCK RAD, ABDOMEN/KUB, 1 VIEW [id number] 16:44:00Reason for exam:->NAusea, abdominal distention, R/O post op ileus.Should this be performed at the bedside?->YesFINAL REPORT TECHNIQUE: Frontal views of the abdomen. INDICATION: 63-year-old man with nausea and abdominal pain. COMPARISON: None. IMPRESSION:Nonobstructive bowel gas pattern. Bones and soft tissues are unremarkable. Signed: Tia Abdalla MDReport Verified Date/Time: 09/25/2019 16:44:46 Reading Location: [address] Body Reading Room abdomen / KUB 1 [id number] 16:44:00Interface, External Ris In - 09/25/2019 4:46 PM CDTFINAL REPORT TECHNIQUE: Frontal views of the abdomen. INDICATION: 63-year-old man with nausea and abdominal pain. COMPARISON: None. IMPRESSION:Nonobstructive bowel gas pattern. Bones and soft tissues are unremarkable. Signed: Tia Abdalla MDReport Verified Date/Time: 09/25/2019 16:44:46 Reading Location: [facility] C013Y CT Body Reading [facility] [id number] 12:25:00* Test Item Value Reference Range Interpretation Comments POC-GLUCOSE METER (BEAKER) (test code = 1538) 172 mg/dL 70-110 H : TESTED AT [facility] [address] [facility], [address]: Window Glazier Helper/Financial Accounting Manager ID = [id number] for VENTURA LOCK POCT-GLUCOSE [id number] 07:26:00* Test Item Value Reference Range Interpretation Comments POC-GLUCOSE METER (BEAKER) (test code = 1538) 131 mg/dL 70-110 H : TESTED AT [facility] [address] [facility], [address]: Window Glazier Helper/Financial Accounting Manager ID = [id number] for VENTURA LOCK RAD, CHEST, 1 VIEW, NON [id number] 06:43:00Reason for exam:->s/p ACBShould this be performed at the bedside?->YesFINAL REPORT CLINICAL INDICATION: Postop Comparison: 09/24/2019 The cardiomediastinal contours are stable. Central pulmonary vascular prominence and bilateral parenchymal and pleural opacities are unchanged. There is no pneumothorax. Signed: Geovanny Doyle MDReport Verified Date/Time: 09/25/2019 06:43:39 [id number] 05:11:00* Test Item Value Reference Range Interpretation Comments Phosphorus (test code = 2777-1) 2.2 mg/dL 2.3-4.7 L LOLA (test code = LOLA) Window Glazier Helper ID - LINDSAY W Lab Interpretation (test code = 24603-1) Abnormal [facility] [id number] 05:11:00* Test Item Value Reference Range Interpretation Comments PHOSPHORUS (BEAKER) (test code = 604) 2.2 mg/dL 2.3-4.7 L Window Glazier Helper ID - LINDSAY [id number] 05:11:00* Test Item Value Reference Range Interpretation Comments MAGNESIUM (BEAKER) (test code = 627) 1.8 mg/dL 1.6-2.6 Window Glazier Helper ID - LINDSAY WBASIC METABOLIC [id number] 05:11:00* Test Item Value Reference Range Interpretation Comments SODIUM (BEAKER) (test code = 381) 134 meq/L 136-145 L POTASSIUM (BEAKER) (test code = 379) 3.2 meq/L 3.5-5.1 L CHLORIDE (BEAKER) (test code = 382) 101 meq/L 98-107 CO2 (BEAKER) (test code = 355) 24 meq/L 22-29 BLOOD UREA NITROGEN (BEAKER) (test code = 354) 11 mg/dL 7-21 CREATININE (BEAKER) (test code = 358) 0.55 mg/dL 0.57-1.25 L GLUCOSE RANDOM (BEAKER) (test code = 652) 121 mg/dL 70-105 H CALCIUM (BEAKER) (test code = 697) 8.2 mg/dL 8.4-10.2 L EGFR (BEAKER) (test code = 1092) 151 mL/min/1.73 sq m ESTIMATED GFR IS NOT ACCURATE CREATININE CLEARANCE IN PREDICTING GLOMERULAR FILTRATION RATE. ESTIMATED GFR IS NOT APPLICABLE FOR DIALYSIS PATIENTS. Window Glazier Helper ID - LINDSAY WCBC W/PLT COUNT & AUTO [id number] 04:34:00* Test Item Value Reference Range Interpretation Comments WHITE BLOOD CELL COUNT (BEAKER) (test code = 775) 9.7 K/ L 3.5- 10.5 RED BLOOD CELL COUNT (BEAKER) (test code = 761) 3.56 M/ L 4.63-6 .08 L HEMOGLOBIN (BEAKER) (test code = 410) 11.1 GM/DL 13.7-17.5 L HEMATOCRIT (BEAKER) (test code = 411) 32.5 % 40.1-51.0 L MEAN CORPUSCULAR VOLUME (BEAKER) (test code = 753) 91.3 fL 79. 0-92.2 MEAN CORPUSCULAR HEMOGLOBIN (BEAKER) (test code = 751) 31.2 pg 25.7-32.2 MEAN CORPUSCULAR HEMOGLOBIN CONC (BEAKER) (test code = 752) 34.2 GM/DL 32.3-36.5 RED CELL DISTRIBUTION WIDTH (BEAKER) (test code = 412) 13.2 % 11.6-14.4 PLATELET COUNT (BEAKER) (test code = 756) 227 K/CU MM 150-450 MEAN PLATELET VOLUME (BEAKER) (test code = 754) 9.8 fL 9.4-12 .4 NUCLEATED RED BLOOD CELLS (BEAKER) (test code = 413) 0 /100 WBC 0 -0 NEUTROPHILS RELATIVE PERCENT (BEAKER) (test code = 429) 77 % LYMPHOCYTES RELATIVE PERCENT (BEAKER) (test code = 430) 11 % MONOCYTES RELATIVE PERCENT (BEAKER) (test code = 431) 11 % EOSINOPHILS RELATIVE PERCENT (BEAKER) (test code = 432) 1 % BASOPHILS RELATIVE PERCENT (BEAKER) (test code = 437) 0 % NEUTROPHILS ABSOLUTE COUNT (BEAKER) (test code = 670) 7.48 K/ L 1.78-5.38 H LYMPHOCYTES ABSOLUTE COUNT (BEAKER) (test code = 414) 1.03 K/ L 1.32-3.57 L MONOCYTES ABSOLUTE COUNT (BEAKER) (test code = 415) 1.06 K/ L 0. 30-0.82 H EOSINOPHILS ABSOLUTE COUNT (BEAKER) (test code = 416) 0.06 K/ L 0.04-0.54 BASOPHILS ABSOLUTE COUNT (BEAKER) (test code = 417) 0.04 K/ L 0. 01-0.08 IMMATURE GRANULOCYTES-RELATIVE PERCENT (BEAKER) (test code = 2801) 1 % 0-1 POCT-GLUCOSE [id number] 21:27:00* Test Item Value Reference Range Interpretation Comments POC-GLUCOSE METER (BEAKER) (test code = 1538) 121 mg/dL 70-110 H : TESTED AT [address], [address]: Window Glazier Helper/Financial Accounting Manager ID = [id number] for BARBIE HOOVER POCT-GLUCOSE [id number] 16:51:00* Test Item Value Reference Range Interpretation Comments POC-GLUCOSE METER (BEAKER) (test code = 1538) 183 mg/dL 70-110 H : TESTED AT [address], [address]: Window Glazier Helper/Financial Accounting Manager ID = [id number] for CHAUDHARY, ERANDY POCT-GLUCOSE [id number] 11:59:00* Test Item Value Reference Range Interpretation Comments POC-GLUCOSE METER (BEAKER) (test code = 1538) 120 mg/dL 70-110 H : TESTED AT [address], [address]: Window Glazier Helper/Financial Accounting Manager ID = [id number] for CHAUDHARY, ERANDY RAD, CHEST, 1 VIEW, NON [id number] 09:20:00Reason for exam:->s/p ACBShould this be performed at the bedside?->YesFINAL REPORT RAD, CHEST, 1 VIEW, NON DEPT INDICATION: s/p ACB COMPARISON: Prior day's exam FINDINGS: Portable frontal view of the chest. IMPRESSION: Support Lines: Right-sided central catheter tip overlies the SVC Lungs and pleura: Bibasilar atelectasis No pneumothorax.Heart and mediastinum: Stable contours. Stable surgical changes.Additional findings: None. Signed: Silvana Varma Verified Date/Time: 09/24/2019 09:20:33 Reading Location: [facility] Radiology Reading Room -GLUCOSE [id number] 07:24:00* Test Item Value Reference Range Interpretation Comments POC-GLUCOSE METER (BEAKER) (test code = 1538) 124 mg/dL 70-110 H : TESTED AT [facility] [address] [place] [address], [address]: Window Glazier Helper/Financial Accounting Manager ID = [id number] for CELIA CHAUDHARY CBC W/PLT COUNT & AUTO [id number] 06:23:00* Test Item Value Reference Range Interpretation Comments WHITE BLOOD CELL COUNT (BEAKER) (test code = 775) 11.0 K/ L 3.5- 10.5 H RED BLOOD CELL COUNT (BEAKER) (test code = 761) 3.83 M/ L 4.63-6 .08 L HEMOGLOBIN (BEAKER) (test code = 410) 12.0 GM/DL 13.7-17.5 L HEMATOCRIT (BEAKER) (test code = 411) 35.7 % 40.1-51.0 L MEAN CORPUSCULAR VOLUME (BEAKER) (test code = 753) 93.2 fL 79. 0-92.2 H MEAN CORPUSCULAR HEMOGLOBIN (BEAKER) (test code = 751) 31.3 pg 25.7-32.2 MEAN CORPUSCULAR HEMOGLOBIN CONC (BEAKER) (test code = 752) 33.6 GM/DL 32.3-36.5 RED CELL DISTRIBUTION WIDTH (BEAKER) (test code = 412) 13.2 % 11.6-14.4 PLATELET COUNT (BEAKER) (test code = 756) 186 K/CU MM 150-450 MEAN PLATELET VOLUME (BEAKER) (test code = 754) 10.2 fL 9.4-12 .4 NUCLEATED RED BLOOD CELLS (BEAKER) (test code = 413) 0 /100 WBC 0 -0 NEUTROPHILS RELATIVE PERCENT (BEAKER) (test code = 429) 81 % LYMPHOCYTES RELATIVE PERCENT (BEAKER) (test code = 430) 8 % MONOCYTES RELATIVE PERCENT (BEAKER) (test code = 431) 10 % EOSINOPHILS RELATIVE PERCENT (BEAKER) (test code = 432) 0 % BASOPHILS RELATIVE PERCENT (BEAKER) (test code = 437) 0 % NEUTROPHILS ABSOLUTE COUNT (BEAKER) (test code = 670) 8.91 K/ L 1.78-5.38 H LYMPHOCYTES ABSOLUTE COUNT (BEAKER) (test code = 414) 0.87 K/ L 1.32-3.57 L MONOCYTES ABSOLUTE COUNT (BEAKER) (test code = 415) 1.11 K/ L 0. 30-0.82 H EOSINOPHILS ABSOLUTE COUNT (BEAKER) (test code = 416) 0.01 K/ L 0.04-0.54 L BASOPHILS ABSOLUTE COUNT (BEAKER) (test code = 417) 0.03 K/ L 0. 01-0.08 IMMATURE GRANULOCYTES-RELATIVE PERCENT (BEAKER) (test code = 2801) 1 % 0-1 [id number] 06:08:00* Test Item Value Reference Range Interpretation Comments PHOSPHORUS (BEAKER) (test code = 604) 2.3 mg/dL 2.3-4.7 Window [employer] Helper ID - LAURAAYA [id number] 06:08:00* Test Item Value Reference Range Interpretation Comments MAGNESIUM (BEAKER) (test code = 627) 2.0 mg/dL 1.6-2.6 Window [employer] Helper ID - PIAYA LBASIC METABOLIC [id number] 06:08:00* Test Item Value Reference Range Interpretation Comments SODIUM (BEAKER) (test code = 381) 137 meq/L 136-145 POTASSIUM (BEAKER) (test code = 379) 3.5 meq/L 3.5-5.1 CHLORIDE (BEAKER) (test code = 382) 101 meq/L 98-107 CO2 (BEAKER) (test code = 355) 25 meq/L 22-29 BLOOD UREA NITROGEN (BEAKER) (test code = 354) 12 mg/dL 7-21 CREATININE (BEAKER) (test code = 358) 0.63 mg/dL 0.57-1.25 GLUCOSE RANDOM (BEAKER) (test code = 652) 136 mg/dL 70-105 H CALCIUM (BEAKER) (test code = 697) 8.7 mg/dL 8.4-10.2 EGFR (BEAKER) (test code = 1092) 129 mL/min/1.73 sq m ESTIMATED GFR IS NOT ACCURATE CREATININE CLEARANCE IN PREDICTING GLOMERULAR FILTRATION RATE. ESTIMATED GFR IS NOT APPLICABLE FOR DIALYSIS PATIENTS. Window [employer] Helper ID - PIAYA LPOCT-GLUCOSE [id number] 22:19:00* Test Item Value Reference Range Interpretation Comments POC-GLUCOSE METER (BEAKER) (test code = 1538) 131 mg/dL 70-110 H : TESTED AT [address], [address]: Window [employer] Helper/Financial Accounting Manager ID = [id number] for Cornel Yvette POCT-GLUCOSE [id number] 16:36:00* Test Item Value Reference Range Interpretation Comments POC-GLUCOSE METER (BEAKER) (test code = 1538) 122 mg/dL 70-110 H : TESTED AT [place] [id number] [facility], [address]: Window [employer] Helper/Financial Accounting Manager ID = [id number] for Devorah Mercado POCT-GLUCOSE [id number] 11:57:00* Test Item Value Reference Range Interpretation Comments POC-GLUCOSE METER (BEAKER) (test code = 1538) 139 mg/dL 70-110 H : TESTED AT [place] [id number] [facility], [address]: Window [employer] Helper/Financial Accounting Manager ID = [id number] for Devorah Mercado [id number] 11:57:00* Test Item Value Reference Range Interpretation Comments MAGNESIUM (BEAKER) (test code = 627) 2.1 mg/dL 1.6-2.6 Window [employer] Helper ID - AAHAMIDBASIC METABOLIC [id number] 11:57:00* Test Item Value Reference Range Interpretation Comments SODIUM (BEAKER) (test code = 381) 136 meq/L 136-145 POTASSIUM (BEAKER) (test code = 379) 4.0 meq/L 3.5-5.1 CHLORIDE (BEAKER) (test code = 382) 104 meq/L 98-107 CO2 (BEAKER) (test code = 355) 25 meq/L 22-29 BLOOD UREA NITROGEN (BEAKER) (test code = 354) 9 mg/dL 7-21 CREATININE (BEAKER) (test code = 358) 0.56 mg/dL 0.57-1.25 L GLUCOSE RANDOM (BEAKER) (test code = 652) 155 mg/dL 70-105 H CALCIUM (BEAKER) (test code = 697) 8.5 mg/dL 8.4-10.2 EGFR (BEAKER) (test code = 1092) 148 mL/min/1.73 sq m ESTIMATED GFR IS NOT ACCURATE CREATININE CLEARANCE IN PREDICTING GLOMERULAR FILTRATION RATE. ESTIMATED GFR IS NOT APPLICABLE FOR DIALYSIS PATIENTS. Window [employer] Helper ID - MAYRACalcium, [id number] 11:37:00* Test Item Value Reference Range Interpretation Comments Calcium, Ion (test code = 1994-3) 1.09 mmol/L 1.12-1.27 L pH, Blood (test code = 05877-3) 7.46 LOLA (test code = LOLA) Check serum Ionized Calcium level after 4 hours after IV Calcium replacement. Lab Interpretation (test code = 87468-2) [facility]normal [facility] [id number] 11:37:00* Test Item Value Reference Range Interpretation Comments CALCIUM IONIZED (BEAKER) (test code = 698) 1.09 mmol/L 1.12-1.27 L PH, BLOOD (BEAKER) (test code = 1810) 7.46 Check serum Ionized Calcium level after 4 hours after IV Calcium replacement. RAD, CHEST, 1 VIEW, NON [id number] 11:05:00Reason for exam:->chest tubeShould this be performed at the bedside?->YesFINAL REPORT RAD, CHEST, 1 VIEW, NON DEPT INDICATION: chest tube COMPARISON: Prior day's exam FINDINGS: Portable frontal view of the chest. IMPRESSION: Support Lines: Stable. Lungs and pleura: Unchanged airspace and pleural opacities. No pneumothorax.Heart and mediastinum: Stable contours. Stable surgical changes.Additional findings: None. Signed: Silvana Varma Verified Date/Time: 09/23/2019 11:05:22 Reading Location: [facility] Room Electronically signed by: SILVANA VARMA MD on 07/2019 11:05 AM POCT-GLUCOSE [id number] 08:26:00* Test Item Value Reference Range Interpretation Comments POC-GLUCOSE METER (BEAKER) (test code = 1538) 129 mg/dL 70-110 H : TESTED AT [facility] [address] [facility], [address]: Window [employer]ier Helper/Financial Accounting Manager ID = [id number] for Devorah Mercado [id number] 04:37:00* Test Item Value Reference Range Interpretation Comments PHOSPHORUS (BEAKER) (test code = 604) 2.2 mg/dL 2.3-4.7 L Window [employer] Helper ID - [id number] 04:37:00* Test Item Value Reference Range Interpretation Comments MAGNESIUM (BEAKER) (test code = 627) 1.8 mg/dL 1.6-2.6 Window [employer] Helper ID - LABASIC METABOLIC [id number] 04:37:00* Test Item Value Reference Range Interpretation Comments SODIUM (BEAKER) (test code = 381) 137 meq/L 136-145 POTASSIUM (BEAKER) (test code = 379) 4.4 meq/L 3.5-5.1 CHLORIDE (BEAKER) (test code = 382) 107 meq/L 98-107 CO2 (BEAKER) (test code = 355) 24 meq/L 22-29 BLOOD UREA NITROGEN (BEAKER) (test code = 354) 12 mg/dL 7-21 CREATININE (BEAKER) (test code = 358) 0.60 mg/dL 0.57-1.25 GLUCOSE RANDOM (BEAKER) (test code = 652) 145 mg/dL 70-105 H CALCIUM (BEAKER) (test code = 697) 8.6 mg/dL 8.4-10.2 EGFR (BEAKER) (test code = 1092) 137 mL/min/1.73 sq m ESTIMATED GFR IS NOT ACCURATE CREATININE CLEARANCE IN PREDICTING GLOMERULAR FILTRATION RATE. ESTIMATED GFR IS NOT APPLICABLE FOR DIALYSIS PATIENTS. Window [employer] Helper ID - LACALCIUM, [id number] 04:20:00* Test Item Value Reference Range Interpretation Comments CALCIUM IONIZED (BEAKER) (test code = 698) 1.13 mmol/L 1.12-1.27 PH, BLOOD (BEAKER) (test code = 1810) 7.43 CBC W/PLT COUNT & AUTO [id number] 04:11:00* Test Item Value Reference Range Interpretation Comments WHITE BLOOD CELL COUNT (BEAKER) (test code = 775) 11.1 K/ L 3.5- 10.5 H RED BLOOD CELL COUNT (BEAKER) (test code = 761) 3.37 M/ L 4.63-6 .08 L HEMOGLOBIN (BEAKER) (test code = 410) 10.5 GM/DL 13.7-17.5 L HEMATOCRIT (BEAKER) (test code = 411) 31.9 % 40.1-51.0 L MEAN CORPUSCULAR VOLUME (BEAKER) (test code = 753) 94.7 fL 79. 0-92.2 H MEAN CORPUSCULAR HEMOGLOBIN (BEAKER) (test code = 751) 31.2 pg 25.7-32.2 MEAN CORPUSCULAR HEMOGLOBIN CONC (BEAKER) (test code = 752) 32.9 GM/DL 32.3-36.5 RED CELL DISTRIBUTION WIDTH (BEAKER) (test code = 412) 13.7 % 11.6-14.4 PLATELET COUNT (BEAKER) (test code = 756) 129 K/CU MM 150-450 L MEAN PLATELET VOLUME (BEAKER) (test code = 754) 10.8 fL 9.4-12 .4 NUCLEATED RED BLOOD CELLS (BEAKER) (test code = 413) 0 /100 WBC 0 -0 NEUTROPHILS RELATIVE PERCENT (BEAKER) (test code = 429) 78 % LYMPHOCYTES RELATIVE PERCENT (BEAKER) (test code = 430) 9 % MONOCYTES RELATIVE PERCENT (BEAKER) (test code = 431) 13 % EOSINOPHILS RELATIVE PERCENT (BEAKER) (test code = 432) 0 % BASOPHILS RELATIVE PERCENT (BEAKER) (test code = 437) 0 % NEUTROPHILS ABSOLUTE COUNT (BEAKER) (test code = 670) 8.60 K/ L 1.78-5.38 H LYMPHOCYTES ABSOLUTE COUNT (BEAKER) (test code = 414) 0.98 K/ L 1.32-3.57 L MONOCYTES ABSOLUTE COUNT (BEAKER) (test code = 415) 1.38 K/ L 0. 30-0.82 H EOSINOPHILS ABSOLUTE COUNT (BEAKER) (test code = 416) 0.02 K/ L 0.04-0.54 L BASOPHILS ABSOLUTE COUNT (BEAKER) (test code = 417) 0.03 K/ L 0. 01-0.08 IMMATURE GRANULOCYTES-RELATIVE PERCENT (BEAKER) (test code = 2801) 1 % 0-1 POCT-GLUCOSE [id number] 00:52:00* Test Item Value Reference Range Interpretation Comments POC-GLUCOSE METER (BEAKER) (test code = 1538) 136 mg/dL 70-110 H : TESTED AT [address], [address]: Window [employer] Helper/Financial Accounting Manager ID = [id number] for ALEJANDRINAJuly [id number] 20:01:00* Test Item Value Reference Range Interpretation Comments MAGNESIUM (BEAKER) (test code = 627) 1.9 mg/dL 1.6-2.6 Window [employer] Helper ID - [facility] METABOLIC [id number] 20:01:00* Test Item Value Reference Range Interpretation Comments SODIUM (BEAKER) (test code = 381) 136 meq/L 136-145 POTASSIUM (BEAKER) (test code = 379) 4.2 meq/L 3.5-5.1 CHLORIDE (BEAKER) (test code = 382) 108 meq/L 98-107 H CO2 (BEAKER) (test code = 355) 24 meq/L 22-29 BLOOD UREA NITROGEN (BEAKER) (test code = 354) 11 mg/dL 7-21 CREATININE (BEAKER) (test code = 358) 0.63 mg/dL 0.57-1.25 GLUCOSE RANDOM (BEAKER) (test code = 652) 172 mg/dL 70-105 H CALCIUM (BEAKER) (test code = 697) 8.5 mg/dL 8.4-10.2 EGFR (BEAKER) (test code = 1092) 129 mL/min/1.73 sq m ESTIMATED GFR IS NOT ACCURATE CREATININE CLEARANCE IN PREDICTING GLOMERULAR FILTRATION RATE. ESTIMATED GFR IS NOT APPLICABLE FOR DIALYSIS PATIENTS. Window [employer] Helper ID - BSCALCIUM, [id number] 19:49:00* Test Item Value Reference Range Interpretation Comments CALCIUM IONIZED (BEAKER) (test code = 698) 1.13 mmol/L 1.12-1.27 PH, BLOOD (BEAKER) (test code = 1810) 7.42 Hemoglobin and [id number] 19:48:00* Test Item Value Reference Range Interpretation Comments Hemoglobin (test code = 786-4) 10.9 13.7- 17.5 GM/DL L Hematocrit (test code = 4544-3) 32.6 % 40.1-51 L LOLA (test code = LOLA) Window [employer] Helper ID - [id number] Lab Interpretation (test code = 49163-9) Abnormal [facility]HEMOGLOB[facility] AND [id number] 19:48:00* Test Item Value Reference Range Interpretation Comments HEMOGLOBIN (BEAKER) (test code = 410) 10.9 GM/DL 13.7-17.5 L HEMATOCRIT (BEAKER) (test code = 411) 32.6 % 40.1-51.0 L Window [employer] Helper ID - [id number]-GLUCOSE [id number] 18:59:00* Test Item Value Reference Range Interpretation Comments POC-GLUCOSE METER (BEAKER) (test code = 1538) 163 mg/dL 70-110 H : TESTED AT [address], [address]: Window [employer] Helper/Financial Accounting Manager ID = [id number] for ANGELA HICKSA POCT-GLUCOSE [id number] 14:06:00* Test Item Value Reference Range Interpretation Comments POC-GLUCOSE METER (BEAKER) (test code = 1538) 120 mg/dL 70-110 H : TESTED AT [address], [address]: Window [employer] Helper/Financial Accounting Manager ID = [id number] for ELLEDU, CECILLE POCT-GLUCOSE [id number] 08:40:00* Test Item Value Reference Range Interpretation Comments POC-GLUCOSE METER (BEAKER) (test code = 1538) 109 mg/dL 70-110 : TESTED AT [address], [address]: Window [employer] Helper/Financial Accounting Manager ID = [id number] for ELLINGER, CECILLE HEMOGLOBIN AND [id number] 08:37:00* Test Item Value Reference Range Interpretation Comments HEMOGLOBIN (BEAKER) (test code = 410) 10.9 GM/DL 13.7-17.5 L HEMATOCRIT (BEAKER) (test code = 411) 32.6 % 40.1-51.0 L Window [employer] Helper ID - [id number] Acid, [id number] 06:58:00* Test Item Value Reference Range Interpretation Comments Lactate, Art (test code = 2874) 0.8 mmol/L 0.5-2.2 Specimen moderately hemolyzed LOLA (test code = LOLA) Window [employer] Helper ID - DURGA M Lab Interpretation (test code = 52864-7) Normal [facility] CenterLACT[facility]ID, [id number] 06:58:00* Test Item Value Reference Range Interpretation Comments LACTATE BLOOD ARTERIAL (2) (BEAKER) (test code = 2874) 0.8 mmol/L 0.5-2.2 Specimen moderately hemolyzed Window [employer] Helper ID - DURGA MPOCT-GLUCOSE [id number] 06:15:00* Test Item Value Reference Range Interpretation Comments POC-GLUCOSE METER (BEAKER) (test code = 1538) 118 mg/dL 70-110 H : TESTED AT [address], [address]: Window [employer] Helper/Financial Accounting Manager ID = [id number] for ABHINAV SIMMONS [id number] 04:29:00* Test Item Value Reference Range Interpretation Comments PHOSPHORUS (BEAKER) (test code = 604) 3.9 mg/dL 2.3-4.7 Window [employer] Helper ID - DURGA [id number] 04:29:00* Test Item Value Reference Range Interpretation Comments MAGNESIUM (BEAKER) (test code = 627) 2.0 mg/dL 1.6-2.6 Window [employer] Helper ID - DURGA MBASIC METABOLIC [id number] 04:29:00* Test Item Value Reference Range Interpretation Comments SODIUM (BEAKER) (test code = 381) 141 meq/L 136-145 POTASSIUM (BEAKER) (test code = 379) 4.4 meq/L 3.5-5.1 CHLORIDE (BEAKER) (test code = 382) 113 meq/L 98-107 H CO2 (BEAKER) (test code = 355) 23 meq/L 22-29 BLOOD UREA NITROGEN (BEAKER) (test code = 354) 12 mg/dL 7-21 CREATININE (BEAKER) (test code = 358) 0.63 mg/dL 0.57-1.25 GLUCOSE RANDOM (BEAKER) (test code = 652) 124 mg/dL 70-105 H CALCIUM (BEAKER) (test code = 697) 8.1 mg/dL 8.4-10.2 L EGFR (BEAKER) (test code = 1092) 129 mL/min/1.73 sq m ESTIMATED GFR IS NOT ACCURATE CREATININE CLEARANCE IN PREDICTING GLOMERULAR FILTRATION RATE. ESTIMATED GFR IS NOT APPLICABLE FOR DIALYSIS PATIENTS. Window [employer] Helper ID - DURGA MCBC (HEMOGRAM ONLY)2019-09-22 04:12:00* Test Item Value Reference Range Interpretation Comments WHITE BLOOD CELL COUNT (BEAKER) (test code = 775) 9.2 K/ L 3.5- 10.5 RED BLOOD CELL COUNT (BEAKER) (test code = 761) 3.59 M/ L 4.63-6 .08 L HEMOGLOBIN (BEAKER) (test code = 410) 10.7 GM/DL 13.7-17.5 L HEMATOCRIT (BEAKER) (test code = 411) 32.6 % 40.1-51.0 L MEAN CORPUSCULAR VOLUME (BEAKER) (test code = 753) 90.8 fL 79. 0-92.2 MEAN CORPUSCULAR HEMOGLOBIN (BEAKER) (test code = 751) 29.8 pg 25.7-32.2 MEAN CORPUSCULAR HEMOGLOBIN CONC (BEAKER) (test code = 752) 32.8 GM/DL 32.3-36.5 RED CELL DISTRIBUTION WIDTH (BEAKER) (test code = 412) 13.3 % 11.6-14.4 PLATELET COUNT (BEAKER) (test code = 756) 132 K/CU MM 150-450 L MEAN PLATELET VOLUME (BEAKER) (test code = 754) 10.3 fL 9.4-12 .4 NUCLEATED RED BLOOD CELLS (BEAKER) (test code = 413) 0 /100 WBC 0 -0 POCT-GLUCOSE [id number] 04:04:00* Test Item Value Reference Range Interpretation Comments POC-GLUCOSE METER (BEAKER) (test code = 1538) 119 mg/dL 70-110 H : TESTED AT [facility] [address] [place] [address], [address]: Window [employer] Helper/Financial Accounting Manager ID = [id number] for ABHINAV SIMMONS Oxygen saturation, [id number] 03:56:00* Test Item Value Reference Range Interpretation Comments O2 Saturation (Measured) (test code = 99508-8) 70.6 % [facility] CenterOXYGEN SATURATION, [id number] 03:56:00* Test Item Value Reference Range Interpretation Comments O2 SATURATION (MEASURED) (BEAKER) (test code = 1455) 70.6 % Blood gas, [id number] 03:54:00* Test Item Value Reference Range Interpretation Comments pH, Arterial (test code = 2744-1) 7.38 7.35-7.45 pCO2, Arterial (test code = 2019-8) 40 35- 45 mmHg pO2, Arterial (test code = 2703-7) 129 80- 90 mmHg H O2 Sat, Arterial (test code = 2708-6) 98.5 % 96-97 H HCO3, Arterial (test code = 1960-4) 23 mmol/L 21-29 Base Excess, Arterial (test code = 1925-7) -2.3 mmol/L -2-3 L Patient Temperature (test code = 8310-5) 37.2 C FIO2 (test code = 1819) 40 % Lab Interpretation (test code = 52428-0) Abnormal [facility] CenterBL[facility]AS, [id number] 03:54:00* Test Item Value Reference Range Interpretation Comments PH ARTERIAL (BEAKER) (test code = 383) 7.38 7.35-7.45 PCO2 ARTERIAL (BEAKER) (test code = 384) 40 mmHg 35-45 PO2 ARTERIAL (BEAKER) (test code = 385) 129 mmHg 80-90 H O2 SATURATION ARTERIAL (BEAKER) (test code = 386) 98.5 % 96.0 -97.0 H HCO3 ARTERIAL (BEAKER) (test code = 388) 23 mmol/L 21-29 BASE EXCESS ARTERIAL (BEAKER) (test code = 387) -2.3 mmol/L -2.0-3 .0 L PATIENT TEMPERATURE (BEAKER) (test code = 1818) 37.2 C FIO2 (BEAKER) (test code = 1819) 40.0 % CALCIUM, [id number] 03:54:00* Test Item Value Reference Range Interpretation Comments CALCIUM IONIZED (BEAKER) (test code = 698) 1.15 mmol/L 1.12-1.27 PH, BLOOD (BEAKER) (test code = 1810) 7.38 RAD, CHEST, 1 VIEW, NON [id number] 02:57:00while patient is intubated or has chest tubes.Reason for exam:->Status post CV SurgeryShould this be performed at the bedside?->YesFINAL REPORT RAD, CHEST, 1 VIEW, NON DEPT INDICATION: Status post CV Surgery COMPARISON: Prior day's exam FINDINGS: Portable frontal view of the chest. IMPRESSION: Support Lines: Extubation and removal of the previously seen enteric tube. Intra-aortic balloon pump superior marker terminates 6.3 cm below the superior aspect of the aortic knob. Lungs and pleura: Improved aeration of the right upper lung with persistent left infrahilar atelectasis small bilateral pleural effusions. No pneumothorax.Heart and mediastinum: Stable contours. Stable surgical changes.Additional findings: None. Signed: Blanca Lewis Verified Date/Time: 09/22/2019 02:57:08 -GLUCOSE [id number] 01:50:00* Test Item Value Reference Range Interpretation Comments POC-GLUCOSE METER (BEAKER) (test code = 1538) 115 mg/dL 70-110 H : TESTED AT [facility] [address] [facility], [address]: Window [employer] Helper/Financial Accounting Manager ID = [id number] for CHRISTOPHER ABRAHAM [id number] 00:12:00* Test Item Value Reference Range Interpretation Comments Potassium (test code = 2823-3) 4.6 meq/L 3.5-5.1 Specimen slightly hemolyzed LOLA (test code = LOLA) Window [employer] Helper ID - WAQAR L Lab Interpretation (test code = 11839-4) Normal [facility] Center[facility]OT[facility]SIUM2020-06-03 00:12:00* Test Item Value Reference Range Interpretation Comments POTASSIUM (BEAKER) (test code = 379) 4.6 meq/L 3.5-5.1 Specimen slightly hemolyzed Window [employer] Helper ID - WAQAR [id number] 23:38:00* Test Item Value Reference Range Interpretation Comments MAGNESIUM (BEAKER) (test code = 627) 2.3 mg/dL 1.6-2.6 Specimen slightly hemolyzed Window [employer] Helper ID - WAQAR LBLOOD GAS, [id number] 23:21:00* Test Item Value Reference Range Interpretation Comments PH ARTERIAL (BEAKER) (test code = 383) 7.41 7.35-7.45 PCO2 ARTERIAL (BEAKER) (test code = 384) 37 mmHg 35-45 PO2 ARTERIAL (BEAKER) (test code = 385) 117 mmHg 80-90 H O2 SATURATION ARTERIAL (BEAKER) (test code = 386) 98.2 % 96.0 -97.0 H HCO3 ARTERIAL (BEAKER) (test code = 388) 22 mmol/L 21-29 BASE EXCESS ARTERIAL (BEAKER) (test code = 387) -1.8 mmol/L -2.0-3 .0 PATIENT TEMPERATURE (BEAKER) (test code = 1818) 37.3 C FIO2 (BEAKER) (test code = 1819) 40.0 % POCT-GLUCOSE [id number] 23:20:00* Test Item Value Reference Range Interpretation Comments POC-GLUCOSE METER (BEAKER) (test code = 1538) 139 mg/dL 70-110 H : TESTED AT [address], [address]: Window [employer] Helper/Financial Accounting Manager ID = [id number] for QUIBLAT, PACO POCT-GLUCOSE [id number] 23:11:00* Test Item Value Reference Range Interpretation Comments POC-GLUCOSE METER (BEAKER) (test code = 1538) 157 mg/dL 70-110 H : TESTED AT [place] [id number] [facility], [address]: Window [employer]ier Helper/Financial Accounting Manager ID = [id number] for QUIBLAT, PACO BLOOD GAS, [id number] 21:20:00* Test Item Value Reference Range Interpretation Comments PH ARTERIAL (BEAKER) (test code = 383) 7.42 7.35-7.45 PCO2 ARTERIAL (BEAKER) (test code = 384) 34 mmHg 35-45 L PO2 ARTERIAL (BEAKER) (test code = 385) 79 mmHg 80-90 L O2 SATURATION ARTERIAL (BEAKER) (test code = 386) 96.2 % 96.0 -97.0 HCO3 ARTERIAL (BEAKER) (test code = 388) 21 mmol/L 21-29 BASE EXCESS ARTERIAL (BEAKER) (test code = 387) -2.6 mmol/L -2.0-3 .0 L PATIENT TEMPERATURE (BEAKER) (test code = 1818) 36.5 C FIO2 (BEAKER) (test code = 1819) 40.0 % LACTIC ACID, [id number] 20:29:00* Test Item Value Reference Range Interpretation Comments LACTATE BLOOD ARTERIAL (2) (BEAKER) (test code = 2874) 1.5 mmol/L 0.5-2.2 Specimen slightly hemolyzed Window [employer] Helper ID - BSHGB/HCT (H&H)-Stat [id number] 20:06:00* Test Item Value Reference Range Interpretation Comments Hemoglobin (test code = 786-4) 12.6 g/dL 13-16.8 L Hematocrit (test code = 4544-3) 37.0 % 40-50 L Lab Interpretation (test code = 90308-1) [facility] [id number] 20:06:00* Test Item Value Reference Range Interpretation Comments Glucose (test code = 2345-7) 139 mg/dL 70-110 H Lab Interpretation (test code = 63144-2) [facility] [id number] 20:06:00* Test Item Value Reference Range Interpretation Comments Sodium (test code = 2951-2) 135 meq/L 136-145 L Lab Interpretation (test code = 87329-6) [facility]normal [facility] [id number] 20:06:00* Test Item Value Reference Range Interpretation Comments Potassium (test code = 2823-3) 4.2 meq/L 3.6-5.5 Lab Interpretation (test code = 65622-3) Normal [facility], [id number] 20:06:00* Test Item Value Reference Range Interpretation Comments CALCIUM IONIZED (BEAKER) (test code = 698) 1.11 mmol/L 1.12-1.27 L PH, BLOOD (BEAKER) (test code = 1810) 7.41 BLOOD GAS, [id number] 20:06:00* Test Item Value Reference Range Interpretation Comments PH ARTERIAL (BEAKER) (test code = 383) 7.41 7.35-7.45 PCO2 ARTERIAL (BEAKER) (test code = 384) 35 mmHg 35-45 PO2 ARTERIAL (BEAKER) (test code = 385) 82 mmHg 80-90 O2 SATURATION ARTERIAL (BEAKER) (test code = 386) 96.2 % 96.0 -97.0 HCO3 ARTERIAL (BEAKER) (test code = 388) 22 mmol/L 21-29 BASE EXCESS ARTERIAL (BEAKER) (test code = 387) -1.9 mmol/L -2.0-3 .0 PATIENT TEMPERATURE (BEAKER) (test code = 1818) 37.0 C FIO2 (BEAKER) (test code = 1819) 100.0 % SODIUM NA-STAT [id number] 20:06:00* Test Item Value Reference Range Interpretation Comments SODIUM (BEAKER) (test code = 381) 135 meq/L 136-145 L POTASSIUM-STAT [id number] 20:06:00* Test Item Value Reference Range Interpretation Comments POTASSIUM (BEAKER) (test code = 379) 4.2 meq/L 3.6-5.5 GLUCOSE-STAT [id number] 20:06:00* Test Item Value Reference Range Interpretation Comments GLUCOSE RANDOM (BEAKER) (test code = 652) 139 mg/dL 70-110 H HGB/HCT (H&H) - STAT [id number] 20:06:00* Test Item Value Reference Range Interpretation Comments HEMOGLOBIN (BEAKER) (test code = 410) 12.6 g/dL 13.0-16.8 L HEMATOCRIT (BEAKER) (test code = 411) 37.0 % 40.0-50.0 L OXYGEN SATURATION, [id number] 20:06:00* Test Item Value Reference Range Interpretation Comments O2 SATURATION (MEASURED) (BEAKER) (test code = 1455) 69.9 % Prepare [id number] 20:03:00* Test Item Value Reference Range Interpretation Comments CROSSMATCH (test code = 2264) COMPATIBLE Unit ABO (test code = 0960799) O Pos UNIT NUMBER (test code = 934-0) [id number] Status (test code = 1056405) RETURNED FROM ISSUE Blood Bank Product (test code = 2263) RED BLOOD CELLS PRODUCT CODE (test code = 933-2) [id number] [id number]* Test Item Value Reference Range Interpretation Comments MAGNESIUM (BEAKER) (test code = 627) 2.0 mg/dL 1.6-2.6 Specimen slightly hemolyzed Window [employer] Helper ID - BSCheck Serum Potassium level 2 hours after oral potassium replace ment completed or 30 min after intravenous potassium replacement.PHOSPHORUS 2019-09-21 19:42:00* Test Item Value Reference Range Interpretation Comments PHOSPHORUS (BEAKER) (test code = 604) 3.1 mg/dL 2.3-4.7 Specimen slightly hemolyzed Window Gl[employer]ier Helper ID - BSCheck Serum Potassium level 2 hours after oral potassium replace ment completed or 30 min after intravenous potassium replacement.POTASSIUM 2019-09-21 19:42:00* Test Item Value Reference Range Interpretation Comments POTASSIUM (BEAKER) (test code = 379) 4.0 meq/L 3.5-5.1 Specimen slightly hemolyzed Window Glazier Helper ID - BSCheck Serum Potassium level 2 hours after oral potassium replace ment completed or 30 min after intravenous potassium replacement.POCT-GLUCOSE [id number] 19:05:00* Test Item Value Reference Range Interpretation Comments POC-GLUCOSE METER (BEAKER) (test code = 1538) 140 mg/dL 70-110 H : TESTED AT [facility] [address] [facility], [address]: Window Glazier Helper/Financial Accounting Manager ID = [id number] for PACO ARREAGA RAD, CHEST, 1 VIEW, NON [id number] 18:45:00Reason for exam:->Status post CV Surgery post op day 0Should this be performed at the bedside?->YesFINAL REPORT EXAM: Chest one view COMPARISON: September 20, 2019 CLINICAL HISTORY: Postop FINDINGS: The endotracheal tube overlies the trachea with its tip approximately 3 cm above the tam. The tip of the right internal jugular central venous catheter overlies the cavoatrial junction. The tip of the nasogastric tube is below the diaphragm and not visualized. There is persistent cardiomegaly with worsening bilateral pulmonary edema. Subsegmental atelectasis involving the right upper lung is also noted. There is no evidence of pneumotho rax. Post median sternotomy changes noted. A linear metallic marker is seen over lying the left hilar region which may represent the intra-aortic balloon pump. I t is approximately 3 cm below the aortic knob. A mediastinal tube is also visual ized. Signed: Evans Spears MDReport Verified Date/Time: 09/21/2019 18:45:19 Reading Location: [address] Transitional Reading Room Electronically sig jay by: EVANS SPEARS M.D. on 09/21/2019 06:45 PM Comprehensive metabolic [id number] 17:04:00* Test Item Value Reference Range Interpretation Comments Protein, Total (test code = 2885-2) 5.3 6.0- 8.3 gm/dL L Specimen slightly hemolyzed Albumin (test code = 03038-7) 3.5 g/dL 3.5-5 Specimen slightly hemolyzed Alkaline Phosphatase (test code = 6768-6) 63 U/L 40-150 Total Bilirubin (test code = 1975-2) 1.5 mg/dL 0.2-1.2 H Specimen slightly hemolyzed Sodium (test code = 2951-2) 140 meq/L 136-145 Potassium (test code = 2823-3) 4.4 meq/L 3.5-5.1 Specimen slightly hemolyzed Chloride (test code = 5-0) 110 meq/L 98-107 H CO2 (test code = 2027-9) 20 meq/L 22-29 L BUN (test code = 3094-0) 10 mg/dL 7-21 Creatinine (test code = 2160-0) 0.61 mg/dL 0.57-1.25 Specimen slightly hemolyzed Glucose (test code = 2345-7) 151 mg/dL 70-105 H Calcium (test code = 42801-1) 8.1 mg/dL 8.4-10.2 L AST (test code = 1920-8) 40 U/L 5-34 H Spe cimen slightly hemolyzed ALT (test code = 1742-6) 18 U/L 6-55 Spe cimen slightly hemolyzed EGFR (test code = 73022-6) 134 mL/min/1.73 sq m ESTIMATED GFR IS NOT ACCURATE CREATININE CLEARANCE IN PREDICTING GLOMERULAR FILTRATION RATE. ESTIMATED GFR IS NOT APPLICABLE FOR DIALYSIS PATIENTS. LOLA (test code = LOLA) Window Glazier Helper ID - BS Lab Interpretation (test code = 34458-0) [facility]normal [facility] 17:04:00* Test Item Value Reference Range Interpretation Comments MAGNESIUM (BEAKER) (test code = 627) 1.9 mg/dL 1.6-2.6 Specimen slightly hemolyzed Window Glazier Helper ID - BSBASIC METABOLIC [id number] 17:04:00* Test Item Value Reference Range Interpretation Comments SODIUM (BEAKER) (test code = 381) 140 meq/L 136-145 POTASSIUM (BEAKER) (test code = 379) 4.4 meq/L 3.5-5.1 Specimen slightly hemolyzed CHLORIDE (BEAKER) (test code = 382) 110 meq/L 98-107 H CO2 (BEAKER) (test code = 355) 20 meq/L 22-29 L BLOOD UREA NITROGEN (BEAKER) (test code = 354) 10 mg/dL 7-21 CREATININE (BEAKER) (test code = 358) 0.61 mg/dL 0.57-1.25 Specimen slightly hemolyzed GLUCOSE RANDOM (BEAKER) (test code = 652) 151 mg/dL 70-105 H CALCIUM (BEAKER) (test code = 697) 8.1 mg/dL 8.4-10.2 L EGFR (BEAKER) (test code = 1092) 134 mL/min/1.73 sq m ESTIMATED GFR IS NOT ACCURATE CREATININE CLEARANCE IN PREDICTING GLOMERULAR FILTRATION RATE. ESTIMATED GFR IS NOT APPLICABLE FOR DIALYSIS PATIENTS. COMPREHENSIVE METABOLIC [id number] 17:04:00* Test Item Value Reference Range Interpretation Comments TOTAL PROTEIN (BEAKER) (test code = 770) 5.3 gm/dL 6.0-8.3 L Specimen slightly hemolyzed ALBUMIN (BEAKER) (test code = 1145) 3.5 g/dL 3.5-5.0 Specimen slightly hemolyzed ALKALINE PHOSPHATASE (BEAKER) (test code = 346) 63 U/L 40-150 BILIRUBIN TOTAL (BEAKER) (test code = 377) 1.5 mg/dL 0.2-1.2 H Specimen slightly hemolyzed SODIUM (BEAKER) (test code = 381) 140 meq/L 136-145 POTASSIUM (BEAKER) (test code = 379) 4.4 meq/L 3.5-5.1 Specimen slightly hemolyzed CHLORIDE (BEAKER) (test code = 382) 110 meq/L 98-107 H CO2 (BEAKER) (test code = 355) 20 meq/L 22-29 L BLOOD UREA NITROGEN (BEAKER) (test code = 354) 10 mg/dL 7-21 CREATININE (BEAKER) (test code = 358) 0.61 mg/dL 0.57-1.25 Specimen slightly hemolyzed GLUCOSE RANDOM (BEAKER) (test code = 652) 151 mg/dL 70-105 H CALCIUM (BEAKER) (test code = 697) 8.1 mg/dL 8.4-10.2 L AST (SGOT) (BEAKER) (test code = 353) 40 U/L 5-34 H Specimen slightly hemolyzed ALT (SGPT) (BEAKER) (test code = 347) 18 U/L 6-55 Specimen slightly hemolyzed EGFR (BEAKER) (test code = 1092) 134 mL/min/1.73 sq m ESTIMATED GFR IS NOT ACCURATE CREATININE CLEARANCE IN PREDICTING GLOMERULAR FILTRATION RATE. ESTIMATED GFR IS NOT APPLICABLE FOR DIALYSIS PATIENTS. Window Glazier Helper ID - BSProthrombin time/[id number] 17:02:00* Test Item Value Reference Range Interpretation Comments Protime (test code = 5902-2) 17.1 11.9- 14.2 seconds H INR (test code = 6301-6) 1.4 <=5.9 LOLA (test code = LOLA) Effective 09/16/2018: PT Refe rence Range ChangeNew: 11.9- 14.2 Previous: 11.7-14.7 RECOMMENDED COUMADIN/WARFARIN INR THERAPY RANGESSTANDARD DOSE: 2.0-3.0 Includes: PROPHYLAXIS for venous thrombosis, sys temic embolization; TREATMENT for venous thrombosis and/or pulmonary embolus.HIGH RISK: Target INR is 2.5-3.5 for patients wiht mechanical heart valves. Lab Interpretation (test code = 48337-4) Abnormal [facility]HROM[facility] TIME/[id number] 17:02:00* Test Item Value Reference Range Interpretation Comments PROTIME (BEAKER) (test code = 759) 17.1 seconds 11.9-14.2 H INR (BEAKER) (test code = 370) 1.4 <=5.9 Effective 09/16/2018: PT Reference Range ChangeNew: 11.9-14.2 Previous: 11.7-14. 7RECOMMENDED COUMADIN/WARFARIN INR THERAPY RANGESSTANDARD DOSE: 2.0-3.0 Include s: PROPHYLAXIS for venous thrombosis, systemic embolization; TREATMENT for venou s thrombosis and/or pulmonary embolus.HIGH RISK: Target INR is 2.5-3.5 for [facility]ie [facility] wi mechanical heart valves.PT/[id number] 17:02:00* Test Item Value Reference Range Interpretation Comments PROTIME (BEAKER) (test code = 759) 17.1 seconds 11.9-14.2 H INR (BEAKER) (test code = 370) 1.4 <=5.9 PARTIAL THROMBOPLASTIN TIME (BEAKER) (test code = 760) 31.6 seconds 22.5-36.0 Effective 09/16/2018: PT Reference Range ChangeNew: 11.9-14.2 Previous: 11.7-14. 7RECOMMENDED COUMADIN/WARFARIN INR THERAPY RANGESSTANDARD DOSE: 2.0-3.0 Include s: PROPHYLAXIS for venous thrombosis, systemic embolization; TREATMENT for venou s thrombosis and/or pulmonary embolus.HIGH RISK: Target INR is 2.5-3.5 for patie [facility] mechanical heart valves.CBC W/PLT COUNT & AUTO [id number] 16:38:00* Test Item Value Reference Range Interpretation Comments WHITE BLOOD CELL COUNT (BEAKER) (test code = 775) 13.7 K/ L 3.5- 10.5 H RED BLOOD CELL COUNT (BEAKER) (test code = 761) 4.09 M/ L 4.63-6 .08 L HEMOGLOBIN (BEAKER) (test code = 410) 12.6 GM/DL 13.7-17.5 L HEMATOCRIT (BEAKER) (test code = 411) 36.8 % 40.1-51.0 L MEAN CORPUSCULAR VOLUME (BEAKER) (test code = 753) 90.0 fL 79. 0-92.2 MEAN CORPUSCULAR HEMOGLOBIN (BEAKER) (test code = 751) 30.8 pg 25.7-32.2 MEAN CORPUSCULAR HEMOGLOBIN CONC (BEAKER) (test code = 752) 34.2 GM/DL 32.3-36.5 RED CELL DISTRIBUTION WIDTH (BEAKER) (test code = 412) 13.2 % 11.6-14.4 PLATELET COUNT (BEAKER) (test code = 756) 123 K/CU MM 150-450 L MEAN PLATELET VOLUME (BEAKER) (test code = 754) 10.0 fL 9.4-12 .4 NUCLEATED RED BLOOD CELLS (BEAKER) (test code = 413) 0 /100 WBC 0 -0 NEUTROPHILS RELATIVE PERCENT (BEAKER) (test code = 429) 83 % LYMPHOCYTES RELATIVE PERCENT (BEAKER) (test code = 430) 7 % MONOCYTES RELATIVE PERCENT (BEAKER) (test code = 431) 9 % EOSINOPHILS RELATIVE PERCENT (BEAKER) (test code = 432) 0 % BASOPHILS RELATIVE PERCENT (BEAKER) (test code = 437) 0 % NEUTROPHILS ABSOLUTE COUNT (BEAKER) (test code = 670) 11.32 K/ L 1.78-5.38 H LYMPHOCYTES ABSOLUTE COUNT (BEAKER) (test code = 414) 0.90 K/ L 1.32-3.57 L MONOCYTES ABSOLUTE COUNT (BEAKER) (test code = 415) 1.27 K/ L 0. 30-0.82 H EOSINOPHILS ABSOLUTE COUNT (BEAKER) (test code = 416) 0.03 K/ L 0.04-0.54 L BASOPHILS ABSOLUTE COUNT (BEAKER) (test code = 417) 0.04 K/ L 0. 01-0.08 IMMATURE GRANULOCYTES-RELATIVE PERCENT (BEAKER) (test code = 2801) 1 % 0-1 BLOOD GAS, [id number] 16:30:00* Test Item Value Reference Range Interpretation Comments PH ARTERIAL (BEAKER) (test code = 383) 7.37 7.35-7.45 PCO2 ARTERIAL (BEAKER) (test code = 384) 40 mmHg 35-45 PO2 ARTERIAL (BEAKER) (test code = 385) 114 mmHg 80-90 H O2 SATURATION ARTERIAL (BEAKER) (test code = 386) 98.2 % 96.0 -97.0 H HCO3 ARTERIAL (BEAKER) (test code = 388) 23 mmol/L 21-29 BASE EXCESS ARTERIAL (BEAKER) (test code = 387) -2.6 mmol/L -2.0-3 .0 L PATIENT TEMPERATURE (BEAKER) (test code = 1818) 35.9 C FIO2 (BEAKER) (test code = 1819) 50.0 % GLUCOSE-STAT [id number] 16:30:00* Test Item Value Reference Range Interpretation Comments GLUCOSE RANDOM (BEAKER) (test code = 652) 150 mg/dL 70-110 H HGB/HCT (H&H) - STAT [id number] 16:30:00* Test Item Value Reference Range Interpretation Comments HEMOGLOBIN (BEAKER) (test code = 410) 13.0 g/dL 13.0-16.8 HEMATOCRIT (BEAKER) (test code = 411) 38.0 % 40.0-50.0 L OXYGEN SATURATION, [id number] 16:29:00* Test Item Value Reference Range Interpretation Comments O2 SATURATION (MEASURED) (BEAKER) (test code = 1455) 86.6 % SODIUM NA-STAT [id number] 16:29:00* Test Item Value Reference Range Interpretation Comments SODIUM (BEAKER) (test code = 381) 136 meq/L 136-145 POTASSIUM-STAT [id number] 16:29:00* Test Item Value Reference Range Interpretation Comments POTASSIUM (BEAKER) (test code = 379) 4.1 meq/L 3.6-5.5 POC ACTIVATED CLOTTING [id number] 15:51:00* Test Item Value Reference Range Interpretation Comments Activated Clotting Time (test code = 441) 109 sec : 74-137 seconds, Baseline: TESTED AT [address], [address]: Window Glazier Helper/Financial Accounting Manager ID = [id number] for ZACK ANDRADE [facility] CenterPOCT-[id number] 15:51:00* Test Item Value Reference Range Interpretation Comments ACTIVATED CLOTTING TIME (BEAKER) (test code = 441) 109 sec : 74-137 seconds, Baseline: TESTED AT [address], [address]: Window Glazier Helper/Financial Accounting Manager ID = [id number] for ZACK ANDRADE EDRU-[id number] 15:51:00* Test Item Value Reference Range Interpretation Comments ACTIVATED CLOTTING TIME (BEAKER) (test code = 441) 499 sec : 74-137 seconds, Baseline: TESTED AT [address], [address]: Window Glazier Helper/Financial Accounting Manager ID = [id number] for ZACK ANDRADE [id number] 15:51:00* Test Item Value Reference Range Interpretation Comments ACTIVATED CLOTTING TIME (BEAKER) (test code = 441) 417 sec : 74-137 seconds, Baseline: TESTED AT [facility] [address] [facility], [address]: Window Glazier Helper/Financial Accounting Manager ID = [id number] for ZACK ANDRADE [id number] 15:51:00* Test Item Value Reference Range Interpretation Comments ACTIVATED CLOTTING TIME (BEAKER) (test code = 441) 566 sec : 74-137 seconds, Baseline: TESTED AT [place] [id number] [facility], [address]: Window Glazier Helper/Financial Accounting Manager ID = [id number] for ZACK ANDRADE [id number] 15:50:00* Test Item Value Reference Range Interpretation Comments ACTIVATED CLOTTING TIME (BEAKER) (test code = 441) 389 sec : 74-137 seconds, Baseline: TESTED AT [address], [address]: Window Glazier Helper/Financial Accounting Manager ID = [id number] for ZACK ANDRADE [id number] 15:50:00* Test Item Value Reference Range Interpretation Comments ACTIVATED CLOTTING TIME (BEAKER) (test code = 441) 103 sec : 74-137 seconds, Baseline: TESTED AT [address], [address]: Window Glazier Helper/Financial Accounting Manager ID = [id number] for ZACK ANDRADE CALCIUM, [id number] 14:44:00* Test Item Value Reference Range Interpretation Comments CALCIUM IONIZED (BEAKER) (test code = 698) 1.20 mmol/L 1.12-1.27 PH, BLOOD (BEAKER) (test code = 1810) 7.33 POTASSIUM-STAT [id number] 14:43:00* Test Item Value Reference Range Interpretation Comments POTASSIUM (BEAKER) (test code = 379) 4.6 meq/L 3.6-5.5 BLOOD GAS, [id number] 14:43:00* Test Item Value Reference Range Interpretation Comments PH ARTERIAL (BEAKER) (test code = 383) 7.35 7.35-7.45 PCO2 ARTERIAL (BEAKER) (test code = 384) 43 mmHg 35-45 PO2 ARTERIAL (BEAKER) (test code = 385) 272 mmHg 80-90 H O2 SATURATION ARTERIAL (BEAKER) (test code = 386) 99.6 % 96.0 -97.0 H HCO3 ARTERIAL (BEAKER) (test code = 388) 24 mmol/L 21-29 BASE EXCESS ARTERIAL (BEAKER) (test code = 387) -2.6 mmol/L -2.0-3 .0 L PATIENT TEMPERATURE (BEAKER) (test code = 1818) 35.9 C FIO2 (BEAKER) (test code = 1819) 97.0 % SODIUM NA-STAT [id number] 14:43:00* Test Item Value Reference Range Interpretation Comments SODIUM (BEAKER) (test code = 381) 133 meq/L 136-145 L GLUCOSE-STAT [id number] 14:43:00* Test Item Value Reference Range Interpretation Comments GLUCOSE RANDOM (BEAKER) (test code = 652) 180 mg/dL 70-110 H HGB/HCT (H&H) - STAT [id number] 14:43:00* Test Item Value Reference Range Interpretation Comments HEMOGLOBIN (BEAKER) (test code = 410) 12.9 g/dL 13.0-16.8 L HEMATOCRIT (BEAKER) (test code = 411) 38.0 % 40.0-50.0 L BLOOD GAS, [id number] 13:53:00* Test Item Value Reference Range Interpretation Comments PH ARTERIAL (BEAKER) (test code = 383) 7.42 7.35-7.45 PCO2 ARTERIAL (BEAKER) (test code = 384) 40 mmHg 35-45 PO2 ARTERIAL (BEAKER) (test code = 385) 286 mmHg 80-90 H O2 SATURATION ARTERIAL (BEAKER) (test code = 386) 99.7 % 96.0 -97.0 H HCO3 ARTERIAL (BEAKER) (test code = 388) 25 mmol/L 21-29 BASE EXCESS ARTERIAL (BEAKER) (test code = 387) 0.3 mmol/L -2.0-3 .0 PATIENT TEMPERATURE (BEAKER) (test code = 1818) 35.3 C FIO2 (BEAKER) (test code = 1819) 80.0 % SODIUM NA-STAT [id number] 13:53:00* Test Item Value Reference Range Interpretation Comments SODIUM (BEAKER) (test code = 381) 132 meq/L 136-145 L POTASSIUM-STAT [id number] 13:53:00* Test Item Value Reference Range Interpretation Comments POTASSIUM (BEAKER) (test code = 379) 5.6 meq/L 3.6-5.5 H GLUCOSE-STAT [id number] 13:53:00* Test Item Value Reference Range Interpretation Comments GLUCOSE RANDOM (BEAKER) (test code = 652) 218 mg/dL 70-110 H HGB/HCT (H&H) - STAT [id number] 13:53:00* Test Item Value Reference Range Interpretation Comments HEMOGLOBIN (BEAKER) (test code = 410) 12.4 g/dL 13.0-16.8 L HEMATOCRIT (BEAKER) (test code = 411) 36.0 % 40.0-50.0 L BLOOD GAS, [id number] 13:32:00* Test Item Value Reference Range Interpretation Comments PH ARTERIAL (BEAKER) (test code = 383) 7.35 7.35-7.45 PCO2 ARTERIAL (BEAKER) (test code = 384) 39 mmHg 35-45 PO2 ARTERIAL (BEAKER) (test code = 385) 356 mmHg 80-90 H O2 SATURATION ARTERIAL (BEAKER) (test code = 386) 99.8 % 96.0 -97.0 H HCO3 ARTERIAL (BEAKER) (test code = 388) 23 mmol/L 21-29 BASE EXCESS ARTERIAL (BEAKER) (test code = 387) -5.1 mmol/L -2.0-3 .0 L PATIENT TEMPERATURE (BEAKER) (test code = 1818) 30.1 C FIO2 (BEAKER) (test code = 1819) 80.0 % SODIUM NA-STAT [id number] 13:32:00* Test Item Value Reference Range Interpretation Comments SODIUM (BEAKER) (test code = 381) 131 meq/L 136-145 L GLUCOSE-STAT [id number] 13:32:00* Test Item Value Reference Range Interpretation Comments GLUCOSE RANDOM (BEAKER) (test code = 652) 223 mg/dL 70-110 H HGB/HCT (H&H) - STAT [id number] 13:32:00* Test Item Value Reference Range Interpretation Comments HEMOGLOBIN (BEAKER) (test code = 410) 13.2 g/dL 13.0-16.8 HEMATOCRIT (BEAKER) (test code = 411) 39.0 % 40.0-50.0 L POTASSIUM-STAT [id number] 13:29:00* Test Item Value Reference Range Interpretation Comments POTASSIUM (BEAKER) (test code = 379) 5.5 meq/L 3.6-5.5 BLOOD GAS, [id number] 12:58:00* Test Item Value Reference Range Interpretation Comments PH ARTERIAL (BEAKER) (test code = 383) 7.37 7.35-7.45 PCO2 ARTERIAL (BEAKER) (test code = 384) 35 mmHg 35-45 PO2 ARTERIAL (BEAKER) (test code = 385) 349 mmHg 80-90 H O2 SATURATION ARTERIAL (BEAKER) (test code = 386) 99.8 % 96.0 -97.0 H HCO3 ARTERIAL (BEAKER) (test code = 388) 22 mmol/L 21-29 BASE EXCESS ARTERIAL (BEAKER) (test code = 387) -5.7 mmol/L -2.0-3 .0 L PATIENT TEMPERATURE (BEAKER) (test code = 1818) 27.7 C FIO2 (BEAKER) (test code = 1819) 80.0 % SODIUM NA-STAT [id number] 12:58:00* Test Item Value Reference Range Interpretation Comments SODIUM (BEAKER) (test code = 381) 132 meq/L 136-145 L GLUCOSE-STAT [id number] 12:58:00* Test Item Value Reference Range Interpretation Comments GLUCOSE RANDOM (BEAKER) (test code = 652) 224 mg/dL 70-110 H POTASSIUM-STAT [id number] 12:56:00* Test Item Value Reference Range Interpretation Comments POTASSIUM (BEAKER) (test code = 379) 5.2 meq/L 3.6-5.5 HGB/HCT (H&H) - STAT [id number] 12:56:00* Test Item Value Reference Range Interpretation Comments HEMOGLOBIN (BEAKER) (test code = 410) 13.6 g/dL 13.0-16.8 HEMATOCRIT (BEAKER) (test code = 411) 40.0 % 40.0-50.0 CALCIUM, [id number] 10:31:00* Test Item Value Reference Range Interpretation Comments CALCIUM IONIZED (BEAKER) (test code = 698) 1.08 mmol/L 1.12-1.27 L PH, BLOOD (BEAKER) (test code = 1810) 7.38 SODIUM NA-STAT [id number] 10:29:00* Test Item Value Reference Range Interpretation Comments SODIUM (BEAKER) (test code = 381) 135 meq/L 136-145 L POTASSIUM-STAT [id number] 10:29:00* Test Item Value Reference Range Interpretation Comments POTASSIUM (BEAKER) (test code = 379) 4.4 meq/L 3.6-5.5 HGB/HCT (H&H) - STAT [id number] 10:29:00* Test Item Value Reference Range Interpretation Comments HEMOGLOBIN (BEAKER) (test code = 410) 16.5 g/dL 13.0-16.8 HEMATOCRIT (BEAKER) (test code = 411) 49.0 % 40.0-50.0 BLOOD GAS, [id number] 10:29:00* Test Item Value Reference Range Interpretation Comments PH ARTERIAL (BEAKER) (test code = 383) 7.40 7.35-7.45 PCO2 ARTERIAL (BEAKER) (test code = 384) 39 mmHg 35-45 PO2 ARTERIAL (BEAKER) (test code = 385) 283 mmHg 80-90 H O2 SATURATION ARTERIAL (BEAKER) (test code = 386) 99.7 % 96.0 -97.0 H HCO3 ARTERIAL (BEAKER) (test code = 388) 24 mmol/L 21-29 BASE EXCESS ARTERIAL (BEAKER) (test code = 387) -1.3 mmol/L -2.0-3 .0 PATIENT TEMPERATURE (BEAKER) (test code = 1818) 35.9 C FIO2 (BEAKER) (test code = 1819) 97.0 % GLUCOSE-STAT [id number] 10:29:00* Test Item Value Reference Range Interpretation Comments GLUCOSE RANDOM (BEAKER) (test code = 652) 138 mg/dL 70-110 H [id number] 10:19:19Parker Stafford MD - 09/21/2019 10:19 AM CDT TEEDate: 09/21/2019 10:19 AM Sex: Male Location: OR Requesting Physician: Janine Campbell MD Examiner: Silvio Badillo MD Indication: ACB Intubated Sedated Patient screened for esoph disease: Yes Insertion: easy Probe Type: multiplane Modalities: 2D, CFM, CWD and PWD Pre Intervention Summary: 63 yo M presenting for ACB with Dr. Campbell.Aorta: no aneurysm, no dissection, no mobile plaquesAV: trileaflet morphology, no aortic stenosis, however restricted RCC movement, no aortic regurgitationLV: Mildly enlarged chamber size (LVIDd 5.8cm), No LVH, low normal systolic function (EF 48% by Jacobs's), inferoseptal wall hypokinesis, no thrombusMV: normal morphology, no mitral regurgitation, no mitral stenosisLA: no CHAMP thrombus, normal size and functionPV: limited visualizationRV: normal sized chamber, normal function (TAPSE 2.4cm), no thrombusTV: normal morphology, trace tricuspid regurgitationRA: no thrombusSmall PFO by color dopper flowAll findings communicated to surgical team. Post Intervention Summary: S/p [id number]: No aneurysm, no dissection, no mobile plaques. AV: StableLV: Normal chamber size , no LVH, normal systolic function mildly improved (EF 55% by qualitative assessment), inferoseptal wall hypokinesis, no thrombusMV: normal morphology, mild mitral regurgitation, no mitral stenosisLA: no CHAMP thrombus, normal size and functionPV: limited visualizationRV: normal sized chamber, normal function, no thrombusTV: normal morphology, trace tricuspid regurgitation RA: no thrombusNo PFO by color dopper flowNo evidence of GARY.No aortic injury af ter decannulation. All findings communicated to surgical team. [facility] Hospital[facility]regation: Function [id number] 09:57:00* Test Item Value Reference Range Interpretation Comments Pathologist: (test code = 2622) Valeriy Heredia M.D. (electonic sign ature) Platelets (test code = 2656) 166 150- 450 K/CU MM ADP (test code = 70195-6) 83 % 62-100 Platelet Rich Plasma (test code = 2134) 285 200- 300 k/cu mm Plt. Function Screen Interpretation (test code = 4655) Normal aggregation results with ADP. No evidence of platelet dysfunction or P2Y12 inhibitor effect. LOLA (test code = LOAL) Platelet Function Screen res ults may be falsely low with platelet counts<75,000/cu mm.Window Glazier Helper ID - [id number] [facility] HospitalPLATELET AGGREGATION: FUNCTION [id number] 09:57:00* Test Item Value Reference Range Interpretation Comments [id number] (BEAKER) (test code = 2622) Edita Heredia M.D. (electonic signature) PLATELET COUNT AGG (BEAKER) (test code = 2656) 166 K/CU MM 150-450 ADP (BEAKER) (test code = 4654) 83 % 62-100 PLATELET RICH PLASMA(BEAKER) (test code = 2134) 285 k/cu mm 200-30 0 PLATELET FUNCTION SCREEN INTERPRETATION (BEAKER) (test code = 4655) Normal aggregation results with ADP. No evidence of platelet dysfunction or P2Y12 inhibitor effect. Platelet Function Screen results may be falsely low with platelet counts< 75,000/cu mm.Window Glazier Helper ID - [id number] AGGREGATION: FUNCTION [id number] 09:25:00* Test Item Value Reference Range Interpretation Comments [id number] (BEAKER) (test code = 2622) Edita Heredia M.D. (electonic signature) PLATELET COUNT AGG (BEAKER) (test code = 2656) 170 K/CU MM 150-450 ADP (BEAKER) (test code = 4654) 40 % 62-100 L PLATELET RICH PLASMA(BEAKER) (test code = 2134) 258 k/cu mm 200-30 0 PLATELET FUNCTION SCREEN INTERPRETATION (BEAKER) (test code = 4655) Pattern of disaggregation present with ADP which may be characteristic of P2Y12 inhibitor effect. Correlation with medication history is required. Platelet Function Screen results may be falsely low with platelet counts< 75,000/cu mm.Window Glazier Helper ID - [id number] [id number] 08:11:00* Test Item Value Reference Range Interpretation Comments POC-GLUCOSE METER (BEAKER) (test code = 1538) 118 mg/dL 70-110 H : TESTED AT [facility] [address] [facility], [address]: Window Glazier Helper/Financial Accounting Manager ID = [id number] for SAGAR CARR [id number] 07:31:00* Test Item Value Reference Range Interpretation Comments MAGNESIUM (BEAKER) (test code = 627) 1.8 mg/dL 1.6-2.6 Specimen slightly hemolyzed Window Glazier Helper ID - PIAYA LBASIC METABOLIC [id number] 07:31:00* Test Item Value Reference Range Interpretation Comments SODIUM (BEAKER) (test code = 381) 136 meq/L 136-145 POTASSIUM (BEAKER) (test code = 379) 4.3 meq/L 3.5-5.1 Specimen slightly hemolyzed CHLORIDE (BEAKER) (test code = 382) 106 meq/L 98-107 CO2 (BEAKER) (test code = 355) 23 meq/L 22-29 BLOOD UREA NITROGEN (BEAKER) (test code = 354) 10 mg/dL 7-21 CREATININE (BEAKER) (test code = 358) 0.65 mg/dL 0.57-1.25 Specimen slightly hemolyzed GLUCOSE RANDOM (BEAKER) (test code = 652) 125 mg/dL 70-105 H CALCIUM (BEAKER) (test code = 697) 8.8 mg/dL 8.4-10.2 EGFR (BEAKER) (test code = 1092) 124 mL/min/1.73 sq m ESTIMATED GFR IS NOT ACCURATE CREATININE CLEARANCE IN PREDICTING GLOMERULAR FILTRATION RATE. ESTIMATED GFR IS NOT APPLICABLE FOR DIALYSIS PATIENTS. Window Glazier Helper ID - [id number] [id number] 07:20:00* Test Item Value Reference Range Interpretation Comments PTT (test code = 50962-6) 88.8 22.5- 36.0 seconds H Lab Interpretation (test code = 75008-9) [facility] Test Item Value Reference Range Interpretation Comments PARTIAL THROMBOPLASTIN TIME (BEAKER) (test code = 760) 88.8 seconds 22.5-36.0 H CBC (HEMOGRAM ONLY)2019-09-21 07:08:00* Test Item Value Reference Range Interpretation Comments WHITE BLOOD CELL COUNT (BEAKER) (test code = 775) 8.2 K/ L 3.5- 10.5 RED BLOOD CELL COUNT (BEAKER) (test code = 761) 5.07 M/ L 4.63-6 .08 HEMOGLOBIN (BEAKER) (test code = 410) 15.8 GM/DL 13.7-17.5 HEMATOCRIT (BEAKER) (test code = 411) 45.4 % 40.1-51.0 MEAN CORPUSCULAR VOLUME (BEAKER) (test code = 753) 89.5 fL 79. 0-92.2 MEAN CORPUSCULAR HEMOGLOBIN (BEAKER) (test code = 751) 31.2 pg 25.7-32.2 MEAN CORPUSCULAR HEMOGLOBIN CONC (BEAKER) (test code = 752) 34.8 GM/DL 32.3-36.5 RED CELL DISTRIBUTION WIDTH (BEAKER) (test code = 412) 13.3 % 11.6-14.4 PLATELET COUNT (BEAKER) (test code = 756) 176 K/CU MM 150-450 MEAN PLATELET VOLUME (BEAKER) (test code = 754) 10.1 fL 9.4-12 .4 NUCLEATED RED BLOOD CELLS (BEAKER) (test code = 413) 0 /100 WBC 0 -0 POCT-GLUCOSE [id number] 06:49:00* Test Item Value Reference Range Interpretation Comments POC-GLUCOSE METER (BEAKER) (test code = 1538) 126 mg/dL 70-110 H : TESTED AT [address], [address]: Window Glazier Helper/Financial Accounting Manager ID = [id number] for Tiffany Amairani RAD, CHEST, 1 VIEW, NON [id number] 23:48:00Reason for exam:->IABP augmentationShould this be performed at the bedside?->YesFINAL REPORT Chest one view. Clinical history: IABP augmentation Comparison: Chest radiograph 09/20/2019, 8:17 AM Technique: A single frontal view of the chest was obtained. Findings:There is an intra-aortic balloon pump whose radiopaque marker is at over the level of the tam.The cardiomediastinal contours are stable. There is pulmonary vascular congestion. There is no pleural effusion or pneumothorax. Signed: Kadeem Saavedra Verified Date/Time: 09/20/2019 23:48:34 -GLUCOSE [id number] 23:38:00* Test Item Value Reference Range Interpretation Comments POC-GLUCOSE METER (BEAKER) (test code = 1538) 160 mg/dL 70-110 H : TESTED AT [place] [id number] [facility], [address]: Window Glazier Helper/Financial Accounting Manager ID = [id number] for Amairani Allne POCT-GLUCOSE [id number] 20:34:00* Test Item Value Reference Range Interpretation Comments POC-GLUCOSE METER (LUISAKER) (test code = 1538) 157 mg/dL 70-110 H : TESTED AT [facility] [address] [place], [address]: Window Glazier Helper/Financial Accounting Manager ID = [id number] for Amairani Allen SARS-COV2/RT-PCR ([facility])2019-09-20 18:19:00* Test Item Value Reference Range Interpretation Comments SARS-COV2/RT-PCR (test code = 4276883) Not Detected Not Detected, N egative SARS-COV-2 PERFORMING LAB (test code = 7574645) [facility] Negative results do not preclude SARS-CoV-2 infection and should not be used as the sole basis for patient management decisions. Negative results must be combin ed with clinical observations, patient history, and epidemiological information. A false negative result may occur if a specimen is improperly collected, transp orted or handled.The limit of detection for this assay is 250 copies/mL.This VICTOR MANUEL S CoV-2 test is a rapid, real-time RT-PCR test intended for the qualitative dete ction of nucleic acid from SARS-CoV-2 in a nasopharyngeal swab specimen collecte d from individuals suspected of COVID-19 by their healthcare provider.This test has not been Food and Drug Administration (FDA) cleared or approved and has been authorized by FDA under an Emergency Use Authorization (EUA). This EUA will be effective until the declaration that circumstances exist justifying the authoriz ation of the emergency use of in vitro diagnostic tests for detection and/or syed gnosis of COVID-19 is terminated under Section 564(b)(2) of the Act or the EUA i s revoked under Section 564(g) of the Act.Fact Sheet for Healthcare Providers:ht tps://www.[facility]/Documents/Xpert%20Xpress%20SARS%20CoV-2/Fact%20Sheets/302- 6116%60YQKR-OAV-7%20HEALTHCARE%20PROVIDERS%20FACT%20SHEET.pdfFact Sheet for Heal thcare Patients:https://www.[facility]/Documents/Xpert%20Xpress%20SARS%20CoV-2/ Fact%20Sheets/302-3801%50MKIV-TIZ-3%20PATIENT%20FACT%20SHEET.pdfPerforming Labor atory:[facility], [place] [address]WHTIX, [id number] 16:58:00* Test Item Value Reference Range Interpretation Comments ABO Grouping (test code = 2588) O Rh Factor (test code = 2589) POS [facility] [id number] 16:33:00* Test Item Value Reference Range Interpretation Comments POC-GLUCOSE METER (BEAKER) (test code = 1538) 172 mg/dL 70-110 H : TESTED AT [address], [address]: Window Glazier Helper/Financial Accounting Manager ID = [id number] for SAGAR CARR PROTHROMBIN TIME/[id number] 16:22:00* Test Item Value Reference Range Interpretation Comments PROTIME (BEAKER) (test code = 759) 14.1 seconds 11.9-14.2 INR (BEAKER) (test code = 370) 1.1 <=5.9 Effective 09/16/2018: PT Reference Range ChangeNew: 11.9-14.2 Previous: 11.7-14. 7RECOMMENDED COUMADIN/WARFARIN INR THERAPY RANGESSTANDARD DOSE: 2.0-3.0 Include s: PROPHYLAXIS for venous thrombosis, systemic embolization; TREATMENT for venou s thrombosis and/or pulmonary embolus.HIGH RISK: Target INR is 2.5-3.5 for patie nts wiht mechanical heart valves.[id number] 16:19:00* Test Item Value Reference Range Interpretation Comments PARTIAL THROMBOPLASTIN TIME (BEAKER) (test code = 760) 81.4 seconds 22.5-36.0 H Type and screen, [id number] 16:13:00* Test Item Value Reference Range Interpretation Comments ABO/RH AUTOMATED (BEAKER) (test code = 2260) O POSITIVE Ab Scrn (test code = 890-4) NEGATIVE [id number] 16:12:00* Test Item Value Reference Range Interpretation Comments POTASSIUM (BEAKER) (test code = 379) 4.3 meq/L 3.5-5.1 Window Glazier Helper ID - [id number] 16:12:00* Test Item Value Reference Range Interpretation Comments MAGNESIUM (BEAKER) (test code = 627) 2.0 mg/dL 1.6-2.6 Window Glazier Helper ID - NTPLipid [id number] 15:23:00* Test Item Value Reference Range Interpretation Comments Triglycerides (test code = 2571-8) 195 mg/dL Cholesterol (test code = 2093-3) 143 mg/dL HDL (test code = 2085-9) 36 mg/dL LDL Calculated (test code = 61699-8) 68 mg/dL LOLA (test code = LOLA) Triglyceride Reference Range : Low Risk <150 Borderline 150-199 High Risk 200-499 Very High Risk >=500 Cholesterol Reference Range: Low Risk <200 Borderline 200-239 High Risk >240 HDL Cholesterol Reference Range: Low Risk >=60 High Risk <40 LDL Cholesterol Reference Range: Optimal <100 Near Optimal 100-129 Borderline 130-159 High 160-189 Very High >=190 Window Glazier Helper ID - NTP [facility] HospitalLIPID [id number] 15:23:00* Test Item Value Reference Range Interpretation Comments TRIGLYCERIDES (BEAKER) (test code = 540) 195 mg/dL CHOLESTEROL (BEAKER) (test code = 631) 143 mg/dL HDL CHOLESTEROL (BEAKER) (test code = 976) 36 mg/dL LDL CHOLESTEROL CALCULATED (BEAKER) (test code = 633) 68 mg/dL Triglyceride Reference Range: Low Risk <150 Borderline 150-199 High Risk 200-499 Very High Risk >=500Cholesterol Reference Range: Low Risk <200 Borderline 200-239 High Risk >240HDL Cholesterol Reference Range: Low Risk >=60 High Risk <40LDL Cholesterol Reference Range: Optimal <100 Near Optimal 100-129 Borderline 130-159 High 160-189 Very High >=190 Window Glazier Helper ID - NTPPOCT-GLUCOSE [id number] 11:35:00* Test Item Value Reference Range Interpretation Comments POC-GLUCOSE METER (BEAKER) (test code = 1538) 148 mg/dL 70-110 H : TESTED AT [address], [address]: Window Glazier Helper/Financial Accounting Manager ID = [id number] for KNUTSON, OFELIA Hemoglobin [id number] 09:57:00* Test Item Value Reference Range Interpretation Comments Hemoglobin A1C (test code = 4548-4) 8.4 % 4.3-6.1 H Lab Interpretation (test code = 72369-3) Abnormal [facility] [id number] 09:57:00* Test Item Value Reference Range Interpretation Comments HEMOGLOBIN A1C (BEAKER) (test code = 368) 8.4 % 4.3-6.1 H [id number] 09:42:00* Test Item Value Reference Range Interpretation Comments PARTIAL THROMBOPLASTIN TIME (BEAKER) (test code = 760) 76.7 seconds 22.5-36.0 H RAD, CHEST, 1 VIEW, NON [id number] 09:03:00Reason for exam:->iabp placementShould this be performed at the bedside?->YesFINAL REPORT RAD, CHEST, 1 VIEW, NON DEPT INDICATION: iabp placement COMPARISON: Prior day's exam FINDINGS: Portable frontal view of the chest. IMPRESSION: Support Lines: IABP marker is 2 cm placenta top of the aortic arch Lungs and pleura: Lungs are clear No pneumothorax.Heart and mediastinum: Stable contours. Stable surgical changes.Additional findings: None. Signed: Silvana Varma Verified Date/Time: 09/20/2019 09:03:28 Reading Location: [facility] Radiology Reading Room -GLUCOSE [id number] 07:37:00* Test Item Value Reference Range Interpretation Comments POC-GLUCOSE METER (BEAKER) (test code = 1538) 129 mg/dL 70-110 H : TESTED AT [facility] [address] [facility], [address]: Window Glazier Helper/Financial Accounting Manager ID = [id number] for OFELIA KNUTSON [id number] 07:20:00* Test Item Value Reference Range Interpretation Comments MAGNESIUM (BEAKER) (test code = 627) 2.1 mg/dL 1.6-2.6 Window Glazier Helper ID - PIAYA LBASIC METABOLIC [id number] 07:20:00* Test Item Value Reference Range Interpretation Comments SODIUM (BEAKER) (test code = 381) 138 meq/L 136-145 POTASSIUM (BEAKER) (test code = 379) 4.4 meq/L 3.5-5.1 CHLORIDE (BEAKER) (test code = 382) 109 meq/L 98-107 H CO2 (BEAKER) (test code = 355) 23 meq/L 22-29 BLOOD UREA NITROGEN (BEAKER) (test code = 354) 13 mg/dL 7-21 CREATININE (BEAKER) (test code = 358) 0.64 mg/dL 0.57-1.25 GLUCOSE RANDOM (BEAKER) (test code = 652) 131 mg/dL 70-105 H CALCIUM (BEAKER) (test code = 697) 8.7 mg/dL 8.4-10.2 EGFR (BEAKER) (test code = 1092) 127 mL/min/1.73 sq m ESTIMATED GFR IS NOT ACCURATE CREATININE CLEARANCE IN PREDICTING GLOMERULAR FILTRATION RATE. ESTIMATED GFR IS NOT APPLICABLE FOR DIALYSIS PATIENTS. Window Glazier Helper ID - PIAYA LCBC W/PLT COUNT & AUTO [id number] 06:55:00* Test Item Value Reference Range Interpretation Comments WHITE BLOOD CELL COUNT (BEAKER) (test code = 775) 7.4 K/ L 3.5- 10.5 RED BLOOD CELL COUNT (BEAKER) (test code = 761) 5.17 M/ L 4.63-6 .08 HEMOGLOBIN (BEAKER) (test code = 410) 16.1 GM/DL 13.7-17.5 HEMATOCRIT (BEAKER) (test code = 411) 46.8 % 40.1-51.0 MEAN CORPUSCULAR VOLUME (BEAKER) (test code = 753) 90.5 fL 79. 0-92.2 MEAN CORPUSCULAR HEMOGLOBIN (BEAKER) (test code = 751) 31.1 pg 25.7-32.2 MEAN CORPUSCULAR HEMOGLOBIN CONC (BEAKER) (test code = 752) 34.4 GM/DL 32.3-36.5 RED CELL DISTRIBUTION WIDTH (BEAKER) (test code = 412) 13.2 % 11.6-14.4 PLATELET COUNT (BEAKER) (test code = 756) 162 K/CU MM 150-450 MEAN PLATELET VOLUME (BEAKER) (test code = 754) 9.9 fL 9.4-12 .4 NUCLEATED RED BLOOD CELLS (BEAKER) (test code = 413) 0 /100 WBC 0 -0 NEUTROPHILS RELATIVE PERCENT (BEAKER) (test code = 429) 64 % LYMPHOCYTES RELATIVE PERCENT (BEAKER) (test code = 430) 25 % MONOCYTES RELATIVE PERCENT (BEAKER) (test code = 431) 8 % EOSINOPHILS RELATIVE PERCENT (BEAKER) (test code = 432) 2 % BASOPHILS RELATIVE PERCENT (BEAKER) (test code = 437) 1 % NEUTROPHILS ABSOLUTE COUNT (BEAKER) (test code = 670) 4.70 K/ L 1.78-5.38 LYMPHOCYTES ABSOLUTE COUNT (BEAKER) (test code = 414) 1.83 K/ L 1.32-3.57 MONOCYTES ABSOLUTE COUNT (BEAKER) (test code = 415) 0.62 K/ L 0. 30-0.82 EOSINOPHILS ABSOLUTE COUNT (BEAKER) (test code = 416) 0.16 K/ L 0.04-0.54 BASOPHILS ABSOLUTE COUNT (BEAKER) (test code = 417) 0.05 K/ L 0. 01-0.08 IMMATURE GRANULOCYTES-RELATIVE PERCENT (BEAKER) (test code = 2801) 0 % 0-1 [id number] 02:45:00* Test Item Value Reference Range Interpretation Comments PARTIAL THROMBOPLASTIN TIME (BEAKER) (test code = 760) 41.4 seconds 22.5-36.0 H [id number] 00:14:00* Test Item Value Reference Range Interpretation Comments PARTIAL THROMBOPLASTIN TIME (BEAKER) (test code = 760) 127.3 sec onds 22.5-36.0 H [id number] 00:10:00* Test Item Value Reference Range Interpretation Comments MAGNESIUM (BEAKER) (test code = 627) 1.9 mg/dL 1.6-2.6 Specimen moderately hemolyzed Window Glazier Helper ID - PIAYA [id number] 00:10:00* Test Item Value Reference Range Interpretation Comments POTASSIUM (BEAKER) (test code = 379) 3.9 meq/L 3.5-5.1 Specimen moderately hemolyzed Window Glazier Helper ID - PIAYA L-per b#[id number], patient is on a balloon pump, which may hemo lyze the blood-note: Result(s) may not reflect true value(s) due to hemolysisOp erator ID - PIAYA LPOCT-GLUCOSE [id number] 21:38:00* Test Item Value Reference Range Interpretation Comments POC-GLUCOSE METER (BEAKER) (test code = 1538) 209 mg/dL 70-110 H : TESTED AT [place] [address] [facility], [address]: Window Glazier Helper/Financial Accounting Manager ID = [id number] for Amairani Allen [id number] 17:10:00* Test Item Value Reference Range Interpretation Comments PARTIAL THROMBOPLASTIN TIME (BEAKER) (test code = 760) 57.5 seconds 22.5-36.0 H POCT-GLUCOSE [id number] 16:44:00* Test Item Value Reference Range Interpretation Comments POC-GLUCOSE METER (BEAKER) (test code = 1538) 144 mg/dL 70-110 H : TESTED AT [place] [address] [facility], [address]: Window Glazier Helper/Financial Accounting Manager ID = [id number] for CECI CLARK POCT-GLUCOSE [id number] 13:30:00* Test Item Value Reference Range Interpretation Comments POC-GLUCOSE METER (BEAKER) (test code = 1538) 112 mg/dL 70-110 H : TESTED AT [place] [address] [facility], [address]: Window Glazier Helper/Financial Accounting Manager ID = [id number] for Janette Gonsalves PLATELET AGGREGATION: FUNCTION [id number] 11:48:00* Test Item Value Reference Range Interpretation Comments [id number] (BEAKER) (test code = 2622) Diana Young MD (electronic signature) PLATELET COUNT AGG (BEAKER) (test code = 2656) 168 K/CU MM 150-450 ADP (BEAKER) (test code = 4654) 11 % 62-100 L PLATELET RICH PLASMA(BEAKER) (test code = 2134) 245 k/cu mm 200-30 0 PLATELET FUNCTION SCREEN INTERPRETATION (BEAKER) (test code = 4655) Pattern of disaggregation present with ADP which may be characteristic of P2Y12 inhibitor effect. Correlation with medication history is required. Platelet Function Screen results may be falsely low with platelet counts< 75,000/cu mm.Window Glazier Helper ID - [id number] Doppler [id number] 11:08:09 Ejection FractionSLEH ECHO HEARTLAB MKCKESSON CPACSRight Impression1. There is < 50% diameter reduction (approximately 19.8% by 2-D measurement)in the internal c arotid artery with a peak velocity of 58/11 cm/sec andheterogeneous plaque.2. Th ere is non-occluding plaque in the external carotid artery.3. There is non-occlu ding plaque in the common carotid artery.4. The vertebral artery is not visualiz ed.5. The subclavian artery is within normal limits where visualized.Left Impres sion1. There is <50% diameter reduction (approximately 19.4% by 2-D measurement)in the internal carotid artery with a peak velocity of 47/25 cm/sec andheterogeneous plaque.2. There is non-occluding plaque in the external carotid artery.3. There is non-occluding plaque in the common carotid artery.4. The vertebral artery flow is antegrade .5. The subclavian artery is within normal limits where visualized. Conclusions Summary Carotid duplex [...] Diameters are measured in cm Carotid Right Measurements+--- +----+----+-----+ + + +!Locatio n !PSV !EDV !Angle!%Stenosis 2D!%Stenosis Doppler!Tortuosity !+ ----+----+----+-----+ + + +!Prox CCA !45.2! !60 ! ! ! !+ +--- -+----+-----+ + + +!Dist CCA !40.8!15 .2!60 ! ! ! !+ +----+----+- ----+ + + +!Prox ICA !58.5!11.3!60 !19.8% !<50% ! !+ +----+----+-----+ +----- + +!Dist ICA !54.1!24.6!60 ! ! ! !+ +----+----+-----+ + ----+ +!Prox ECA !71.3!21.6!60 ! ! ! !+ +----+----+-----+ + +--- --------+!Prox Subclavian!50.1! !60 ! ! ! !+ +----+----+-----+ + + + - There is antegrade vertebral flow noted on the right side. - Additional Measurements:ICAPSV/CCAPSV 1.43. Carotid Left Measurements+ +----+ ----+-----+ + + +!Location !PSV !EDV !Angle!%Stenosis 2D!%Stenosis Doppler!Tortuosity !+ +----+----+--- --+ + + +!Prox CCA !69.8!22.6!60 ! ! ! !+ +----+----+-----+----- -------+ + +!Dist CCA !58 !26.5!60 ! ! ! !+ +----+----+-----+ + + +!Prox ICA !47.2!25.6!60 !19.4% !<50% ! !+ +----+----+-----+ +----- + +!Dist ICA !65.9!40.3!60 ! ! ! !+ +----+----+-----+ + ----+ +!Prox ECA !60 !23.1!60 ! ! ! !+ +----+----+-----+ + +--- --------+!Vertebral !34.9!15.2!60 ! ! ! !+ +----+----+-----+ + + +!Prox Subclavian!68.3! !60 ! ! ! !+-- +----+----+-----+ + + + - Th ere is antegrade vertebral flow noted on the left side. - Additional Measureme nts:ICAPSV/CCAPSV 1.14.ICAEDV/CCAEDV 1.78. Interface, External Ris In - 09/19/19 11:08 AM CDTPV LAB - Carotid Duplex Study Demographics Patient Name ARACELI CARRILLO Date of Study 09/19/2019 Age 63 Visit Number [id number] Gender Male Accession Number [id number] Date of 1955 Ref jennifer Bautista Room Number 6219 Physician Ornamental Plasterer Helper Zaida Blackwell Interpreting Janine Campbell [facility] Physician ProcedureType of Study: Cerebral: Hankins tid, CAROTID DOPPLER, BILATERAL. Indications for Study:Preop ACB.Patient Status: TODAY.Study Location:Portable.Technical Quality:Adequate visualization.Risk Fact orsHistory of Disease+ + + +!Diagnosis !Date !Comments !+ + + --------+!History/Risk Factors: !09/19/2019!CAD !! ! !IABP via RT groin !+ + + +Imp ressionsRight Impression1. There is <50% diameter reduction (approximately 19.8% by 2-D measurement)in the internal carotid artery with a peak velocity of 58/11 cm/sec andheterogeneous plaque.2. There is non-occluding plaque in the external carotid artery.3. There is non-occluding plaque in the common carotid artery.4. The vertebral artery is not visualized.5. The subclavian artery is within normal limits where visualized.Left Impression1. There is <50% diameter reduction (approximately 19.4% by 2-D measurement)in the internal carotid artery with a peak velocity of 47/25 cm/sec andheterogeneous plaque.2. There is non-occluding plaque in the external carotid artery.3. There is non-occluding plaque in the common carotid artery.4. The vertebral artery flow is antegrade .5. The subclavian artery is within normal limits where visualized. Conclusions Summary Carotid duplex [...] in cm/s ; Diameters are measured in cmCarotid Right Measurements+---- +----+----+-----+ + + +!Location !PSV !EDV !Angle!%Stenosis 2D!%Stenosis Doppler!Tortuosity !+ ---+----+----+-----+ + + +!Prox CCA ! 45.2! !60 ! ! ! !+ +---- +----+-----+ + + +!Dist CCA !40.8!15. 2!60 ! ! ! !+ +----+----+-- ---+ + + +!Prox ICA !58.5!11.3!60 ! 19.8% !<50% ! !+ +----+----+-----+ +----- + +!Dist ICA !54.1!24.6!60 ! ! ! !+ +----+----+-----+ + ----+ +!Prox ECA !71.3!21.6!60 ! ! ! !+ +----+----+-----+ + +--- --------+!Prox Subclavian!50.1! !60 ! ! ! !+ +----+----+-----+ + + + - There is antegrade vertebral flow noted on the right side. - Additional Me asurements:ICAPSV/CCAPSV 1.43.Carotid Left Measurements+ +----+--- -+-----+ + + +!Location !PSV !EDV !An gle!%Stenosis 2D!%Stenosis Doppler!Tortuosity !+ +----+----+-----+ + + +!Prox CCA !69.8!22.6!60 ! ! ! !+ +----+----+-----+-------- ----+ + +!Dist CCA !58 !26.5!60 ! ! ! !+ +----+----+-----+ +--- + +!Prox ICA !47.2!25.6!60 !19.4% !<50% ! !+ +----+----+-----+ +----- + +!Dist ICA !65.9!40.3!60 ! ! ! !+ +----+----+-----+ + ----+ +!Prox ECA !60 !23.1!60 ! ! ! !+ +----+----+-----+ + +--- --------+!Vertebral !34.9!15.2!60 ! ! ! !+ +----+----+-----+ + + +!Prox Subclavian!68.3! !60 ! ! ! !+-- +----+----+-----+ + + + - The re is antegrade vertebral flow noted on the left side. - Additional Measurement s:ICAPSV/CCAPSV 1.14.ICAEDV/CCAEDV 1.78.[facility] Hospital[facility] Legs [id number] 11:07:52Ejection FractionSLEH ECHO HEARTLAB MKCKESSON CPACSRight Impression1. There is no deep venous venous obstruction in the profunda femoral,femoral, posterior tibial or peroneal veins.2. The common femoral and popliteal veins are not visualized due to IABPplacement.3. There is no superficial venous obstruction in the great saphenous veinwhere visualized.Left Impression1. There is no deep venous obstruction in the common femoral, profundafemoral, femoral, popliteal, posterior tibial or peroneal veins.2. There is no superficial venous obstruction in the great saphenous vein. Conclusions Summary Venous duplex imaging and compression of the bilateral lower extremities was performed. The veins were adequately visualized except as stated above. The bilateral venous systems were patent and compressible with no evidence of thrombus. Superficial venous measurements are documented below. Signature ---- Velocities are measured in cm/s ; Diameters are measured in cm LE Vein Eliza ing Superficial - Great Saphenous Vein Right Left + + + + + + + + !Location ! !Diameter !Depth ! !Diameter !Depth ! + + + + + + + ----+ !Sapheno Femoral Junction ! !0.24 ! ! !0.48 ! ! + + + + ---------+ + + + !GSV High Thigh ! !0.4 ! ! !0.32 ! ! + + + + + + + + !GSV Mid Thigh ! !0.44 ! ! !0.27 ! ! + ----+ + + + +-------- + + !GSV Low Thigh ! !0.36 ! ! !0.3 ! ! + + +--- + + + + + !GSV Knee ! !0.31 ! ! !0.28 ! ! + + + + + + ----+ + !GSV High Calf ! !0.33 ! ! !0.32 ! ! +-------- + + ---------+ + + +----- + !GSV Mid Calf ! !0.39 ! ! !0.29 ! ! + + + + + + + + !GSV Low Calf ! !0.46 ! ! !0.34 ! ! + + + + + + + ----+ !GSV Ankle ! !0.46 ! ! + + + + + Inte rface, External Ris In - 09/19/2019 11:08 AM CDTPV LAB - Lower Extremities Vein Mapping Demographics Patient Name ARACELI MOTTA Date of Study Age 63 Visit Numb er [id number] Gender Male Accession Number [id number] Date of 1955 Referring Donny Bautista Room Number 2901 Physician Ornamental Plasterer Helper Zadia Blackwell Interpreting DIONI BarrientosT Physician ProcedureType of Study: Veins: Lower Extremity Vein Mapping, VEIN MAPPING, LOWER EXTREMITY, BILATERAL. Indications for Study:Pre ACB.Patient Status:Routine .Study Location:Portable.Technical Quality:Adequate visualization.Risk FactorsHi story of Disease+ + + +!Diagnosis !Date !Comments !+ + + ---+!History/Risk Factors: !09/19/2019!CAD ! ! ! !IABP via RT groin !+--- + + +Impressi onsRight Impression1. There is no deep venous venous obstruction in the profunda femoral,femoral, posterior tibial or peroneal veins.2. The common femoral and p opliteal veins are not visualized due to IABPplacement.3. There is no superficia l venous obstruction in the great saphenous veinwhere visualized.Left Impression 1. There is no deep venous obstruction in the common femoral, profundafemoral, f emoral, popliteal, posterior tibial or peroneal veins.2. There is no superficial venous obstruction in the great saphenous vein. Conclusions Summary Venous du plex imaging and compression of the bilateral lower extremities was performed. T he veins were adequately visualized except as stated above. The bilateral venous systems were patent and compressible with no evidence of thrombus. Superficial venous measurements are documented below. Signature Velocities are measured in cm/s ; Diameters are measured in cmLE Vein Mapping Superficial - Great Saphenous Vein Right Left + + +---- + + + + + !Location ! !Diameter !Depth ! !Diameter !Depth ! + + + + + + ---+ + !Sapheno Femoral Junction ! !0.24 ! ! !0.48 ! ! +--------- + + --------+ + + +------ + !GSV High Thigh ! !0.4 ! ! !0.32 ! ! + + + +- + + + + !GSV Mid Thigh ! !0.44 ! ! !0.27 ! ! + + + + + + + ---+ !GSV Low Thigh ! !0.36 ! ! !0.3 ! ! + + + + --------+ + + + !GSV Knee ! !0.31 ! ! !0.28 ! ! + + + + + + + + !GSV High Calf ! !0.33 ! ! !0.32 ! ! + ---+ + + + +--------- + + !GSV Mid Calf ! !0.39 ! ! !0.29 ! ! + + +---- + + + + + !GSV Low Calf ! !0.46 ! ! !0.34 ! ! + + + + + + ---+ + !GSV Ankle ! !0.46 ! ! +--------- + + +------ + [facility]55:00* Test Item Value Reference Range Interpretation Comments POC-GLUCOSE METER (BEAKER) (test code = 1538) 136 mg/dL 70-110 H : TESTED AT [address], [address]: Window [employer] Helper/Financial Accounting Manager ID = [id number] for CECI CLARK [id number] 09:50:00* Test Item Value Reference Range Interpretation Comments PARTIAL THROMBOPLASTIN TIME (BEAKER) (test code = 760) 55.5 seconds 22.5-36.0 H RAD, CHEST, 1 VIEW, NON [id number] 08:36:00Reason for exam:->IABP positionShould this be performed at the bedside?->YesFINAL REPORT RAD, CHEST, 1 VIEW, NON DEPT INDICATION: IABP position COMPARISON: September 18, 2019 FINDINGS: Portable frontal view of the chest. IMPRESSION: Support Lines: Intra-aortic balloon pump marker projects at the inferior border of the aortic arch. Lungs and pleura: Lungs are clear. No effusion. No pneumothorax.Heart and mediastinum: Stable contours. Additional findings: None. Signed: JR Ese, Tom BENITOeport Verified Date/Time: 09/19/2019 08:36:58 Reading Location: [address] Neuro Reading Room Electronically s igned by: TOM MULLIGAN on 09/19/2019 08:36 AM POCT-GLUCOSE METER 2019-09-19 08:03:00* Test Item Value Reference Range Interpretation Comments POC-GLUCOSE METER (BEAKER) (test code = 1538) 167 mg/dL 70-110 H : TESTED AT [address], [address]: Window Glazier Helper/Financial Accounting Manager ID = [id number] for LOLA VIZCARRA TROPONIN [id number] 03:10:00* Test Item Value Reference Range Interpretation Comments TROPONIN I (BEAKER) (test code = 397) 6.94 ng/mL 0.00-0.03 HH Troponin I (TnI) levels must be interpreted in the context of the presenting sym ptoms and the clinical findings. Elevated TnI levels indicate myocardial damage, but are not specific for ischemic heart disease. Elevated TnI levels are seen in patients with other cardiac conditions (including myocarditis and congestive h eart failure), and slight TnI elevations occur in patients with other conditions , including sepsis, renal failure, acidosis, acute neurological disease, and per sistent tachyarrhythmia.Window Glazier Helper ID - PIAYA LBASIC METABOLIC [id number] 02:40:00* Test Item Value Reference Range Interpretation Comments SODIUM (BEAKER) (test code = 381) 136 meq/L 136-145 POTASSIUM (BEAKER) (test code = 379) 4.2 meq/L 3.5-5.1 Specimen slightly hemolyzed CHLORIDE (BEAKER) (test code = 382) 107 meq/L 98-107 CO2 (BEAKER) (test code = 355) 20 meq/L 22-29 L BLOOD UREA NITROGEN (BEAKER) (test code = 354) 11 mg/dL 7-21 CREATININE (BEAKER) (test code = 358) 0.65 mg/dL 0.57-1.25 Specimen slightly hemolyzed GLUCOSE RANDOM (BEAKER) (test code = 652) 120 mg/dL 70-105 H CALCIUM (BEAKER) (test code = 697) 8.8 mg/dL 8.4-10.2 EGFR (BEAKER) (test code = 1092) 124 mL/min/1.73 sq m ESTIMATED GFR IS NOT ACCURATE CREATININE CLEARANCE IN PREDICTING GLOMERULAR FILTRATION RATE. ESTIMATED GFR IS NOT APPLICABLE FOR DIALYSIS PATIENTS. Window Glazier Helper ID Michelle [id number] 02:38:00* Test Item Value Reference Range Interpretation Comments PARTIAL THROMBOPLASTIN TIME (BEAKER) (test code = 760) 46.3 seconds 22.5-36.0 H 6 hours after starting heparin infusion and as indicated per sliding scaleCBC W/PLT COUNT & AUTO [id number] 02:24:00* Test Item Value Reference Range Interpretation Comments WHITE BLOOD CELL COUNT (BEAKER) (test code = 775) 7.2 K/ L 3.5- 10.5 RED BLOOD CELL COUNT (BEAKER) (test code = 761) 5.45 M/ L 4.63-6 .08 HEMOGLOBIN (BEAKER) (test code = 410) 16.5 GM/DL 13.7-17.5 HEMATOCRIT (BEAKER) (test code = 411) 49.0 % 40.1-51.0 MEAN CORPUSCULAR VOLUME (BEAKER) (test code = 753) 89.9 fL 79. 0-92.2 MEAN CORPUSCULAR HEMOGLOBIN (BEAKER) (test code = 751) 30.3 pg 25.7-32.2 MEAN CORPUSCULAR HEMOGLOBIN CONC (BEAKER) (test code = 752) 33.7 GM/DL 32.3-36.5 RED CELL DISTRIBUTION WIDTH (BEAKER) (test code = 412) 13.4 % 11.6-14.4 PLATELET COUNT (BEAKER) (test code = 756) 190 K/CU MM 150-450 MEAN PLATELET VOLUME (BEAKER) (test code = 754) 9.8 fL 9.4-12 .4 NUCLEATED RED BLOOD CELLS (BEAKER) (test code = 413) 0 /100 WBC 0 -0 NEUTROPHILS RELATIVE PERCENT (BEAKER) (test code = 429) 58 % LYMPHOCYTES RELATIVE PERCENT (BEAKER) (test code = 430) 31 % MONOCYTES RELATIVE PERCENT (BEAKER) (test code = 431) 8 % EOSINOPHILS RELATIVE PERCENT (BEAKER) (test code = 432) 2 % BASOPHILS RELATIVE PERCENT (BEAKER) (test code = 437) 1 % NEUTROPHILS ABSOLUTE COUNT (BEAKER) (test code = 670) 4.14 K/ L 1.78-5.38 LYMPHOCYTES ABSOLUTE COUNT (BEAKER) (test code = 414) 2.22 K/ L 1.32-3.57 MONOCYTES ABSOLUTE COUNT (BEAKER) (test code = 415) 0.59 K/ L 0. 30-0.82 EOSINOPHILS ABSOLUTE COUNT (BEAKER) (test code = 416) 0.13 K/ L 0.04-0.54 BASOPHILS ABSOLUTE COUNT (BEAKER) (test code = 417) 0.07 K/ L 0. 01-0.08 IMMATURE GRANULOCYTES-RELATIVE PERCENT (BEAKER) (test code = 2801) 0 % 0-1 TROPONIN [id number] 20:55:00* Test Item Value Reference Range Interpretation Comments TROPONIN I (BEAKER) (test code = 397) 7.66 ng/mL 0.00-0.03 HH Troponin I (TnI) levels must be interpreted in the context of the presenting sym ptoms and the clinical findings. Elevated TnI levels indicate myocardial damage, but are not specific for ischemic heart disease. Elevated TnI levels are seen in patients with other cardiac conditions (including myocarditis and congestive h eart failure), and slight TnI elevations occur in patients with other conditions , including sepsis, renal failure, acidosis, acute neurological disease, and per sistent tachyarrhythmia.Window Glazier Helper ID - DBPOCT-GLUCOSE [id number] 20:30:00* Test Item Value Reference Range Interpretation Comments POC-GLUCOSE METER (BEAKER) (test code = 1538) 156 mg/dL 70-110 H : TESTED AT [place] [id number] [facility], [address]: Window Glazier Helper/Financial Accounting Manager ID = [id number] for BEATRICE ALCALA [id number] 18:27:00* Test Item Value Reference Range Interpretation Comments PARTIAL THROMBOPLASTIN TIME (BEAKER) (test code = 760) 35.6 seconds 22.5-36.0 POCT-GLUCOSE [id number] 16:54:00* Test Item Value Reference Range Interpretation Comments POC-GLUCOSE METER (BEAKER) (test code = 1538) 179 mg/dL 70-110 H : TESTED AT [facility] [address] [facility], [address]: Window Glazier Helper/Financial Accounting Manager ID = [id number] for RAUL INFANTE 2D Echo W/Doppler(CW/PW/Color)2019-09-18 15:14:58Ejection FractionSLEH ECHO HEARTLAB MKCKESSON CPACSInterface, External Ris In - 09/18/2019 3:15 PM CDTTransthoracic Echocardiography Report (TTE) Demographics Patient Name ARACELI MOTTA Date of Study 09/18/2019 Gender Male Visit Number [id number] Race Unknown Room Number 6219 Number Date of 1955 Referring Physician Romeo Pollock Age 63 year(s) Ornamental Plasterer Helper Deshaun Muñoz [facility] Siva Hanna Interpreting Franklyn Segovia MD Procedure Type of Study TTE procedure:2DECHO W DOPPLER(CW/PW/COLOR) (STAT) Indications:CAD and Pre-op.Clinical HistoryHGB 16.6HCT 47.9 %DMHTNHLDCADContrast Medium: Definity.Height: 72 inches Weight: 105.69 kg (233 lbs) BSA: 2.27 m^2 BMI: 31.6 kg/m^2HR: 66 bpm BP: 106/84 mmHg Summary The [...] for comparison. Signature Findings Technical Quality: Technically adequ ate exam. Left Ventricle The left ventricle is chamber size (by PSLAX dimension) is normal (male - LVIDd 4.2-5.8cm) . Normal LV wall thickness. The following segme nt(s) appear akinetic: distal inferior . The following [...] Right Ventricle RV chamber size is mildly e nlarged . Global RV systolic function is normal . Right Atrium RA cavity size is normal . Aortic Valve Mild AoV cus p calcification. AoV area at rest by continuity equation is in the range of 2.01 cm2. Mitral Valve Mild mitral annular calcification. Mild MV leaflet thickening. Tricuspid Valve Unable to estimate peak systolic PA pressure; inadequate TR velocity signal. Pulmonic Valve Normal PV structure and function. Aorta Aortic root size (SInus of Valsa lva diameter) is normal . Proximal ascending aorta size m ildly dilated . 4 cm Pericardium No significa nt pericardial effusion is visualized. IVC/SVC/PA/PV/Pleural The estimated RA pressure by IVC dynamics 5-10mmHg . Chambers/Structures L eft Atrium LA Volume: 79.36 ml LA Area: 23.79 cm^2 LA Vol. Index: 35 ml/m^2 Left Ventricle LVIDd: 5.3 cm LV Septum Diastolic: 0.92 cm LV PW Diastolic: 0.86 cm LVEDV Jacobs's:120.54 ml LVESV Jacobs's:63.49 ml LVEF Si mpson's: 47.3 % LVEDVI: 53 ml/m^2 LVESVI: 28 ml/m^2 LVOT Diameter: 2.24 cm Right Atrium RA Vol. (Sngl Plane): 53.38 ml Right Ventricle TAPSE: 2.01 cm Aorta Ao Root S of Dawn.: 3.08 cm Ascending Aorta: 4.02 cm Do ppler/Quantitative Measurements Mitral Valve MV Peak E-Wave: 0.6 m/s MV Peak A-Wave: 0.71 m/s E/A Ratio: 0. 84 Peak Gradient: 1.42 mmHg Deceleration Time: 260.9 msec MV Abelardo. Peak: Tissue Dop pler E' Septal Velocity: 0.05 m/s E/E': 12.59 E' Lateral Velocity: 0.0 9 m/s Aortic Valve Peak Velocity: 1.96 m/s Mean Velocity: 1.2 8 m/s Peak Gradient: 15.42 mmHg Mean Gradient: 7.74 mmHg AV Area (continuity): 2.01 cm^2 Area (2D): 2.05 cm^2 AV VTI: 37.65 cm AV DVI: 0.51 LVOT Peak Velocity: 1.08 m/s Peak Gradient: 4.68 mmHg Mean Ve locity: 0.66 m/s Mean Gradient: 2.15 mmHg LVOT Diameter: 2.24 cm LVOT VTI: 19.2 cm LVOT Area: 3.94 cm^2 LVOT SV:75.63 ml LVOT CO: 4.99 l/min LVOT CI: 2.2 l/min/m^2 [facility]REG[facility]: FUNCTION [id number] 14:00:00* Test Item Value Reference Range Interpretation Comments [id number] (BEAKER) (test code = 2622) Diana Young MD (electronic signature) PLATELET COUNT AGG (BEAKER) (test code = 2656) 181 K/CU MM 150-450 ADP (BEAKER) (test code = 4654) 26 % 62-100 L PLATELET RICH PLASMA(BEAKER) (test code = 2134) 254 k/cu mm 200-30 0 PLATELET FUNCTION SCREEN INTERPRETATION (BEAKER) (test code = 4655) Decreased aggregation with ADP which indicates platelet dysfunction that may be due to medication effect, uremia, or other platelet function disorders. Clinical correlation is required. Platelet Function Screen results may be falsely low with platelet counts< 75,000/cu mm.Window Glazier Helper ID - [id number] [id number] 12:38:00* Test Item Value Reference Range Interpretation Comments TROPONIN I (BEAKER) (test code = 397) 10.77 ng/mL 0.00-0.03 HH Troponin I (TnI) levels must be interpreted in the context of the presenting sym ptoms and the clinical findings. Elevated TnI levels indicate myocardial damage, but are not specific for ischemic heart disease. Elevated TnI levels are seen in patients with other cardiac conditions (including myocarditis and congestive h eart failure), and slight TnI elevations occur in patients with other conditions , including sepsis, renal failure, acidosis, acute neurological disease, and per sistent tachyarrhythmia.Window Glazier Helper ID - LMRAD, CHEST, 1 VIEW, NON [id number] 12:07:00Reason for exam:->IABP exchangeShould this be performed at the bedside?- >YesFINAL REPORT RAD, CHEST, 1 VIEW, NON DEPT INDICATION: IABP exchange COMPARISON: 8 hours prior FINDINGS: Portable frontal view of the chest. IMPRESSION: Support Lines: Interval exchange of intra-aortic balloon pump. Marker projects over the arch. Lungs and pleura: No new consolidation or effusion. No pneumothorax.Heart and mediastinum: Stable contours. Additional findings: None. Signed: JR Mulligan Robert MDReport Verified Date/Time: 09/18/2019 12:07:21 Reading Location: [address] Neuro Reading Room 2019-09-18 11:46:00* Test Item Value Reference Range Interpretation Comments PARTIAL THROMBOPLASTIN TIME (BEAKER) (test code = 760) 36.0 seconds 22.5-36.0 POCT-GLUCOSE [id number] 11:40:00* Test Item Value Reference Range Interpretation Comments POC-GLUCOSE METER (BEAKER) (test code = 1538) 154 mg/dL 70-110 H : TESTED AT [facility] [address] [facility], [address]: Window Glazier Helper/Financial Accounting Manager ID = [id number] for RAUL INFANTE HEMOGLOBIN [id number] 08:48:00* Test Item Value Reference Range Interpretation Comments HEMOGLOBIN A1C (BEAKER) (test code = 368) 8.6 % 4.3-6.1 H POCT-GLUCOSE [id number] 08:02:00* Test Item Value Reference Range Interpretation Comments POC-GLUCOSE METER (BEAKER) (test code = 1538) 125 mg/dL 70-110 H : TESTED AT [facility] [address] [place], [address]: Window Glazier Helper/Financial Accounting Manager ID = [id number] for RAUL INFANTE TROPONIN [id number] 06:30:00* Test Item Value Reference Range Interpretation Comments TROPONIN I (BEAKER) (test code = 397) 5.07 ng/mL 0.00-0.03 HH Troponin I (TnI) levels must be interpreted in the context of the presenting sym ptoms and the clinical findings. Elevated TnI levels indicate myocardial damage, but are not specific for ischemic heart disease. Elevated TnI levels are seen in patients with other cardiac conditions (including myocarditis and congestive h eart failure), and slight TnI elevations occur in patients with other conditions , including sepsis, renal failure, acidosis, acute neurological disease, and per sistent tachyarrhythmia.Patient has aortic balloon pumpOperator ID - PIAYA L [id number] 03:52:00* Test Item Value Reference Range Interpretation Comments MAGNESIUM (BEAKER) (test code = 627) 1.8 mg/dL 1.6-2.6 Specimen markedly hemolyzed Patient has aortic balloon pumpOperator ID - PIAYA LBASIC METABOLIC PANEL 2019-09-18 03:52:00* Test Item Value Reference Range Interpretation Comments SODIUM (BEAKER) (test code = 381) 135 meq/L 136-145 L POTASSIUM (BEAKER) (test code = 379) 4.7 meq/L 3.5-5.1 Specimen markedly hemolyzed CHLORIDE (BEAKER) (test code = 382) 107 meq/L 98-107 CO2 (BEAKER) (test code = 355) 18 meq/L 22-29 L BLOOD UREA NITROGEN (BEAKER) (test code = 354) 9 mg/dL 7-21 CREATININE (BEAKER) (test code = 358) 0.70 mg/dL 0.57-1.25 Specimen markedly hemolyzed GLUCOSE RANDOM (BEAKER) (test code = 652) 117 mg/dL 70-105 H CALCIUM (BEAKER) (test code = 697) 9.2 mg/dL 8.4-10.2 EGFR (BEAKER) (test code = 1092) 114 mL/min/1.73 sq m ESTIMATED GFR IS NOT ACCURATE CREATININE CLEARANCE IN PREDICTING GLOMERULAR FILTRATION RATE. ESTIMATED GFR IS NOT APPLICABLE FOR DIALYSIS PATIENTS. Patient has aortic balloon pumpOperator ID - WAQAR LLIPID [id number] 03:52:00* Test Item Value Reference Range Interpretation Comments TRIGLYCERIDES (BEAKER) (test code = 540) 616 mg/dL Specimen markedly hemolyzed CHOLESTEROL (BEAKER) (test code = 631) 178 mg/dL Specimen markedly hemolyzed HDL CHOLESTEROL (BEAKER) (test code = 976) 30 mg/dL Calculated LDL not valid if triglyceride >400 mg/dLTriglyceride Reference Range: Low Risk <150 Borderline 150-199 High Risk 200-499 Very High Risk >=500Cholesterol Reference Range: Low Risk <200 Borderline 200-239 High Risk >240HDL Cholesterol Reference Range: Low Risk >=60 High Risk <40LDL Cholesterol Reference Range: Optimal <100 Near Optimal 100-129 Borderline 130-159 High 160-189 Very High >=190 Patient has aortic balloon pumpOperator ID - WAQAR [id number] 03:41:00* Test Item Value Reference Range Interpretation Comments PARTIAL THROMBOPLASTIN TIME (BEAKER) (test code = 760) 29.0 seconds 22.5-36.0 Prior to initiating heparinTSH/Free T4 If [id number] 03:29:00* Test Item Value Reference Range Interpretation Comments TSH (test code = 86126-1) 0.736 0.350- 4.940 uIU/mL LOLA (test code = LOLA) Window Glazier Helper ID - WAQAR L Lab Interpretation (test code = 27549-1) [facility] T[facility] IF [id number] 03:29:00* Test Item Value Reference Range Interpretation Comments THYROID STIMULATING HORMONE (BEAKER) (test code = 772) 0.736 uIU /mL 0.350-4.940 Window Glazier Helper ID - WAQAR LB-TYPE NATRIURETIC FACTOR (BNP)2019-09-18 03:15:00* Test Item Value Reference Range Interpretation Comments B-TYPE NATRIURETIC PEPTIDE (BEAKER) (test code = 700) 18 pg/mL 0-100 Window Glazier Helper ID - WAQAR LRAD, CHEST, 1 VIEW, NON [id number] 02:55:00Reason for exam:->IABPShould this be performed at the bedside?->YesFINAL REPORT Chest one view. Clinical history: IABP Comparison: None. Technique: A single frontal view of the chest was obtained. Findings:There is an intra- aortic balloon pump with radiopaque marker at the inferior aspect of the aortic knob.The cardiac silhouette is mildly enlarged. The aorta is uncoiled and atherosclerotic. There is no focal pulmonary consolidation, pleural effusion or pneumothorax. There is no pulmonary edema. The bony thorax is unremarkable. Signed: Kadeem Saavedramidstate [facility] Verified Date/Time: 09/18/2019 02:55:04 W/PLT COUNT & AUTO [id number] 02:53:00* Test Item Value Reference Range Interpretation Comments WHITE BLOOD CELL COUNT (BEAKER) (test code = 775) 9.2 K/ L 3.5- 10.5 RED BLOOD CELL COUNT (BEAKER) (test code = 761) 5.25 M/ L 4.63-6 .08 HEMOGLOBIN (BEAKER) (test code = 410) 16.6 GM/DL 13.7-17.5 HEMATOCRIT (BEAKER) (test code = 411) 47.9 % 40.1-51.0 MEAN CORPUSCULAR VOLUME (BEAKER) (test code = 753) 91.2 fL 79. 0-92.2 MEAN CORPUSCULAR HEMOGLOBIN (BEAKER) (test code = 751) 31.6 pg 25.7-32.2 MEAN CORPUSCULAR HEMOGLOBIN CONC (BEAKER) (test code = 752) 34.7 GM/DL 32.3-36.5 RED CELL DISTRIBUTION WIDTH (BEAKER) (test code = 412) 13.4 % 11.6-14.4 PLATELET COUNT (BEAKER) (test code = 756) 220 K/CU MM 150-450 MEAN PLATELET VOLUME (BEAKER) (test code = 754) 10.1 fL 9.4-12 .4 NUCLEATED RED BLOOD CELLS (BEAKER) (test code = 413) 0 /100 WBC 0 -0 NEUTROPHILS RELATIVE PERCENT (BEAKER) (test code = 429) 63 % LYMPHOCYTES RELATIVE PERCENT (BEAKER) (test code = 430) 28 % MONOCYTES RELATIVE PERCENT (BEAKER) (test code = 431) 7 % EOSINOPHILS RELATIVE PERCENT (BEAKER) (test code = 432) 2 % BASOPHILS RELATIVE PERCENT (BEAKER) (test code = 437) 1 % NEUTROPHILS ABSOLUTE COUNT (BEAKER) (test code = 670) 5.73 K/ L 1.78-5.38 H LYMPHOCYTES ABSOLUTE COUNT (BEAKER) (test code = 414) 2.53 K/ L 1.32-3.57 MONOCYTES ABSOLUTE COUNT (BEAKER) (test code = 415) 0.68 K/ L 0. 30-0.82 EOSINOPHILS ABSOLUTE COUNT (BEAKER) (test code = 416) 0.16 K/ L 0.04-0.54 BASOPHILS ABSOLUTE COUNT (BEAKER) (test code = 417) 0.05 K/ L 0. 01-0.08 IMMATURE GRANULOCYTES-RELATIVE PERCENT (BEAKER) (test code = 2801) 0 % 0-1 Blood leukocytes automated count (number/volume)2019-09-17 17:03:00* Test Item Value Reference Range Interpretation Comments White Blood Count (test code = 6690-2) 10.58 4.8-10.8 [facility] automated count (number/volume)2019-09-17 17:03:00* Test Item Value Reference Range Interpretation Comments Red Blood Count (test code = 789-8) 5.86 4.3-5.7 [facility]Blood hemoglobin measurement (moles/volume)2019-09-17 17:03:00* Test Item Value Reference Range Interpretation Comments Hemoglobin (test code = 91878-3) 17.9 14.0-18.0 [facility] CampusAutomated blood hematocrit (volume fraction)2019-09-17 17:03:00* Test Item Value Reference Range Interpretation Comments Hematocrit (test code = 4544-3) 51.9 38.2-49.6 [facility] CampusAutomated erythrocyte mean corpuscular [id number] 17:03:00* Test Item Value Reference Range Interpretation Comments Mean Corpuscular Volume (test code = 787-2) 88.6 81-99 [facility] CampusAutomated erythrocyte mean corpuscular hemoglobin (mass per erythrocyte)2019-09-17 17:03:00* Test Item Value Reference Range Interpretation Comments Mean Corpuscular Hemoglobin (test code = 785-6) 30.5 28-32 [facility] CampusAutomated erythrocyte mean corpuscular hemoglobin concentration measurement (mass/volume)2019-09-17 17:03:00* Test Item Value Reference Range Interpretation Comments Mean Corpuscular Hemoglobin Concent (test code = 786-4) 34.5 31-35 [facility] CampusRDW [id number]-[id number] 17:03:00* Test Item Value Reference Range Interpretation Comments Red Cell Distribution Width (test code = 34998-3) 13.3 11.7 -14.4 [facility] CampusAutomated blood platelet count (count/volume)2019-09-17 17:03:00* Test Item Value Reference Range Interpretation Comments Platelet Count (test code = 777-3) 238 140-360 [facility] CampusAutcarepartners rehabilitation hospitaled blood segmented neutrophil count as percentage of total [id number] 17:03:00* Test Item Value Reference Range Interpretation Comments Neutrophils (%) (Auto) (test code = 15617-9) 74.7 38.7-80.0 [facility] CampusAutomated blood lymphocyte count as percentage ot total gfbiznptqr2228-76-03 17:03:00* Test Item Value Reference Range Interpretation Comments Lymphocytes (%) (Auto) (test code = 736-9) 16.7 18.0-39.1 [facility] CampusAutomated blood monocyte count as percentage of total [id number] 17:03:00* Test Item Value Reference Range Interpretation Comments Monocytes (%) (Auto) (test code = 5905-5) 6.6 4.4-11.3 [facility] CampusAutomated blood eosinophil count as percentage of total [id number] 17:03:00* Test Item Value Reference Range Interpretation Comments Eosinophils (%) (Auto) (test code = 713-8) 0.8 0.0-6.0 [facility] CampusAutomated blood basophil count as percentage of total [id number] 17:03:00* Test Item Value Reference Range Interpretation Comments Basophils (%) (Auto) (test code = 706-2) 0.7 0.0-1.0 [facility] CampusFluoroscopic procedure less than one hour [id number] 17:03:00* Test Item Value Reference Range Interpretation Comments IM GRANULOCYTES % (test code = IM GRANULOCYTES %) 0.5 0.0- 1.0 [facility] CampusAutomated blood neutrophil count 2019-09-17 17:03:00* Test Item Value Reference Range Interpretation Comments Neutrophils # (Auto) (test code = 751-8) 7.9 2.1-6.9 [facility] CampusBlood lymphocytes count (number/volume) 2019-09-17 17:03:00* Test Item Value Reference Range Interpretation Comments Lymphocytes # (Auto) (test code = 12067-6) 1.8 1.0-3.2 [facility] CampusBlood monocytes automated count (number/volume)2019-09-17 17:03:00* Test Item Value Reference Range Interpretation Comments Monocytes # (Auto) (test code = 742-7) 0.7 0.2-0.8 [facility] CampusAutomated blood eosinophil count 2019-09-17 17:03:00* Test Item Value Reference Range Interpretation Comments Eosinophils # (Auto) (test code = 711-2) 0.1 0.0-0.4 [facility] CampusAutomated blood basophil count (count/volume)2019-09-17 17:03:00* Test Item Value Reference Range Interpretation Comments Basophils # (Auto) (test code = 704-7) 0.1 0.0-0.1 [facility] CampusFluoroscopic procedure less than one hour [id number] 17:03:00* Test Item Value Reference Range Interpretation Comments Absolute Immature Granulocyte (auto (silvia t code = Absolute Immature Granulocyte (auto) 0.05 0-0.1 [facility] CampusProthrombin time (PT) in platelet poor plasma by coagulation [id number] 17:03:00* Test Item Value Reference Range Interpretation Comments Prothrombin Time (test code = 5902-2) 13.5 11.9-14.5 [facility] CampusINR in Platelet poor plasma by Coagulation peewz2075-09-22 17:03:00* Test Item Value Reference Range Interpretation Comments Prothromb Time International Ratio (test code = 6301-6) 0.97 Oral Anticoagulant Therapy INR Values:1. Low Intensity Therapy 1.5 - 2.02 . Moderate Intensity Therapy 2.0 - 3.03. High Intensity Therapy(1) 2.5 - 3. 54. High Intensity Therapy(2) 3.0 - 4.05. Panic Value INR > 5.0 [facility] CampusActivated partial thromboplastin time (aPTT) in platelet poor plasma by coagulation [id number] 17:03:00* Test Item Value Reference Range Interpretation Comments Activated Partial Thromboplast Time (test code = 87798-7) 26.9 23.8-35.5 [facility]erum or plasma sodium measurement (moles/volume)2019-09-17 17:03:00* Test Item Value Reference Range Interpretation Comments Sodium Level (test code = 2951-2) 138 136-145 [facility] Hospitalerum or plasma potassium measurement (moles/volume)2019-09-17 17:03:00* Test Item Value Reference Range Interpretation Comments Potassium Level (test code = 2823-3) 4.4 3.5-5.1 [facility] Hospitalerum or plasma chloride measurement (moles/volume)2019-09-17 17:03:00* Test Item Value Reference Range Interpretation Comments Chloride Level (test code = 2075-0) 102 98-107 [facility] carbon dioxide, total measurement (moles/volume)2019-09-17 17:03:00* Test Item Value Reference Range Interpretation Comments Carbon Dioxide Level (test code = 2028-9) 21 22-29 [facility] anion [id number] 17:03:00* Test Item Value Reference Range Interpretation Comments Anion Gap (test code = 15449-1) 19.4 8-16 [facility] urea nitrogen measurement (mass/volume)2019-09-17 17:03:00* Test Item Value Reference Range Interpretation Comments Blood Urea Nitrogen (test code = 3094-0) 10 7-26 [facility] creatinine measurement (mass/volume)2019-09-17 17:03:00* Test Item Value Reference Range Interpretation Comments Creatinine (test code = 2160-0) 0.93 0.72-1.25 [facility] urea nitrogen/creatinine mass [id number] 17:03:00* Test Item Value Reference Range Interpretation Comments BUN/Creatinine Ratio (test code = 3097-3) 11 6-25 [facility] filtration rate (GFR) [id number] 17:03:00* Test Item Value Reference Range Interpretation Comments Estimat Glomerular Filtration Rate (test code = 803891786) > 60 >60 Ranges were taken from the National Kidney Disease Education Program and the [facility] literature.Reference ranges:60 or greater: [id number] ( for 3 consecutive months): Chronic kidney disease 15 or less: Kidney failureThe [facility]als [facility] CampusGlucose [id number] 17:03:00* Test Item Value Reference Range Interpretation Comments Glucose Level (test code = SPR3321) 213 74-118 [facility] calcium measurement (mass/volume)2019-09-17 17:03:00* Test Item Value Reference Range Interpretation Comments Calcium Level (test code = 89358-3) 10.4 8.4-10.2 [facility] magnesium measurement (mass/volume)2019-09-17 17:03:00* Test Item Value Reference Range Interpretation Comments Magnesium Level (test code = 91506-3) 1.7 1.3-2.1 [facility] total bilirubin measurement (mass/volume)2019-09-17 17:03:00* Test Item Value Reference Range Interpretation Comments Total Bilirubin (test code = 1975-2) 0.6 0.2-1.2 [facility] CampusFluoroscopic procedure less than one hour [id number] 17:03:00* Test Item Value Reference Range Interpretation Comments Aspartate Amino Transf (AST/SGOT) (test code = Aspartate Amino Transf (AST/SGOT)) 23 5-34 [facility] alanine aminotransferase measurement (enzymatic activity/volume)2019-09-17 17:03:00* Test Item Value Reference Range Interpretation Comments Alanine Aminotransferase (ALT/SGPT) (test code = 1742-6) 38 0-55 [facility] protein measurement (mass/volume)2019-09-17 17:03:00* Test Item Value Reference Range Interpretation Comments Total Protein (test code = 2885-2) 7.7 6.5-8.1 [facility] albumin measurement (mass/volume)2019-09-17 17:03:00* Test Item Value Reference Range Interpretation Comments Albumin (test code = 1751-7) 4.5 3.5-5.0 [facility] CampusPlasma globulin measurement (mass/volume) 2019-09-17 17:03:00* Test Item Value Reference Range Interpretation Comments Globulin (test code = 16592-0) 3.2 2.3-3.5 [facility] albumin/globulin mass [id number] 17:03:00* Test Item Value Reference Range Interpretation Comments Albumin/Globulin Ratio (test code = 1759-0) 1.4 0.8-2.0 [facility] alkaline phosphatase measurement (enzymatic activity/volume)2019-09-17 17:03:00* Test Item Value Reference Range Interpretation Comments Alkaline Phosphatase (test code = 6768-6) 111 40-150 [facility] CampusBNP Afp-[id number] 17:03:00* Test Item Value Reference Range Interpretation Comments B-Type Natriuretic Peptide (test code = 14886-1) 22.3 0-100 [facility] creatine kinase measurement (enzymatic activity/volume)2019-09-17 17:03:00* Test Item Value Reference Range Interpretation Comments Creatine Kinase (test code = 2157-6) 146 30-200 [facility] creatine kinase MB measurement (mass/volume)2019-09-17 17:03:00* Test Item Value Reference Range Interpretation Comments Creatine Kinase MB (test code = 25804-0) 4.70 0-5.0 [facility] CampusTroponin I measurement by highly sensitive enzyme [id number] 17:03:00* Test Item Value Reference Range Interpretation Comments Troponin I (test code = 17018-0) < 0.001 0-0.300 [facility]
== END 2020-01-17 20:12 | disposition home or self-care (01) ==
LOC: FSED 19:30
DX: S83.92XA Sprain of unspecified site of left knee, initial encounter (principal); W17.89XA Other fall from one level to another, initial encounter; Y93.01 Activity, walking, marching and hiking; Y92.480 Sidewalk as the place of occurrence of the external cause; I10 Essential (primary) hypertension; E11.9 Type 2 diabetes mellitus without complications; I25.10 Atherosclerotic heart disease of native coronary artery without angina pectoris; E78.5 Hyperlipidemia, unspecified
CPT/HCPCS: 99283